=== PATIENT | male | born 1950 | race Caucasian/White ===

== ENCOUNTER 2019-12-01 22:32 | Emergency (ER) | payer MEDICARE, SELFPAY ==
[2019-12-01 22:55] VITALS: BP 179/85; PULSE 68; RESP 16; TEMP 37; O2SAT 98; BMI 28.7
--- NOTE | 2019-12-01 23:20 | XR_ITS ---
WS: [id number] XR chest 1V portable [id number] REASON FOR EXAM: pain FINDINGS: Fractures are noted in the left lateral chest seventh, eighth, ninth ribs. No pneumothorax. No pleural reaction. Scoliotic curve convex to the right. Arteriosclerotic changes in the arch of the aorta. There is no pneumonia, pleural effusion, or pulmonary edema. There is hilum and apices normal. XR/XR chest 1V portable [id number] IMPRESSION: Multiple rib fractures on the left side
--- NOTE | 2019-12-01 23:20 | W.ED.GENADLT ---
HPI - General Adult General: Chief complaint: General Medical Stated complaint: abd pain Time Seen by Provider: 12/01/19 23:09 Source: patient Mode of arrival: ambulatory Limitations: no limitations History of Present Illness: HPI narrative: Patient is a very nice 69-year-old male who presents to ED today with complaints of pain in the left lower chest/abdomen that began abruptly while coughing. Patient states he has done this previously and was reportedly told he had some cartilage in one of the left ribs. Patient states the pain can be directly reproduced with palpation and deep inhalation. He denies any substernal chest pain, difficulty breathing, shortness of breath. Onset (ago): hour(s) Location: chest and abdomen Radiation: non-radiation Relieving factors: none Exacerbating factors: movement and other (palpation, deep inhalation ) Associated symptoms: Deny chest pain, dyspnea, headache(s), nausea, rash, palpitations, syncope or vomiting Treatments prior to arrival: none Review of Systems Const: Denies: fever or chills Card: Denies: chest pain, palpitations, irregular heart rhythm, edema, lightheadedness, syncope, pre-syncope or shortness of breath when lying down Resp: Reports: pain on inspiration; Denies: shortness of breath, productive cough, non-productive cough, change in phlegm color, coughing up blood or chest congestion GI: Denies: abdominal pain, nausea, vomiting or diarrhea : Denies: flank pain, difficulty urinating, painful urination, urinary frequency, urinary urgency or urinary hesitancy Musc: Denies: neck pain or back pain Skin/Breast: Denies: rash Neuro: Denies: headache, numbness in extremities, weakness in extremities or changes in sensation PFS ED PFSH: Social History Smoking and tobacco status: current every day smoker Physical Exam Const: COMMON NORMALS: no apparent distress, average body habitus, oriented x3, no limitations, healthy appearing, alert and well nourished Chest: COMMONS NORMALS: inspection of chest normal and palpation of chest normal Resp: COMMON NORMALS: normal respiratory effort and clear to auscultation bilaterally AUSCULTATION: clear to auscultation bilaterally Cardio: COMMON NORMALS: regular rate and regular rhythm RATE: regular rate RHYTHM: regular rhythm GI: COMMON NORMALS: normal to inspection, nondistended, normoactive bowel sounds, soft to palpation, no hepatosplenomegaly and no masses PALPATION: Yes soft, Yes tender (LUQ; just inferior from bony ribs-palpation reproduces pain) and Yes no hepatosplenomegaly OTHER: pt with midline ventral hernia that he states has been present for years; non-painful : COMMON NORMALS: Yes no CVA tenderness BLADDER/KIDNEY EXAM: Yes no CVA tenderness Back/Pelvis: COMMON NORMALS: no CVA tenderness, thoracic and lumbar spine normal to inspection, no thoracic nor lumbar tenderness and thoraco-lumbar ROM normal Extremity: COMMON NORMALS: normal to inspection Neuro: COMMON NORMALS: oriented x3 SENSORIUM/ORIENTATION: Yes alert Skin: COMMON NORMALS: no rashes or lesions noted GENERAL SKIN EXAM: no rashes or lesions noted Course Vital Signs: Vital signs: Vital Signs Temperature 98.6 F 12/01/19 22:55 Pulse Rate 66 12/02/19 01:02 Respiratory Rate 14 12/02/19 01:02 Blood Pressure 164/73 12/02/19 01:02 Pulse Oximetry 98 12/02/19 01:02 [facility] - General Adult Lab Data: Labs: Lab Results 12/01/19 12/01/19 12/02/19 Range/Units 23:30 23:30 00:19 WBC 5.5 (4.0-10.0) 10^3/ uL RBC 4.47 (4.1-5.3) 10^6/u L Hgb 14.4 (11.7-16.6) g/dL Hct 39.6 L (42.0-52.0) % MCV 88.6 (80-94) fL MCH 32.2 (28.0-34.0) pg MCHC 36.4 H (30.0-36.0) g/dL RDW 13.3 (12.1-15.1) % Plt Count 142 (130-400) 10^3/c mm MPV 9.5 (7.4-10.4) fL Neut % (Auto) 64.6 % Lymph % (Auto) 19.8 % Irion % (Auto) 9.1 % Eos % (Auto) 4.0 % Baso % (Auto) 1.6 % Neut # (Auto) 3.6 (1.8-7.7) 10^3/u L Lymph # (Auto) 1.1 (0.8-4.8) 10^3/u L Irion # (Auto) 0.5 (0.2-0.9) 10^3/u L Eos # (Auto) 0.2 (0.0-0.8) 10^3/u L Baso # (Auto) 0.1 (0.0-0.1) 10^3/u L Nucleated RBC % (a uto) 0 % Nucleated RBCs # 0.0 /100WBC Sodium 133 L (136-145) mmol/L Potassium 4.1 (3.5-5.1) mmol/L Chloride 96 L (98-107) mmol/L Carbon Dioxide 26 (22-29) mmol/L Anion Gap 15.1 (5-19) BUN 11 (8-23) mg/dL Creatinine 1.0 (0.7-1.2) mg/dL GFR Calculation 74.3 L (90-130) mL/min Glucose 354 H (65-115) mg/dL Calculated Osmolal ity 286 (285-295) mOsm/k g Calcium 9.5 (8.5-10.5) mg/dL Total Bilirubin 0.6 (0.15-1.2) mg/dL AST 27 (0-40) U/L ALT 33 (0-41) U/L Alkaline Phosphata se 56 (40-130) IU/L Total Protein 7.1 (6.6-8.7) g/dL Albumin 4.0 (3.5-5.2) g/dL Globulin 3.1 (1.3-4.6) g/dL Lipase 54 (13-60) U/L Urine Color Yellow (Yellow) Urine Appearance Clear (CLEAR) Urine pH 5 (5-7) Ur Specific Gravit y 1.010 (1.005-1.030) Urine Protein Neg (Negative) Urine Glucose (UA) Norm (Normal) Urine Ketones Negative (Negative) Urine Blood Neg (Negative) Urine Nitrate Negative (Negative) Urine Bilirubin Neg (NEGATIVE) Urine Urobilinogen Norm (Negative) mg/dL Ur Leukocyte Lacey ase Negative (Negative) Imaging Data^: CXR: My impression: NAD Discharge Plan Discharge Patient Disposition: Home, Self-Care Clinical Impression: Strain of abdominal wall Qualifiers: Encounter type: initial encounter Qualified Code(s): S39.011A - Strain of muscle, fascia and tendon of abdomen, initial encounter Condition: Stable Prescriptions: No Action metoprolol tartrate 100 mg tablet RF: 0 atorvastatin 40 mg tablet RF: 0 fenofibrate 54 mg tablet RF: 0 tamsulosin 0.4 mg capsule PO RF: 0 glipizide 5 mg tablet RF: 0 aspirin 325 mg Tablet 325 mg PO DAILY RF: 0 Discharge Orders: Discharge Order (Routine); Ordered 12/02/19 Ordered By: Noy Joyce Referrals: Gulshan Javier MD [Primary Care Provider] - Discharge Diet: Usual diet Discharge Activity: Increase activity as tolerated Activity Restrictions/Additional Instructions: Return to the emergency department for worsening pain, nausea, vomiting, chest pain, shortness of breath, fevers, lightheadedness/dizziness, or any other concerns you may have. Coding Level of Care Code ED Analyst [employer] for Loretta Fwarthur Exam Comprehensive
[2019-12-01 23:36] LABS: Basophils # 0.1 10^3/uL (0.0-0.1); Basophils % 1.6 %; Eosinophils # 0.2 10^3/uL (0.0-0.8); Hematocrit 39.6 % (42.0-52.0); Hemoglobin 14.4 g/dL (11.7-16.6); Lymphocytes # 1.1 10^3/uL (0.8-4.8); Lymphocytes % 19.8 %; Mean Corpuscular HGB Conc 36.4 g/dL (30.0-36.0); Mean Corpuscular Hemoglobin 32.2 pg (28.0-34.0); Mean Corpuscular Volume 88.6 fL (80-94); Mean Platelet Volume 9.5 fL (7.4-10.4); Monocytes # 0.5 10^3/uL (0.2-0.9); Monocytes % 9.1 %; Neutrophils # 3.6 10^3/uL (1.8-7.7); Neutrophils % 64.6 %; Nucleated Red Blood Cells % 0 %; Platelet Count 142 10^3/cmm (130-400); Red Blood Count 4.47 10^6/uL (4.1-5.3); Red Cell Distribution Width 13.3 % (12.1-15.1); White Blood Count 5.5 10^3/uL (4.0-10.0)
[2019-12-01 23:56] LABS: Alanine Aminotransferase 33 U/L (0-41); Alkaline Phosphatase 56 IU/L (40-130); Anion Gap 15.1 (5-19); Aspartate Amino Transferase 27 U/L (0-40); Blood Urea Nitrogen 11 mg/dL (8-23); Calcium 9.5 mg/dL (8.5-10.5); Carbon Dioxide 26 mmol/L (22-29); Chloride 96 mmol/L (98-107); Globulin 3.1 g/dL (1.3-4.6); Glomerular Filtration Rate 74.3 mL/min (90-130); Glucose 354 mg/dL (65-115); Lipase 54 U/L (13-60); Osmolality Calculated 286 mOsm/kg (285-295); Potassium 4.1 mmol/L (3.5-5.1); Sodium 133 mmol/L (136-145); Total Bilirubin 0.6 mg/dL (0.15-1.2); Total Protein 7.1 g/dL (6.6-8.7)
[2019-12-02 00:16] VITALS: BP 137/86; PULSE 67; RESP 14; O2SAT 96
[2019-12-02 00:39] LABS: Add Urine Microscopic? NO
[2019-12-02 00:58] LABS: Bilirubin Urine Neg (NEGATIVE); Blood Urine Neg (Negative); Glucose Urine UA Norm (Normal); Ketones Urine Negative (Negative); Leukocyte Esterase Urine Negative (Negative); Nitrate Urine Negative (Negative); Protein Urine Neg (Negative); Urine Appearance Clear (CLEAR); Urine Color Yellow (Yellow); Urobilinogen Urine Norm (Negative); pH Urine 5 (5-7)
[2019-12-02 01:02] VITALS: BP 164/73; PULSE 66; RESP 14; O2SAT 98
[2019-12-02 01:32] VITALS: BP 140/74; PULSE 70; RESP 14; O2SAT 98
== END 2019-12-02 01:33 | disposition home or self-care (01) ==
PROVIDERS: Emergency Provider Physician Assistant; Family Provider Family Medicine; PCP Family Medicine
DX: S39.011A Strain of muscle, fascia and tendon of abdomen, initial encounter (principal); F17.200 Nicotine dependence, unspecified, uncomplicated; X58.XXXA Exposure to other specified factors, initial encounter
CPT/HCPCS: 12345; 36415; 71045; 80053; 81003; 83690; 85025; 99281; 99283; A9270

== ENCOUNTER 2020-01-15 08:34 | Emergency (ER) | payer MEDICARE, SELFPAY ==
[2020-01-15 08:43] VITALS: BP 183/95; PULSE 64; RESP 16; TEMP 36.6; O2SAT 99; BMI 28.8
[2020-01-15 08:48] VITALS: BP 183/95; PULSE 64; RESP 16; O2SAT 99
--- NOTE | 2020-01-15 08:54 | XRR_ITS ---
PROCEDURE INFORMATION: Exam: XR Left Ankle Exam date and time: 01/15/2020 8:55 AM Age: 69 years old Clinical indication: Injury or trauma; Fall; Initial encounter; Blunt trauma; Ankle; Left TECHNIQUE: Imaging protocol: XR Left ankle. Views: 3 or more views. COMPARISON: No relevant prior studies available. FINDINGS: Bones/joints: No acute bony injury or malalignment in the left ankle mortise. Calcaneal spur. Soft tissues: Calcification at the Achilles tendon attachment site. Vasculature: Vascular calcification. XR/XR ankle LT min 3V* [id number] IMPRESSION: No acute bony injury or malalignment in the left ankle mortise.
--- NOTE | 2020-01-15 08:54 | XRR_ITS ---
PROCEDURE INFORMATION: Exam: XR Left Foot Complete Exam date and time: 01/15/2020 8:55 AM Age: 69 years old Clinical indication: Injury or trauma; Fall; Initial encounter; Blunt trauma; Foot; Left TECHNIQUE: Imaging protocol: XR Left foot. Views: 3 or more views. COMPARISON: No relevant prior studies available. FINDINGS: Bones/joints: Calcaneal spur. Degenerative change prior Acute comminuted fracture involving the proximal aspect of the left 5th proximal phalanx. Acute nondisplaced fracture involving the proximal aspect of the left 4th proximal phalanx. Linear radiolucency overlying the proximal aspect of the 5th metatarsal, suspicious for nondisplaced fracture. Clinical correlation recommended. Soft tissues: Calcification at the Achilles tendon attachment site. Mild soft tissue swelling. XR/XR foot LT min 3V* [id number] IMPRESSION: 1. Acute comminuted fracture involving the proximal left 5th proximal phalanx. 2. Acute nondisplaced fracture involving the proximal left 4th proximal phalanx. 3. Linear radiolucency overlying the proximal aspect of the 5th metatarsal, suspicious for nondisplaced fracture. Clinical correlation recommended.
--- NOTE | 2020-01-15 08:56 | ED_ITS ---
HPI - Extremity Problem General: Chief complaint: Extremity Injury, Lower Stated complaint: LEFT FOOT INJURY Time Seen by Provider: 01/15/20 08:41 History of Present Illness: HPI Narrative: 69-year-old male who comes in complaining of ecchymosis and swelling in his left foot. About 2 weeks ago he fell off a ladder and he kicked something on the way down he thought he hit the edge of a countertop. He has been ambulatory since then and doing fairly well but last few days he has noticed some swelling in his toes and some ecchymosis developing along the heel of the foot add second third and fourth toes. He has no other injury did not strike his head did not lose consciousness he actually has minimal discomfort at this time. MD Complaint: extremity swelling Onset (ago): day(s) Location: left Radiation: none Relieving factors: nothing Exacerbating factors: nothing Associated symptoms: Deny arthralgias, chest pain, fever(s), myalgias or rash Review of Systems Const: Denies: fever ENMT: Denies: throat pain, ear pain, nasal discharge or nasal congestion Card: Denies: chest pain Resp: Denies: shortness of breath, productive cough or non-productive cough GI: Denies: abdominal pain, nausea, vomiting, vomiting blood, coffee grounds in vomit, diarrhea, constipation, bloating, blood in stool or black tarry stool : Denies: flank pain, painful urination, urinary frequency or urinary urgency Skin/Breast: Denies: rash or itching PFSH ED PFSH: Social History Smoking and tobacco status: current every day smoker Physical Exam Const: COMMON NORMALS: no apparent distress GENERAL APPEARANCE: cooperative and comfortable ORIENTATION/CONSCIOUSNESS: Yes awake, Yes oriented to person, Yes oriented to place and Yes oriented to time HENMT: COMMON NORMALS: normocephalic, head/scalp atraumatic and hearing grossly normal bilaterally HEAD & SCALP: normocephalic and atraumatic Eye: COMMON NORMALS: PERRL, EOMs intact bilaterally, conjunctivae normal and no scleral icterus CONJUNCTIVA: Yes conjunctivae normal PUPIL: Yes PERRL Neck/C-Spine: COMMON NORMALS: full ROM, no lymphadenopathy, supple and no JVD Lymph: LYMPHATIC: no lymphadenopathy noted and no lymphedema noted Resp: COMMON NORMALS: normal respiratory effort, no retractions, no use of accessory muscles and clear to auscultation bilaterally AUSCULTATION: clear to auscultation bilaterally Cardio: COMMON NORMALS: no JVD, regular rate, regular rhythm and no murmurs RATE: regular rate RHYTHM: regular rhythm Extremity: OTHER: Ecchymosis on the dorsum of the second third fourth toe as well as long lateral portion of the calcaneus. There is minimal swelling to the toes none in the ankle or foot dorsalis pedis and posterior tibialis pulses are both normal. Neuro: SENSORIUM/ORIENTATION: Yes oriented to person, Yes oriented to place and Yes oriented to time Course Vital Signs: Vital signs: Vital Signs Temperature 97.9 F 01/15/20 08:43 Pulse Rate 64 01/15/20 08:48 Respiratory Rate 16 01/15/20 09:36 Blood Pressure 183/95 01/15/20 08:48 Pulse Oximetry 98 01/15/20 09:36 MDM - Extremity (Nontraumatic) MDM Narrative: Medical decision making narrative: No evidence of fracture. Resume activity as tolerated ice and elevate foot as needed. May use anti-inflammatories or Tylenol as needed if does not improve or has other issues which are either return to the emergency room or follow-up with primary care doctor. Discharge Plan Discharge Patient Disposition: Home, Self-Care Clinical Impression: Ankle sprain and strain Condition: Stable Prescriptions: No Action metoprolol tartrate 100 mg tablet RF: 0 atorvastatin 40 mg tablet RF: 0 fenofibrate 54 mg tablet RF: 0 tamsulosin 0.4 mg capsule PO RF: 0 glipizide 5 mg tablet RF: 0 aspirin 325 mg Tablet 325 mg PO DAILY RF: 0 Discharge Orders: Discharge Order (Routine); Ordered 01/15/20 Ordered By: Rod Nix Referrals: Gulshan Javier MD [Primary Care Provider] - Discharge Diet: Usual diet Discharge Activity: Increase activity as tolerated Discharge Date/Time: 01/15/20 09:37 Coding Level of Care Code ED Dispatcher [employer] for Loretta Fwd Exam Detailed
[2020-01-15 09:36] VITALS: RESP 16; O2SAT 98
== END 2020-01-15 09:37 | disposition home or self-care (01) ==
PROVIDERS: Emergency Provider Family Medicine; Family Provider Family Medicine; PCP Family Medicine
DX: S93.402A Sprain of unspecified ligament of left ankle, initial encounter (principal); S96.912A Strain of unspecified muscle and tendon at ankle and foot level, left foot, initial encounter; W11.XXXA Fall on and from ladder, initial encounter; F17.210 Nicotine dependence, cigarettes, uncomplicated; Z79.82 Long term (current) use of aspirin
CPT/HCPCS: 12345; 73610; 73630; 99281; 99282

== ENCOUNTER 2020-01-25 09:33 | Outpatient (CLI) | payer MEDICARE, SELFPAY ==
--- NOTE | 2020-01-25 09:43 | CT_ITS ---
WS: [id number] CT LUMBAR SPINE TECHNIQUE: Noncontrast CT of the lumbar spine with coronal and sagittal reformatted images. CLINICAL INFORMATION: ARTHRODESIS STATUS COMPARISON: July 20, 2019 DLP: 1945.[address] scans at [facility] use at least one of these dose optimization techniques: automat ed exposure control; mA and/or kV adjustment per patient size (includes targeted exams where dose is matched to clinical indication); or iterative reconstruction. FINDINGS: Mild lumbar curve convex left. Pedicle screw fixation L4-5 with interconnecting rods and la minectomy defects. Grade 1 anterolisthesis L4 on L5 is stable since July 20, 2019. No evidence of hardware loosening. Dorsal lateral bone graft material is unchanged. L1-L2: Mild annular bulging. Mild right and no significant left foraminal narrowing. Mild facet arthr opathy. L2-L3: Mild annular bulging with narrowing of the left subarticular recess. Mild central canal stenos is. Mild facet arthropathy. Foramen are patent. L3-L4: Mild annular bulging. Moderate facet arthropathy. Mild central canal stenosis. Mild left and n o significant right foraminal narrowing. L4-L5: Pedicle screw fixation with laminectomy defects. No evidence of hardware loosening. Moderate r ight and no significant left foraminal narrowing. Central canal is patent. Moderate facet arthropathy . L5-S1: Mild disc bulging with vacuum disc phenomenon. Mild annular bulging with slight effacement of the ventral thecal sac. Mild right and no significant left foraminal narrowing. Moderate facet arthro cheo. Visualized pelvic bony structures: Normal. Paravertebral soft tissues: Normal. CT/CT lumbar spine wo con* [id number] IMPRESSION: 1. Mild lumbar curve with pedicle screw fixation L4-5 and dorsal lateral bone g raft material is stable. Stable anterolisthesis L4 on L5. 2. No evidence of hardware loosening. Pedicle screws are unchanged. No evidence of hardware loosening. 3. Moderate bony foraminal narrowing worse at left L3-4 and right L4-5
== END 2020-01-25 09:34 | disposition home or self-care (01) ==
LOC: RADWPI 09:38
PROVIDERS: Family Provider Family Medicine; PCP Family Medicine; Visit Provider Specialist
DX: Z98.1 Arthrodesis status (principal); M48.061 Spinal stenosis, lumbar region without neurogenic claudication
CPT/HCPCS: 72131

== ENCOUNTER 2020-02-16 08:11 | Outpatient (CLI) | payer MEDICARE, SELFPAY ==
--- NOTE | 2020-02-16 08:36 | ECG_ITS ---
NAME OF STUDY: LEXISCAN SESTAMIBI STRESS TEST INDICATION: Shortness of Breath, LEXISCAN STRESS TEST ORDERING PHYSICIAN: Deep CLINICAL INFORMATION: Chest pain INTERPRETATION: 1. The patient was brought to the laboratory where Lexiscan was infused over 20 seconds. The resting blood pressure was 163/77. Maximum blood pressure was 189/74. The resting heart rate was 64 beats per minute. The maximum heart rate is 97 beats per minute. 2. The baseline electrocardiogram reveals sinus rhythm with significant baseline artifact, baseline ST segment depression and T wave inversion in the anterolateral leads. 3. With Lexiscan infusion, there were no ST segment changes to suggest ischemia. 4. The patient experienced no symptoms or arrhythmias during the examination. CONCLUSION: 1. Unremarkable Lexiscan infusion. 2. Nuclear imaging to follow. Electronically Signed On 02-16-2020 10:21:52 CDT by Severo Adame M.D. [email or web address]
--- NOTE | 2020-02-16 08:36 | NMCV_ITS ---
NM yogesh perf SPECT r/s* [id number] Ean Vargas Age: 69 Gender: M : 1950 Exam Date: 02/16/2020 08:36 Ordering Phys: Severo Adame MD ([email or web address]) Technologist: STEPHANIE Winkler Exam Location: [facility] Indications: SHORTNESS OF BREATH STRESS TEST Please see separate stress test report in [facility] for full findings IMAGE PROTOCOL Rest/Stress 1 Lexiscan Day Radiopharmaceutical Dose (mCi) Administration Site Administered by Rest: Tc-99m 10.6 IV STEPHANIE Larkin Sestamibi Stress:Tc-99m 31.6 IV STEPHANIE Larkin Sestamibi Rest: 16-Feb-2020 60 Discovery 630 Stress: 16-Feb-2020 30 Discovery 630 0.4mg Lexiscan. Images obtained in supine and prone position. SPECT RESULTS Technical Quality: Excellent Raw Data Analysis: Normal Image Corrections: No attenuation or motion correction applied Summed Stress Score: 5 Summed Rest Score: 1 Summed Difference Score: 5 PERFUSION FINDINGS Medium-sized area of fixed perfusion defect noted in basal to mid inferior inferoseptal wall on the rest images which showed medium-sized area of moderate to severe reversibility extending in the distal inferior wall region suggestive of old myocardial infarction surrounded by medium-sized area moderate to severe ischemia in the RCA territory. FUNCTIONAL RESULTS (calculated via Gated SPECT) Stress Image LV EF (%): 48 Stress EDV (mL):124 TID: 1.04 Stress ESV (mL):64 Rest Image LV EF (%): 48 FUNCTIONAL FINDINGS: There appeared to be inferior wall hypokinesis especially in the basal to mid inferior wall IMPRESSIONS Medium-sized area of old myocardial infarction versus scarring noted in basal to mid inferior inferoseptal wall surrounded by medium-sized area of moderate to severe di-infarct ischemia. This study is positive for ischemia in RCA territory. EKG segment will be documented separately. Marie Khan MD (Electronically Signed) Final Date: 16 February 2020 14:55 S
[2020-02-16 08:37] VITALS: BMI 28.5
[2020-02-16] MEDS: regadenoson 0.4 Mg/5 ml Syringe IVP (10:01)
[2020-02-16 10:17] VITALS: BP 167/75; PULSE 77
== END 2020-02-16 08:12 | disposition home or self-care (01) ==
LOC: RAD 08:14
PROVIDERS: Family Provider Family Medicine; PCP Family Medicine; Visit Provider Internal Medicine Cardiovascular Disease
DX: R06.02 Shortness of breath (principal); R07.9 Chest pain, unspecified; I25.2 Old myocardial infarction; I25.89 Other forms of chronic ischemic heart disease
CPT/HCPCS: 78452; 93017; A9500; J2785

== ENCOUNTER 2020-02-21 11:03 | Observation (INO) | payer MEDICARE, SELFPAY ==
[2020-02-18 10:17] VITALS: BMI 29.5
[2020-02-21] VITALS (51 sets, daily range): BP systolic 128–196; BP diastolic 71–107; PULSE 57–91; RESP 6–20; TEMP 36.5–36.8; O2SAT 97–99; BMI 29.5
--- NOTE | 2020-02-21 07:00 | XACV_ITS ---
Ht: 180 cm Wt: 96 kg BSA: 2.22 m2 Gender: Male : 1950 Any Known Allergies: Other Exam Priority: Routine Procedure(s): Procedure Description: Diagnostic procedure Procedure Description: Coronary Angiography Diagnostic Cath Status: Elective Diagnostic Findings Patient is a diabetic as well as a smoker who has fairly typical chest discomfort. Stress testing revealed ischemia in the distribution of the right coronary artery. Initially the procedure was started from the right radial artery. Patient has exceedingly tortuous proximal arm vessels to include the innominate and brachial arteries. Catheter was very difficult to place into the aorta. I was able to image the right coronary artery and the LAD but was never able to place a catheter properly past the left main coronary artery in order to image the circumflex. Multiple diagnostic catheters were attempted however it was not possible. I then switched to the right common femoral artery approach. Patient has an exceedingly tortuous aorta and an enlarged aorta proximally which also made catheter placement very difficult. The right coronary artery is occluded shortly after its origin. There are bridging collaterals from the proximal vessel to the distal right. 1 can observe the posterior descending and posterior left ventricular branches. The LAD is a large vessel and is mildly to moderately diffusely diseased along its entire course. The septal branches as well as the distal vessel gives off collaterals to the right coronary artery. The LAD contains a calcified, 70 to 80% stenosis in its proximal portion just prior to the takeoff of the first septal branch. The remainder the vessel contains no more than 30% stenoses. Circumflex is a moderate-sized vessel and gives off 2 marginal branches distally. In the proximal portion there is a 30 to 40% stenosis. There is collateral flow to the distal right coronary artery from the AV groove branch of the circumflex. After looking at the film in some detail I decided to make an attempt to stent the LAD since an interventional approach cannot be utilized for the right coronary artery. This is keeping in mind that the ischemia was in the distribution of the right coronary artery. I felt as though if I could stent the LAD and improve the collateral flow to the right it may benefit him. After multiple attempts with multiple different guides and multiple different size guides from both the arm and the common femoral artery I was simply unable to place a guide properly in the left main coronary artery in order to intervene on the LAD. Therefore, shortly thereafter the procedure was terminated. PCI Status: Elective Conclusions Occluded right coronary artery. 70% proximal LAD. 30% proximal circumflex. Unable to seat a guide from the arm or the right common femoral artery and unable to perform intervention on the LAD. Recommendations Plan initially will be to treat him medically. If this fails then coronary bypass surgery will be recommended with a left internal mammary to the LAD, vein graft to the right and possible vein graft to the circumflex. Pressures Phase:Rest AO : 119 mmHg / 58 mmHg ( 78 mmHg ) @ 4:20:00 AM 99 mmHg / 60 mmHg ( 77 mmHg ) @ 4:20:00 AM 124 mmHg / 71 mmHg ( 93 mmHg ) @ 4:24:00 AM 93 mmHg / 53 mmHg ( 74 mmHg ) @ 4:41:00 AM 105 mmHg / 56 mmHg ( 77 mmHg ) @ 4:43:00 AM 113 mmHg / 50 mmHg ( 75 mmHg ) @ 4:57:00 AM Clinical Evaluation EBL: 5mL-10mL Procedural Details Procedure Consent Obtained. Current Diagnosis : Chest Pain. Pre-Procedure Time Out. Identified patient by full name and date of as verbalized by the patient/guarantor. Does the consent match the physician's order: Yes. Accurate & Complete Informed Consent: Yes. Inpatient/Outpatient History & Physical on Chart: Yes. Visualize and Verify Site with Patient/Guarantor: N/A. Relevant Radiology Images available: Yes. Pre-op teaching completed and patient verbalized understanding. The risks, benefits, and alternatives of sedation and/or procedure were discussed by physician. The patient agrees to continue. Procedure started. [facility] Clinical Fraility Score: 3: Managing Well. Manager Of Digital Indications: Worsening Angina. Chest Pain Symptom Assessment: Typical Angina Symptoms. Correct patient, site and procedure confirmed by cath team. Current diagnosis: Chest Pain. PERRLA. Strong, equal hand mediator bilaterally. Lungs clear x 5 lobes. IV Site on Arrival: 20 gauge in the left anticubital. IV Fluids: 0.9% NaCl at KVO. 0 mL infused prior to laborer chemical processing. Pre Procedural Pulses: bilateral dorsalis pedis was 3+. Pre Procedural Pulses: bilateral posterior tibial was 2+. Pre Procedural Pulses: bilateral radial was 3+. Oxygen started at 2liters/min via nasal canula. right groin was prepped with chloroprep then draped in the usual sterile fashion. right radial was prepped with chloroprep then draped in the usual sterile fashion. Baseline sample Acquired. HR: 67 BPM. Physician notified. Patient's family unavailable. Physician arrived. Physician scrubbed in. Immediate Pre-Procedure Time Out. Correct Patient: Yes; Correct Procedure: Yes; Correct Site: Yes; Correct Patient Position: Yes; Correct Supplies: Yes; Dried Flammable Prep: Yes; Blood Products Available: N/A;. Lidocaine 1% infiltrated to the right radial. Arterial access obtained. A 6 nigerien TIG catheter in over wire. Multiple views taken of right coronary artery. Catheter redirected to the LCA. Catheter removed over the exchange wire. A 6 nigerien JL4 catheter in over wire. Multiple views taken of left coronary artery. Catheter removed over the exchange wire. A 6 nigerien JL4.5 catheter in over wire. Catheter removed over the exchange wire. Lidocaine 1% infiltrated to the right groin. A TR Band was successful obtaining hemostatsis at the Right Radial artery insertion site. Arterial access obtained. A 6 nigerien JL4.5 catheter in over wire. Multiple views taken of left coronary artery. Catheter removed over the exchange wire. A 6 nigerien JL4 catheter in over wire. Multiple views taken of left coronary artery. Physician review of cine films. Catheter removed over the exchange wire. 6 nigerien XB 3 guide catheter was inserted over the wire. Guide catheter out. 6 nigerien XB 3.5 guide catheter was inserted over the wire. [place] guidewire was advanced through the guide catheter to lesion in the prox LAD. Wire out. Guide catheter out. 6 nigerien JL 4 guide catheter was inserted over the wire. Guide catheter out. 6 nigerien JL 4.5 guide catheter was inserted over the wire. Guide catheter out. 6 nigerien JL 5 guide catheter was inserted over the wire. Guide catheter out. 6 nigerien XB 3.5 guide catheter was inserted over the wire. Guide catheter out. 6 nigerien XBLAD 4 guide catheter was inserted over the wire. Guide catheter out. Physician scrubbed out. A Suture was successful obtaining hemostatsis at the Right Femoral artery insertion site. Sheath(s) sutured into position with 2-0 silk and sterile 4x4's and Op-site applied over the site. No oozing or signs and symptoms of hematoma noted. Arterial sheath flushed and connected to tranducer and pressure bag with heparinized saline. Post Procedure: Pulses reassessed and unchanged. PERRLA. Strong, equal hand mediator bilaterally. No VTE prophylaxis required. Medication's Wasted: Nitro = 49.8 mcg Heparin = 4000 units. Total IV fluids: 100 mL. Contrast type used: Omnipaque 300 mgI/mL, 500 mL bottle. Post-op diagnosis: CAD. Complications: None. Estimated blood loss: 5mL-10mL. Procedure completed. Patient transferred by bed to 1st floor. Vital chart was stopped. Site: Right Radial artery Sheath Size: 6 Fr Hemostasis Method: TR Band Hemostasis Success: Successful Site: Right Femoral artery Sheath Size: 6 Fr Hemostasis Method: Suture Hemostasis Success: Successful Procedure Medications Start: 9:12 AM Stop: 9:12 AM Medication: Versed Amount: 1 mg Route: I.V. Start: 9:12 AM Stop: 9:12 AM Medication: Fentanyl Amount: 50 mcg Route: I.V. Start: 9:16 AM Stop: 9:16 AM Medication: Versed Amount: 1 mg Route: I.V. Start: 9:16 AM Stop: 9:16 AM Medication: Fentanyl Amount: 50 mcg Route: I.V. Start: 9:17 AM Stop: 9:17 AM Medication: Verapamil Amount: 5 mg Route: I.A. Start: 9:17 AM Stop: 9:17 AM Medication: Nitrogylcerin Amount: 200 mcg Route: I.A. Start: 9:19 AM Stop: 9:19 AM Medication: Heparin Amount: 5000 units Route: I.V. Start: 9:36 AM Stop: 9:36 AM Medication: Versed Amount: 2 mg Route: I.V. I, the attending physician, have reviewed and verified all procedure medications. Yes, all medications given per verbal order History/Risk Factors Hypertension: Yes Dyslipidemia: Yes Diabetic Therapy: Oral Peripheral Arterial Disease (PAD): Yes Myocardial Infarction (LA): No Obesity: No Renal Disease: No Tobacco Use: Current/Recent(w/in 1 year) Prior Interventions PCI: No CABG: No Valve Surgery: No Report Signatures Finalized by:Dr. Severo Adame MD on 02/21/2020 10:40:00 AM
[2020-02-21 08:17] LABS: Basophils # 0.1 10^3/uL (0.0-0.1); Basophils % 0.8 %; Eosinophils # 0.2 10^3/uL (0.0-0.8); Eosinophils % 2.5 %; Hematocrit 41.9 % (42.0-52.0); Hemoglobin 15.2 g/dL (11.7-16.6); Lymphocytes # 1.4 10^3/uL (0.8-4.8); Lymphocytes % 23.3 %; Mean Corpuscular HGB Conc 36.3 g/dL (30.0-36.0); Mean Corpuscular Hemoglobin 32.3 pg (28.0-34.0); Mean Corpuscular Volume 89.1 fL (80-94); Mean Platelet Volume 9.9 fL (7.4-10.4); Monocytes # 0.5 10^3/uL (0.2-0.9); Monocytes % 8.8 %; Neutrophils # 3.9 10^3/uL (1.8-7.7); Neutrophils % 63.9 %; Nucleated Red Blood Cells % 0 %; Platelet Count 150 10^3/cmm (130-400); Red Cell Distribution Width 13.6 % (12.1-15.1)
[2020-02-21] MEDS: diphenhydrAMINE 50 mg Capsule PO (08:21)
[2020-02-21 08:29] LABS: INR 0.95 (0.8-1.2)
[2020-02-21 08:38] LABS: Anion Gap 15.9 (5-19); Blood Urea Nitrogen 12 mg/dL (8-23); Calcium 9.6 mg/dL (8.5-10.5); Carbon Dioxide 24 mmol/L (22-29); Chloride 100 mmol/L (98-107); Glomerular Filtration Rate 66.6 mL/min (90-130); Glucose 231 mg/dL (65-115); Osmolality Calculated 285 mOsm/kg (285-295); Potassium 3.9 mmol/L (3.5-5.1); Sodium 136 mmol/L (136-145)
[2020-02-21] MEDS: sodium chloride 0.9% 1,000 ML 100 ML IV (11:00)
--- NOTE | 2020-02-21 12:37 | PC.RESP ---
SMOKING CESSATION AND PULMONARY REHAB INFORMATION SENT TO PATIENT.
[2020-02-21] MEDS: fentaNYL 50 mcg/mL INJ 2mL IVP (12:57)
[2020-02-21] MEDS: hyDRALAzine 20 mg/mL INJ 1 mL 10 MG IVP (12:58)
[2020-02-21] MEDS: metoprolol tartrate 50 mg Tablet 100 MG PO (12:59)
--- NOTE | 2020-02-21 15:04 | PC.NURSE ---
PATIENT ARRIVED TO FLOOR AT 1045, SHEATH INTACT, TR BAND IN PLACE. PULSES PALPABLE WRISTS AND FEET DORSAL AND POST TIB SITES. NOTED BP ON ARTLINE READING ABOVE 145 SYSTOLIC, PATIENT GIVEN FENTANYL AND HYDRALIINE PER ORDER TO PULL SHEATH WITH LESS CHANCE OF BLEEDING. PATIENT DID NOT TAKE AM MEDS SO LOPRESSOR GIVEN EARLY. PATIENT TAKES HIS STATIN AT NIGHT SO ALLOWED HIM TO SKIP TILL TONIGHT . PLAN FOR DISCHARGE AFTER DOWN TIME PER DR WHITE. PATIENT INFORMED OF HIS PLAN TO SEE THE PATIENT AFTER CLINIC AND TO SEND HIM HOME WHEN UP TIME SUCCESSFULLY COMPLETED. PATIENTS DAUGHTER COMING FROM [place] FOR HIS RIDE HOME. PATIENT WAS ABLE TO VOID PER URINAL PRIOR TO SHEATH REMOVAL. NO SIGNS OF BLEEDING, HEMATOMA, OR UNUSUAL PAIN DURING HOLD TIME. ALL SITE CHECKS AFTER A 25 MIN HOLD TILL NOW HAVE BEEN BENIGN.
--- NOTE | 2020-02-23 16:23 | PC.RESP ---
SMOKING CESSATION AND PULMONARY REHAB INFORMATION SENT TO PATIENT.
== END 2020-02-21 19:50 | disposition home or self-care (01) ==
LOC: ICU 11:03
PROVIDERS: Admitting Provider Internal Medicine Cardiovascular Disease; Family Provider Family Medicine; PCP Family Medicine; Visit Provider Internal Medicine Cardiovascular Disease
DX: I24.0 Acute coronary thrombosis not resulting in myocardial infarction (principal); I25.10 Atherosclerotic heart disease of native coronary artery without angina pectoris; I73.9 Peripheral vascular disease, unspecified; E78.5 Hyperlipidemia, unspecified; J44.9 Chronic obstructive pulmonary disease, unspecified; H91.90 Unspecified hearing loss, unspecified ear; R06.02 Shortness of breath; Z79.82 Long term (current) use of aspirin; E11.9 Type 2 diabetes mellitus without complications; I10 Essential (primary) hypertension; Z87.891 Personal history of nicotine dependence
CPT/HCPCS: 36415; 80048; 85025; 85610; 93454; 96375; C1769; C1887; C1894; G0378; J0360; J1644; J2001; J2250; J3010; J3490; J7030; Q0163; Q9967

== ENCOUNTER → 2020-03-01 09:45 | Outpatient (BNVA) | payer MEDICARE, SELFPAY | PROVIDERS: Family Provider Family Medicine; PCP Family Medicine; Visit Provider Nurse Practitioner Family | DX: I25.10 Atherosclerotic heart disease of native coronary artery without angina pectoris (principal); Z09 Encounter for follow-up examination after completed treatment for conditions other than malignant neoplasm | CPT/HCPCS: 80048 ==

== ENCOUNTER → 2020-06-21 10:55 | Outpatient (BNVA) | payer MEDICARE, SELFPAY | PROVIDERS: PCP Family Medicine; Visit Provider Family Medicine | DX: I25.10 Atherosclerotic heart disease of native coronary artery without angina pectoris (principal) | CPT/HCPCS: 87635 ==

== ENCOUNTER 2020-06-28 04:56 | Inpatient (IN) | payer MEDICARE, SELFPAY ==
[2020-06-21 07:52] VITALS: BMI 28.4
[2020-06-21 08:57] LABS: Basophils # 0.1 10^3/uL (0.0-0.1); Basophils % 1.4 %; Eosinophils # 0.1 10^3/uL (0.0-0.8); Eosinophils % 2.6 %; Hematocrit 41.2 % (42.0-52.0); Hemoglobin 14.4 g/dL (11.7-16.6); Lymphocytes % 22.5 %; Mean Corpuscular Hemoglobin 30.9 pg (28.0-34.0); Mean Corpuscular Volume 88.4 fL (80-94); Mean Platelet Volume 9.6 fL (7.4-10.4); Monocytes # 0.4 10^3/uL (0.2-0.9); Monocytes % 9.2 %; Neutrophils % 64.1 %; Nucleated Red Blood Cells % 0 %; Platelet Count 139 10^3/cmm (130-400); Red Blood Count 4.66 10^6/uL (4.1-5.3); Red Cell Distribution Width 14.1 % (12.1-15.1); White Blood Count 4.2 10^3/uL (4.0-10.0)
--- NOTE | 2020-06-21 09:00 | SUR.PREOP ---
CHLORAHEXADINE AND BACTROBAN CALLED TO [facility] IN [place] AND LEFT ON ANSWERING MACHINE, INSTRUCTED PT TO LOFTSMAN AND PT VERBALIZED UNDERSTANDING HE STATED HE WOULD GET A TEXT WHEN RX IS FILLED
[2020-06-21 09:14] LABS: INR 0.92 (0.8-1.2)
[2020-06-21 09:15] LABS: Partial Thromboplastin Time 29.7 SECONDS (23.9-36.7)
[2020-06-21 09:22] LABS: Alanine Aminotransferase 25 U/L (0-41); Albumin Level 4.4 g/dL (3.5-5.2); Alkaline Phosphatase 54 IU/L (40-130); Anion Gap 17.1 (5-19); Aspartate Amino Transferase 28 U/L (0-40); Blood Urea Nitrogen 10 mg/dL (8-23); Calcium 9.8 mg/dL (8.5-10.5); Carbon Dioxide 23 mmol/L (22-29); Chloride 102 mmol/L (98-107); Free T4 Free Thyroxine 1.27 ng/dL (0.82-1.77); Globulin 2.7 g/dL (1.3-4.6); Glomerular Filtration Rate 74.3 mL/min (90-130); Glucose 211 mg/dL (65-115); Osmolality Calculated 291 mOsm/kg (285-295); Potassium 4.1 mmol/L (3.5-5.1); Sodium 138 mmol/L (136-145); Thyroid Stimulating Hormone 1.84 uIU/mL (0.27-4.20); Total Bilirubin 0.7 mg/dL (0.15-1.2); Total Protein 7.1 g/dL (6.6-8.7)
[2020-06-21 09:27] LABS: Add Urine Culture? No; Add Urine Microscopic? YES; Bacteria Urine 1+ /hpf; Bilirubin Urine Neg (Negative); Blood Urine Neg (Negative); Glucose Urine UA Norm (Normal); Ketones Urine Negative (Negative); Leukocyte Esterase Urine Trace (Negative); Nitrate Urine Negative (Negative); Protein Urine Neg (Negative); Squamous Epithelial Cell Urine 0-4 /hpf (0-5); Urine Appearance Clear (CLEAR); Urine Color Yellow (Yellow); Urobilinogen Urine Norm (Negative); WBC Urine RARE /hpf (0-5); pH Urine 6.5 (5-7)
--- NOTE | 2020-06-21 09:30 | USCV_ITS ---
Ean Vargas Age: 69 Gender: M : 1950 Exam Date: 06/21/2020 09:29 Ordering Phys: Joshua Chacon MD (Andy) ([email or web address]) Technologist: QUITA CEVALLOS Exam Location: [facility] [place] Indication: PRE OP RIGHT LEFT LOWER EXTREMITY Diameter Diameter (cm) (cm) 0.34 High Thigh 0.41 0.26 Mid Thigh 0.23 0.21 Above Knee 0.23 0.20 Below Knee 0.25 0.19 Mid Calf 0.23 0.31 Ankle 0.21 RIGHT LEFT Findings The veins were found to be easily compressible. No evidence of thrombosis Conclusions Small to medium caliber patent veins bilaterally with no evidence of thrombosis. Venous dimensions are as mentioned above Dr Ranjan Adams MD FACC (Electronically Signed) Final Date: 21 June 2020 19:09 S
--- NOTE | 2020-06-21 10:15 | USCV_ITS ---
Ean Vargas Age: 69 Gender: M : 1950 Exam Date: 06/21/2020 08:55 Ordering Phys: Joshua Chacon MD (Andy) ([email or web address]) Technologist: QUITA CEVALLOS Exam Location: [facility] [place] Indication: PRE OP RIGHT LEFT RIGHT LEFT UPPER EXTREMITY Basilic Cephalic Basilic Cephalic 0.44 0.22 Prox Upper Arm 0.33 0.22 0.25 0.27 Mid Upper Arm 0.32 0.38 0.34 0.32 Dist Upper Arm 0.29 0.36 0.20 0.25 Prox Forearm 0.18 0.33 0.33 Mid Forearm 0.22 0.28 0.19 0.30 Dist Forearm Findings The veins are found to be easily compressible. No evidence of thrombosis. Conclusions The basilic and cephalic veins were found to be patent with no evidence of thrombosis. Small to medium caliber veins bilaterally The venous dimensions are as mentioned above Dr Ranjan Adasm MD FACC (Electronically Signed) Final Date: 21 June 2020 19:06 S
--- NOTE | 2020-06-21 12:49 | P.ANESASSM_ITS ---
Pre-Anesthetic Assessment Pre-Anesthetic Assessment: Height/Weight: Height 1.8 m Weight 92.533 kg Preop Diagnosis: Coronary artery disease Proposed Procedure: Operation Date: 06/26/20 07:00 Proposed Procedures p CABG(Not Applicable) - Joshua Chacon MD Was Beta Larissa taken within 24 hours: Yes Social: Social History: Tobacco and No alcohol Exam: Pre-Anes Outpt Exam: alert, oriented x 3, clear to auscultation bilaterally and regular rate & rhythm Airway: Submandibular: Other (Limited TMD with receeding mandible) Cervical ROM: Other (Limited CROM) MP: 3 Pulmonary: Pulmonary: None reported CV/HEM: CV/HEM: Angina (Stable), CAD and HTN Comments: 80% LAD, 30 %CFX : : Chronic renal Insufficiency Hepatic: Hepatic: None reported GI: GI: GERD Metabolic: Metabolic: DM Musc/skel: Musc/skel: None reported Neuropsych: Neuropsych: None reported Anesthetic Plan: ASA status: 4 (Disc PAC, A-line and post op vent in detail) PFSH Anesthesia PFSH: Medical History COPD (chronic obstructive pulmonary disease) Coronary artery disease Diabetes mellitus Fusion of lumbar spine Hard of hearing History of BPH Hyperlipidemia PVD (peripheral vascular disease) Skin cancer SOB (shortness of breath) Surgical History Arthrodesis status H/O cataract removal with insertion of prosthetic lens History of cholecystectomy History of lumbar fusion (~06/01/18) L4-5 laminectomy/fusion/fixation Hx of coronary angioplasty Hx of tonsillectomy Family History Father , AGE 84 CAD (coronary artery disease) Hypertension Diabetes Myocardial infarction Mother , AGE 83 Hypertension Diabetes Stroke Social History (Updated 06/21/20 @ 07:48 by Daniella Lazo) Smoking and tobacco status: former smoker Quit status (tobacco): has quit using tobacco Second hand smoke exposure: No Smoking risk assessment/counseling performed?: No Alcohol intake: current Alcohol intake frequency: 0-2 Drinks per Day Lives independently: Yes Marital status: Single Current occupational status: retired History of recent travel: No Data Anesthesia CBC & Chem 7: 06/21/20 08:28 06/21/20 08:28 Other Labs: Laboratory Results - last 48 hr 06/21/20 06/21/20 06/21/20 08:20 08:28 08:28 WBC 4.2 RBC 4.66 Hgb 14.4 Hct 41.2 L MCV 88.4 MCH 30.9 MCHC 35.0 RDW 14.1 Plt Count 139 MPV 9.6 Neut % (Auto) 64.1 Lymph % (Auto) 22.5 [place] % (Auto) 9.2 Eos % (Auto) 2.6 Baso % (Auto) 1.4 Neut # (Auto) 2.70 Lymph # (Auto) 1.0 [place] # (Auto) 0.4 Eos # (Auto) 0.1 Baso # (Auto) 0.1 Nucleated RBC % (auto) 0 Nucleated RBCs # 0.0 PT 12.70 INR 0.92 APTT 29.7 Sodium Potassium Chloride Carbon Dioxide Anion Gap BUN Creatinine GFR Calculation Glucose Calculated Osmolality Calcium Total Bilirubin Direct Bilirubin AST ALT Alkaline Phosphatase Total Protein Albumin Globulin TSH Free T4 Urine Color Yellow Urine Appearance Clear Urine pH 6.5 Ur Specific [place] 1.010 Urine Protein Neg Urine Glucose (UA) Norm Urine Ketones Negative Urine Blood Neg Urine Nitrate Negative Urine Bilirubin Neg Urine Urobilinogen Norm Ur Leukocyte Esterase Trace H Urine RBC None Urine WBC Rare Ur Squamous Epith Cells 0-4 H Amorphous Sediment Not Reportable Urine Bacteria 1+ H Urine Yeast Trace Blood Type Rho(D) Type Antibody Screen Crossmatch 06/21/20 06/21/20 08:28 08:28 WBC RBC Hgb Hct MCV MCH MCHC RDW Plt Count MPV Neut % (Auto) Lymph % (Auto) [place] % (Auto) Eos % (Auto) Baso % (Auto) Neut # (Auto) Lymph # (Auto) [place] # (Auto) Eos # (Auto) Baso # (Auto) Nucleated RBC % (auto) Nucleated RBCs # PT INR APTT Sodium 138 Potassium 4.1 Chloride 102 Carbon Dioxide 23 Anion Gap 17.1 BUN 10 Creatinine 1.0 GFR Calculation 74.3 L Glucose 211 H Calculated Osmolality 291 Calcium 9.8 Total Bilirubin 0.7 Direct Bilirubin 0.30 AST 28 ALT 25 Alkaline Phosphatase 54 Total Protein 7.1 Albumin 4.4 Globulin 2.7 TSH 1.84 Free T4 1.27 Urine Color Urine Appearance Urine pH Ur Specific [place] Urine Protein Urine Glucose (UA) Urine Ketones Urine Blood Urine Nitrate Urine Bilirubin Urine Urobilinogen Ur Leukocyte Esterase Urine RBC Urine WBC Ur Squamous Epith Cells Amorphous Sediment Urine Bacteria Urine Yeast Blood Type A Positive Rho(D) Type Positive Antibody Screen Negative Crossmatch See Detail Cardiac Studies: No Data to Display
[2020-06-28] VITALS (57 sets, daily range): BP systolic 98–175; BP diastolic 43–93; PULSE 62–105; RESP 12–22; TEMP 36.1–37.9; O2SAT 97–100
--- NOTE | 2020-06-28 05:25 | ECG_ITS ---
[facility] Test Date: 2020-06-28 Pat Name: Ena Vargas Department: Room: Gender: Male Inside [employer]: : 1950 Requested By: Ilana Bonilla Order Number: [id number] MD: Jelani Cordon M.D. Measurements Intervals [place] Rate: 61 P: 61 PA: 171 QRS: 43 QRSD: 97 T: 54 QT: 412 QTc: 418 Interpretive Statements SINUS RHYTHM Compared to ECG 01/25/2017 23:45:14 ST (T wave) deviation no longer present Electronically Signed On 06-29-2020 20:53:09 CDT by Jelani Cordon M.D. [id number]
[2020-06-28] MEDS: sodium chloride 0.9% 1,000 ML 30 ML IV (05:35)
[2020-06-28] MEDS: lidocaine 1% INJ 20 mL INTRADERMA ×2 (05:35→05:40)
[2020-06-28 05:50] LABS: Glucose Point of Care 179 mg/dL (70-110)
--- NOTE | 2020-06-28 06:03 | W.PM.OPSUD ---
Surgery/Procedure H&P Update DATE OF PROCEDURE: June 28, 2020 DATE H&P PERFORMED: 06/08/20 H&P UPDATE INFORMATION: I have reviewed H&P completed within last 30 days, I have examined patient prior to procedure and No changes to prior documentation CHANGES TO PREVIOUS DOCUMENTATION: I have conferred personally with Mr. Vargas' daughter, who resides in [place]. Rationale for surgical intervention were frankly discussed. Risk of the procedure were frankly reviewed. She is keenly aware. All questions were answered. We will keep in close contact with her throughout the procedure and postoperatively. Mr. Vargas did have one episode of chest discomfort this past week at around 3 AM requiring 1 nitroglycerin for relief. PREOP DIAGNOSIS: Coronary artery disease PRIMARY INDICATION FOR PROCEDURE: Severe two-vessel coronary artery disease not amenable to percutaneous intervention and recalcitrant to medical management. PLANNED PROCEDURE: Operation Date: 06/28/20 07:00 Proposed Procedures p CABG(Not Applicable) - Joshua Chacon MD
[2020-06-28] MEDS: mupirocin oint 22 gm 1 APPLIC NASAL (06:10)
--- NOTE | 2020-06-28 06:20 | P.ANESUD_ITS ---
Pre-Anesthetic Update Pre-Anesthetic Assessment: Date of Surgery/Procedure: 06/28/20 Preop Barbara gnosis: Coronary artery disease Proposed Procedure: Operation Date: 06/28/20 07:00 Proposed Procedures p CABG(Not Applicable) - Joshua Chacon MD Any changes to Pre-Anesthetic Assessment?: No Last Intake: Intake Last Liquid Date 06/27/20 Last Liquid Time 23:30 Last Solid Date 06/27/20 Last Solid Time 19:30 Labs Last 48hrs: Laboratory Results - last 48 hr 06/21/20 06/21/20 06/21/20 08:28 08:28 10:56 POC Glucose SARS-CoV-2 RNA (RT -PCR) Cancelled Cancelled Blood Type A Positive Rho(D) Type Positive Antibody Screen Negative Crossmatch See Detail 06/28/20 05:38 POC Glucose 179 SARS-CoV-2 RNA (RT -PCR) Blood Type Rho(D) Type Antibody Screen Crossmatch Vitals: Temperature 97 F L 06/28/20 05:12 Temperature Source Temporal Artery S can 06/28/20 05:12 Pulse Rate 76 06/28/20 05:12 Respiratory Rate 18 06/28/20 05:12 Blood Pressure 159/91 06/28/20 05:12 Blood Pressure Geraldine n 113 06/28/20 05:12 Pulse Oximetry 97 06/28/20 05:12 Oxygen Delivery Me thod 06/28/20 05:12 Exam: Pre-Anes Outpt Exam: alert, oriented x 3, clear to auscultation bilaterally and regular rate & rhythm Cardiac Studies: No Data to Display
[2020-06-28] MEDS: cefUROXime 1,500 MG in sodium chloride 0.9% (plus) 50 ML 100 MG IV ×2 (07:15→12:25)
--- NOTE | 2020-06-28 07:20 | XRR_ITS ---
PROCEDURE INFORMATION: Exam: XR Chest, 1 View Exam date and time: 06/28/2020 2:19 PM Age: 69 years old Clinical indication: Screening exam; Other screening; Prior surgery; Surgery date: Post-operative (0-2 days); Additional info: Status post cabg TECHNIQUE: Imaging protocol: XR of the chest Views: 1 view. COMPARISON: CR XR chest 1V portable [id number] 12/01/2019 11:56 PM FINDINGS: Tubes, catheters and devices: Endotracheal tube is in place the tip is 44 mm above the simon at the level of the clavicles A Alba-Dany catheter is in place on the right side extending to the right pulmonary artery. Lungs: Right hilar vascular congestion is seen consistent with pulmonary vascular hypertension increased since prior low lung. Low lung volumes are seen. No consolidation. A chest tube is in place on the left side extending into the left upper lobe. Pleural space: Unremarkable. No pleural effusion. No pneumothorax. Heart/Mediastinum: Unremarkable Bones/joints: Metallic sternotomy wires are in place. XR/XR chest 1V portable [id number] IMPRESSION: 1. No acute findings. 2. Low lung volumes. 3. Right side Alba-Dany catheter in the right pulmonary artery 4. Status post sternotomy 5. Chest tube left upper lung 6. Endotracheal tube is in place as described
[2020-06-28] MEDS: levofloxacin-dextrose 5 % 500 MG/100 ML PREMIX 100 MG IV (07:45)
[2020-06-28] MEDS: vancomycin 1,000 MG SDV 3000 MG IRRIGATION (07:57)
--- NOTE | 2020-06-28 14:18 | ECG_ITS ---
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 Measurements Intervals [place] Rate: 96 P: 55 DE: 152 QRS: 21 QRSD: 102 T: 65 QT: 368 QTc: 467 Interpretive Statements SINUS RHYTHM MODERATE ST DEPRESSION [0.05+ mV ST DEPRESSION] Compared to ECG 06/28/2020 05:51:01 ST (T wave) deviation now present Electronically Signed On 06-29-2020 20:50:56 CDT by Jelani Cordon M.D. [id number]
--- NOTE | 2020-06-28 14:30 | PC.NURSE ---
Addendum entered by Alisson Cortes RN 06/28/20 16:12: Pacer wires noted to the anterior chest wall and connected to the external pacer box. pacer not on at this time. Original Note: PACU Pt here from OR s/p CABG x2. Sarah noted to the right wrist. Cordis and Central Line noted to the right IJ. Jorden wrap noted to the left leg. wound vac to sternum. pt with ET tube and garcia. Mediastinal chest tube and pleural chest tubes noted. dr warner and anesthesia team at bedside.
--- NOTE | 2020-06-28 14:45 | PM.PACU ---
PACU note PACU note: to ICU Post-Anesthesia Exam: unarousable Disposition: admitted
[2020-06-28 14:53] LABS: ABG PCO2 43.5 mmHg (35-45); ABG PH Result 7.35 (7.35-7.45); Arterial Blood Gas Hematocrit 33.1 % (42-52); Blood Gas Allen Test Pos; Blood Gas Operator Identificat BD; Blood Gas Sample Site ALINE; Blood Gas Sample Type Arterial; HCO3 ABG 23.7 mmol/L (22-26); Oxygen Device VENT
[2020-06-28 14:57] LABS: Basophils % 0.5 %; Eosinophils % 0.1 %; Hematocrit 29.8 % (42.0-52.0); Hemoglobin 10.4 g/dL (11.7-16.6); Lymphocytes # 0.7 10^3/uL (0.8-4.8); Lymphocytes % 9.5 %; Mean Corpuscular HGB Conc 34.9 g/dL (30.0-36.0); Mean Corpuscular Hemoglobin 31.5 pg (28.0-34.0); Mean Corpuscular Volume 90.3 fL (80-94); Mean Platelet Volume 9.6 fL (7.4-10.4); Monocytes # 0.8 10^3/uL (0.2-0.9); Monocytes % 11.1 %; Neutrophils # 5.85 10^3/uL (1.8-7.7); Neutrophils % 77.9 %; Nucleated Red Blood Cells % 0 %; Platelet Count 86 10^3/cmm (130-400); Red Cell Distribution Width 14.3 % (12.1-15.1); White Blood Count 7.5 10^3/uL (4.0-10.0)
--- NOTE | 2020-06-28 15:02 | PC.RESP ---
Pulmonary Rehab packet sent to patient.
[2020-06-28 15:27] LABS: INR 1.36 (0.8-1.2)
[2020-06-28 15:28] LABS: Partial Thromboplastin Time 29.9 SECONDS (23.9-36.7)
--- NOTE | 2020-06-28 15:30 | PC.NURSE ---
D/c from PACU to same level of care in icu
[2020-06-28 15:35] LABS: Blood Urea Nitrogen 8 mg/dL (8-23); Calcium 8.1 mg/dL (8.5-10.5); Carbon Dioxide 22 mmol/L (22-29); Chloride 110 mmol/L (98-107); Glomerular Filtration Rate 83.9 mL/min (90-130); Glucose 195 mg/dL (65-115); Magnesium 2.2 mg/dL (1.7-2.3); Osmolality Calculated 294 mOsm/kg (285-295); Sodium 140 mmol/L (136-145)
[2020-06-28 15:39] LABS: Anion Gap 12.8 (5-19); Potassium 4.8 mmol/L (3.5-5.1)
--- NOTE | 2020-06-28 15:49 | P.OP_ITS ---
Operative Report Date of procedure: June 28, 2020 Pre-op Diagnosis: Coronary artery disease Post-op diagnosis: same Procedure Done: 1. Coronary artery bypass grafting x2 (1 artery and 1 vein) utilizing in situ left internal mammary artery to the left anterior descending artery and reverse saphenous vein graft from aorta to the posterior descending artery branch of the right coronary artery. 2. Endoscopic saphenous vein harvesting of the greater saphenous vein from the left lower extremity. Implants: Vein marker x1 Pathology: none sent Surgeon: Joshua Chacon Anesthesia: General Estimated blood loss (mL): 500 Estimated blood loss: Blood was recovered and was processed by Cell Saver with subsequent retransfusion Findings: Left internal mammary artery was a good conduit and carried brisk flow Saphenous vein was of average quality LAD was heavily calcified with thickened intima in the mid and distal vessel and was a fair target The entire RCA system was heavily calcified with thickened nearly completely occluded lumen and distally at the area of the vein graft anastomosis, the vessel was also heavily calcified with a minimal lumen patency. The longevity of the vein conduit to this target is questionable. Condition: stable Disposition: ICU Brief History: Pleasant 69-year-old gentleman with severe two-vessel coronary disease including total occlusion of the RCA and high-grade 80+ percent lesion of the proximal LAD with diffuse disease and heavy calcification in both vessels. LAD could not be intervened despite an prior attempt and maximal medical management and still resulted in intermittent episodes of chest pain. Surgical revascularization was requested in an attempt to relieve angina. Details and risk of the procedure were carefully and frankly discussed as well as increased technical concerns related to the heavy calcific disease. All questions were answered appropriate consents were reviewed and signed. Procedure: Details and risks of the surgery were carefully and frankly explained to Mr. Vargas and his daughter. Particular risks of this surgery carefully reviewed with them included the possibility of , stroke, heart attack, major bleeding, infection, pneumonia, pain, organ failure, failure to benefit, early closure of the bypass grafts, prolonged hospital stay and subsequent need for further procedures. Increased risks for complications secondary to heavy calcific vessels were carefully reviewed. Patient and family understand these increased risks. All questions were answered and appropriate consents were reviewed and signed. Preoperative education for the patient and the family included both written and video materials. The patient and the family wished to proceed with plans for attempted surgical revascularization for severe coronary artery bypass. PROCEDURE: Preoperative evaluation was obtained from our Anesthesia colleagues and adequate IVs were confirmed. The patient was then taken to the Operating Room Suite where general anesthesia was induced. Appropriate invasive monitoring lines were placed, including large bore peripheral IVs, central line, [place]-Dany catheter, Odom catheter and associated monitoring leads. After careful positioning on the Operating Room table, the patient was subsequently sterilely prepped and draped. The patient then received low-dose Heparin prior to vein harvest. Greater saphenous vein was harvested by endoscopic technique from the left lower extremity. Branches were secured with ligature and clips and the vein was extracted from the tunnel without tension. It was then flushed with a Heparin and albumin solution and prepared for grafting. Vein harvest sites were irrigated, platelet poor plasma infused into the tunnel and port sites closed with 3-0 and 4-0 Vicryl Plus suture. Simultaneously with vein harvesting, a median sternotomy was created utilizing a #10 scalpel blade with hemostasis controlled with cautery. After reaching the sternal table, the sternum was divided with a reciprocating saw. Bleeding was controlled with cautery and judicious use of bone wax. Following this, the left chest wall was elevated with a Rultract retractor. The left internal mammary artery was dissected free with branches being secured with clips and cautery. The distal end was left intact. After harvesting of the mammary artery, a left pleural chest tube was then placed. The left chest wall was then lowered and moistened antibiotic-soaked laparotomy pads were placed in the wound, followed by an Ankeney retractor. The sternum was then and the pericardium opened and secured with stay sutures. After inspection, 2-0 pledgeted Ethibond sutures were placed at cannulation sites, at which time the patient was fully heparinized. Following this, the left internal mammary artery was taken down from its distal attachment, flushed with Papaverine solution, prepared for grafting and brisk flow confirmed. A soft bulldog was applied distally. Next, the heart was cannulated with a 22-Indonesian aortic cannula, two-stage venous cannula and aortic root vent. The patient was subsequently placed on cardiopulmonary bypass and cooled systemically to 34 degrees. Aortic cross-clamp was then carefully placed and 4 degree Celsius cold blood cardioplegia was administered through the aortic root in antegrade fashion. Prompt diastolic arrest was obtained. Left ventricular decompression was confirmed. The heart was cooled systemically with iced saline with an insulation pad in place to protect the phrenic nerve. Throughout the cross-clamp period, at 20-30 minute intervals, antegrade blood cardioplegia was administered to maintain asystole. We then inspected the cardiac surface and coronary anatomy. Both the RCA and the LAD had easily palpable severe calcific disease. We additionally dissected the RCA quite distal along the PDA and eventually opened the vessel at about 1 mm in size as far distal as possible, though still there was substantial calcific disease. Anastomosis was made with some difficulty utilizing reverse saphenous vein graft and 7-0 Prolene suture to this distal heavily diseased PDA. This vein was then anastomosed to a 4 mm aortotomy with running 5-0 Prolene suture. With the rewarming phase of bypass continuing, the left internal mammary artery was brought through a left anterior pericardial window into the field. The LAD was opened up in its distal one third and was approximately 1.5 mm in size with extensive calcifications and intimal thickening. The LOMAX was then anastomosed to the LAD with a running 7-0 Prolene suture. It should be noted that all distal coronary anastomoses were performed over the appropriate size coronary shunt which was removed prior to securing the distal suture line. Following this, aortic cross-clamp was released and de-airing maneuvers were performed through the aortic root vent, as well as being confirmed by transesophageal echocardiography. Dobutamine at 5 mcg per kilogram per minute was administered with good chronotropic and inotropic affect. The heart returned to spontaneous sinus rhythm and did not require cardioversion or pacing. After adequate recovery from the cross-clamp period and confirmation of cardiac stability, the patient was weaned from bypass without difficulty. Venous cannula was removed. Heparin was reversed with Protamine and confirmed by measurement of activated clotting time. The heart was then decannulated and cannulation sites were oversewn as required. Pacing wires were placed and brought through the skin and secured. Radiopaque markers were placed on the vein grafts at the level of aorta. Two mediastinal drains were placed and connected to Pleur-evac suction. The wound was carefully irrigated and hemostasis was confirmed. Ankeney retractor was removed and sponge and needle count was correct. The sternum was then reapproximated very carefully with interrupted #7 stainless steel wire with Surgicel strips used beneath the sternal table. Fascia was closed with #1 Vicryl suture with the next layers being closed with 2-0 and 3-0 suture. The skin was reapproximated carefully in a subcuticular manner. Sterile dressings were applied, followed by a vacuum-assisted dressing. Mr. Vargas was carefully removed from the operating room table and transferred to the Intensive Care Unit. His daughter was then counseled as to the details of the procedure. Dr. Cordon will be notified of our operative findings.
[2020-06-28] MEDS: propofol 1,000 MG/100 ML INJ 22.1 MG (15:51)
[2020-06-28] MEDS: aspirin 81 mg Chew Tablet PO (16:36)
--- NOTE | 2020-06-28 16:38 | PC.NURSE ---
swan teressa catheter noted at 57 at the hub
--- NOTE | 2020-06-28 17:02 | PC.NURSE ---
patient belongings brought in by daughter including glasses and dentures. belongings placed in closet in the room.
[2020-06-28] MEDS: chlorhexidine gluconate 0.12% Btl 473 mL 15 ML MUCOUS MEM (18:07)
[2020-06-28 18:19] LABS: Glucose Point of Care 179 mg/dL (70-110)
[2020-06-28 18:19] LABS: Glucose Point of Care 165 mg/dL (70-110)
[2020-06-28 18:19] LABS: Glucose Point of Care 179 mg/dL (70-110)
[2020-06-28 18:19] LABS: Glucose Point of Care 200 mg/dL (70-110)
[2020-06-28 18:43] LABS: Basophils # 0.1 10^3/uL (0.0-0.1); Basophils % 0.5 %; Hematocrit 32.9 % (42.0-52.0); Hemoglobin 11.4 g/dL (11.7-16.6); Lymphocytes # 0.5 10^3/uL (0.8-4.8); Lymphocytes % 4.6 %; Mean Corpuscular HGB Conc 34.7 g/dL (30.0-36.0); Mean Corpuscular Hemoglobin 31.6 pg (28.0-34.0); Mean Corpuscular Volume 91.1 fL (80-94); Mean Platelet Volume 9.6 fL (7.4-10.4); Monocytes # 1.1 10^3/uL (0.2-0.9); Monocytes % 9.9 %; Neutrophils # 8.93 10^3/uL (1.8-7.7); Neutrophils % 84.4 %; Nucleated Red Blood Cells % 0 %; Platelet Count 115 10^3/cmm (130-400); Red Blood Count 3.61 10^6/uL (4.1-5.3); Red Cell Distribution Width 14.5 % (12.1-15.1); White Blood Count 10.6 10^3/uL (4.0-10.0)
[2020-06-28] MEDS: propofol 1,000 MG/100 ML INJ 22.2 MG IV ×2 (18:46→23:06)
[2020-06-28 19:27] LABS: Anion Gap 15.6 (5-19); Blood Urea Nitrogen 9 mg/dL (8-23); Calcium 8.2 mg/dL (8.5-10.5); Carbon Dioxide 20 mmol/L (22-29); Chloride 108 mmol/L (98-107); Glomerular Filtration Rate 66.6 mL/min (90-130); Glucose 173 mg/dL (65-115); Magnesium 2.2 mg/dL (1.7-2.3); Osmolality Calculated 291 mOsm/kg (285-295); Potassium 4.6 mmol/L (3.5-5.1); Sodium 139 mmol/L (136-145)
[2020-06-28] MEDS: fentaNYL 50 mcg/mL INJ 2mL IVP (20:15)
[2020-06-28] MEDS: sodium chloride 0.9% 1,000 ML 75 ML IV (20:19)
[2020-06-28] MEDS: albumin 12.5 GM/250 ML VIAL IV (20:29)
--- NOTE | 2020-06-28 21:34 | PC.NURSE ---
Mental status Pt remains sedated. Hard of hearing. When yelling into left ear asked pt if he could hear me, opened eyes to verbal stimulation and nodded head yes. Instructed pt to senior it architect hands a few times and does not follow commands. Observed movements of both arms. Asked patient if he was in pain and nodded head yes.
[2020-06-28] MEDS: morphine 4 mg/mL SDV 1 mL 2 MG IVP ×2 (21:40→23:08)
[2020-06-28 21:54] LABS: Basophils # 0.1 10^3/uL (0.0-0.1); Basophils % 0.5 %; Hematocrit 30.4 % (42.0-52.0); Hemoglobin 10.5 g/dL (11.7-16.6); Lymphocytes # 0.3 10^3/uL (0.8-4.8); Lymphocytes % 3.6 %; Mean Corpuscular HGB Conc 34.5 g/dL (30.0-36.0); Mean Corpuscular Hemoglobin 31.5 pg (28.0-34.0); Mean Corpuscular Volume 91.3 fL (80-94); Mean Platelet Volume 9.8 fL (7.4-10.4); Monocytes # 0.9 10^3/uL (0.2-0.9); Monocytes % 9.1 %; Neutrophils % 86.3 %; Nucleated Red Blood Cells % 0 %; Platelet Count 107 10^3/cmm (130-400); Red Blood Count 3.33 10^6/uL (4.1-5.3); Red Cell Distribution Width 14.6 % (12.1-15.1); White Blood Count 9.4 10^3/uL (4.0-10.0)
[2020-06-28 22:15] LABS: Anion Gap 14.5 (5-19); Blood Urea Nitrogen 10 mg/dL (8-23); Calcium 8.1 mg/dL (8.5-10.5); Carbon Dioxide 21 mmol/L (22-29); Chloride 108 mmol/L (98-107); Glomerular Filtration Rate 66.6 mL/min (90-130); Glucose 164 mg/dL (65-115); Osmolality Calculated 291 mOsm/kg (285-295); Potassium 4.5 mmol/L (3.5-5.1); Sodium 139 mmol/L (136-145)
[2020-06-28] MEDS: nitroglycerin drip 50 MG/250 ML PREMIX IV (23:59)
[2020-06-29] VITALS (66 sets, daily range): BP systolic 104–184; BP diastolic 53–94; PULSE 76–114; RESP 13–27; TEMP 36.6–37.4; O2SAT 93–99
[2020-06-29] MEDS: oxyCODONE-APAP 5-325 mg Tablet PO ×4 (01:09→20:11)
[2020-06-29] MEDS: fentaNYL 50 mcg/mL INJ 2mL IVP ×3 (01:50→09:18)
[2020-06-29 02:52] LABS: ABG PCO2 40.2 mmHg (35-45); ABG PH Result 7.35 (7.35-7.45)
[2020-06-29 02:53] LABS: Base Excess ABG -3.3 mmol/L (-2.0-2.0); HCO3 ABG 22.1 mmol/L (22-26); Potassium Level - ABG 4.8 mmol/L (3.5-5.0)
[2020-06-29 02:55] LABS: ABG PCO2 43.6 mmHg (35-45); ABG PH Result 7.38 (7.35-7.45); Base Excess ABG 0.1 mmol/L (-2.0-2.0); HCO3 ABG 25.5 mmol/L (22-26); PO2 ABG 46.2 mmHg (80.0-100.0)
[2020-06-29 02:56] LABS: Arterial Blood Gas Hematocrit 28.2 % (42-52); Total Hemoglobin 9.2 g/dL (14-18)
[2020-06-29 02:57] LABS: HCO3 ABG 23.8 mmol/L (22-26)
[2020-06-29 02:58] LABS: Arterial Blood Gas Hematocrit 28.4 % (42-52); Base Excess ABG -0.8 mmol/L (-2.0-2.0); Potassium Level - ABG 5.1 mmol/L (3.5-5.0)
[2020-06-29 02:59] LABS: ABG PCO2 37.2 mmHg (35-45)
[2020-06-29 02:59] LABS: Total Hemoglobin 9.3 g/dL (14-18)
[2020-06-29 03:00] LABS: Base Excess ABG -1.4 mmol/L (-2.0-2.0); HCO3 ABG 23.2 mmol/L (22-26); Total Hemoglobin 8.8 g/dL (14-18)
[2020-06-29 03:01] LABS: ABG PCO2 40.3 mmHg (35-45); ABG PH Result 7.39 (7.35-7.45); Base Excess ABG -0.7 mmol/L (-2.0-2.0); HCO3 ABG 24.3 mmol/L (22-26); Potassium Level - ABG 4.3 mmol/L (3.5-5.0)
[2020-06-29 03:02] LABS: Arterial Blood Gas Hematocrit 26.6 % (42-52); Total Hemoglobin 8.7 g/dL (14-18)
[2020-06-29 03:03] LABS: ABG PCO2 43.6 mmHg (35-45); ABG PH Result 7.36 (7.35-7.45); Arterial Blood Gas Hematocrit 28.3 % (42-52); Base Excess ABG -1.2 mmol/L (-2.0-2.0); HCO3 ABG 24.3 mmol/L (22-26); Potassium Level - ABG 4.3 mmol/L (3.5-5.0); Total Hemoglobin 9.2 g/dL (14-18)
[2020-06-29 03:05] LABS: ABG PCO2 44.4 mmHg (35-45); ABG PH Result 7.34 (7.35-7.45); HCO3 ABG 24.2 mmol/L (22-26)
[2020-06-29 03:06] LABS: Base Excess ABG -1.7 mmol/L (-2.0-2.0); Potassium Level - ABG 4.2 mmol/L (3.5-5.0)
[2020-06-29 03:07] LABS: Arterial Blood Gas Hematocrit 40.6 % (42-52); Total Hemoglobin 13.3 g/dL (14-18)
[2020-06-29] MEDS: labetalol 5 mg/mL SDV 20mL 10 MG IVP (03:16)
[2020-06-29 03:41] LABS: ABG PCO2 37.2 mmHg (35-45); ABG PH Result 7.41 (7.35-7.45); Alveolar-Arterial Oxygen Gradi 9.1 mmHg (5-10); Base Excess ABG -0.8 mmol/L (-2.0-2.0); Blood Gas Operator Identificat HARKR; Blood Gas Sample Site ARTERIAL LINE; Blood Gas Sample Type Arterial; Carboxyhemoglobin 1.5 %THgb (0.4-20.1); HCO3 ABG 23.6 mmol/L (22-26); HGB O2 Sat 95.8 % (95-100); Methemoglobin 0.6 % (0.4-1.5); Oxygen Device VENT; Oxygen Saturation ABG 97.9; PO2 ABG 81.6 mmHg (80.0-100.0); Potassium Level - ABG 4.1 mmol/L (3.5-5.0); Total Hemoglobin 10.1 g/dL (14-18)
[2020-06-29 03:50] LABS: Basophils % 0.4 %; Hematocrit 29.6 % (42.0-52.0); Hemoglobin 9.9 g/dL (11.7-16.6); Lymphocytes # 0.7 10^3/uL (0.8-4.8); Lymphocytes % 7.1 %; Mean Corpuscular HGB Conc 33.4 g/dL (30.0-36.0); Mean Corpuscular Hemoglobin 31.2 pg (28.0-34.0); Mean Corpuscular Volume 93.4 fL (80-94); Mean Platelet Volume 9.9 fL (7.4-10.4); Monocytes # 1.2 10^3/uL (0.2-0.9); Monocytes % 12.2 %; Neutrophils # 7.56 10^3/uL (1.8-7.7); Neutrophils % 79.8 %; Nucleated Red Blood Cells % 0 %; Platelet Count 113 10^3/cmm (130-400); Red Blood Count 3.17 10^6/uL (4.1-5.3); Red Cell Distribution Width 14.7 % (12.1-15.1); White Blood Count 9.5 10^3/uL (4.0-10.0)
[2020-06-29 03:59] LABS: INR 1.15 (0.8-1.2)
[2020-06-29 04:00] LABS: Partial Thromboplastin Time 39.5 SECONDS (23.9-36.7)
[2020-06-29 04:12] LABS: Anion Gap 13.2 (5-19); Blood Urea Nitrogen 12 mg/dL (8-23); Calcium 7.8 mg/dL (8.5-10.5); Carbon Dioxide 22 mmol/L (22-29); Chloride 109 mmol/L (98-107); Glomerular Filtration Rate 66.6 mL/min (90-130); Glucose 123 mg/dL (65-115); Magnesium 2.2 mg/dL (1.7-2.3); Osmolality Calculated 291 mOsm/kg (285-295); Potassium 4.2 mmol/L (3.5-5.1); Sodium 140 mmol/L (136-145)
--- NOTE | 2020-06-29 04:50 | PC.NURSE ---
Extubated Propofol weaned. Pt alert and following commands. ABG completed and reviewed. Pt maintaining own respiratory rate 13-16 on CPAP mode and pulling good tidal volumes. RT extubated at this time placed on 2L NC. Breathing even and non-labored. Lungs diminished throughout. RT worked with IS pulling volumes of 1000.
[2020-06-29] MEDS: morphine 4 mg/mL SDV 1 mL 2 MG IVP (05:19)
--- NOTE | 2020-06-29 05:20 | PC.RESP ---
patient extubated at 0450 to 2L NC, tolerated well, will continue to monitor
--- NOTE | 2020-06-29 05:55 | PC.NURSE ---
Leivasy Catheter removed as ordered by Dr. Field. Pt tolerated well, one PVC noted. Catheter intact. Cordis remains in right internal jugular.
--- NOTE | 2020-06-29 06:00 | ECG_ITS ---
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 Measurements Intervals [place] Rate: 93 P: 14 CO: 124 QRS: 8 QRSD: 95 T: 54 QT: 406 QTc: 505 Interpretive Statements SINUS RHYTHM Compared to ECG 06/28/2020 15:11:27 ST (T wave) deviation no longer present Electronically Signed On 06-29-2020 20:49:53 CDT by Jelani Cordon M.D. [email or web address]/store/[id number]
--- NOTE | 2020-06-29 06:00 | XR_ITS ---
WS: [id number] Portable AP semiupright chest, 06/29/2020 Clinical Data: CABG, POD #1 Comparison: Portable chest, 06/28/2020 Findings: The [place]-Dany catheter has been removed. The endotracheal tube is no longer in position. Th e left chest tube, mediastinal tubes and right internal jugular venous catheter remain in position. N o pneumonia or pneumothorax seen. The heart size is normal. There are midline sternotomy sutures. Mon itor leads are on the chest wall. XR/XR chest 1V portable [id number] Impression: 1. Removal of endotracheal tube and [place]-Dany catheter. 2. No change in right internal jugular venous catheter, mediastinal tubes and l eft chest tube. 3. No acute cardiopulmonary disease is seen.
--- NOTE | 2020-06-29 06:21 | PM.PN ---
Subjective Subjective: Interval history: First morning following CABG x2. Extubated around 5 AM. Postop sternotomy discomfort under good control. Awake and conversing easily with staff. Nurses report no concerning events overnight. No arrhythmias. EKG this morning reveals normal sinus rhythm without acute changes. Chest x-ray is clear with stable cardiac silhouette. Appropriate support lines in position. No infiltrates or effusions are noted. Vitals/I&O/Wt Last Vital Signs Temp 97 F L 06/28/20 05:12 Pulse 94 06/29/20 06:00 Resp 15 06/29/20 06:00 BP 134/78 06/29/20 06:00 Pulse Ox 95 06/29/20 06:00 06/28/20 06/28/20 06/29/20 14:59 22:59 06:59 Intake Total 240 / 240 0 / 1989 314.683 / 2304.683 Output Total 2414 / 2414 578 / 2992 Balance 240 / 240 -664 / -424 -263.317 / -687.317 Weight last 48 hrs Weight 231 lb 11.2 oz Physical Exam Chest: COMMONS NORMALS: normal inspection of the chest (Chest wall is stable. Surgical dressings in position.) and normal palpation of entire chest wall Resp: COMMON NORMALS: normal respiratory effort, No retractions, No use of accessory muscles and clear to auscultation bilaterally AUSCULTATION: clear to auscultation bilaterally Cardio: COMMON NORMALS: regular rate (Grade 91 on this morning's exam) and regular rhythm RATE: regular rate (Grade 91 on this morning's exam) RHYTHM: regular rhythm Extremity: OTHER: There is some modest peripheral edema Urinary Catheter Management^: Odom: Cath Placed During This Visit: yes Reason for Continuing Indwelling Catheter: Accurate Measurement of Urinary Output in Critically Ill Patients Urinary Catheter Date of Insertion: 06/28/20 Urinary Catheter Time of Insertion: 08:23 Data : 06/29/20 03:35 06/29/20 03:35 A&P Assessment and plan (1) Status post aorto-coronary artery bypass graft: POD #1 status post CABG x2. Progressing well. Plan: Aspirin 325 mg daily. Metoprolol 50 mg twice daily. Lipitor 40 mg daily. CBC, BMP, chest x-ray in a.m. Out of bed in chair Status: Acute Attestations Medical Necessity Statement*: Status post CABG x2 secondary to medically refractory angina Time Spent in Patient Care: 16 - 35 minutes Coding Level of Care Code Acute Roll Grinder Operator for Loretta Fwarthur Diagnoses Status post aorto-coronary artery bypass graft Z95.1
[2020-06-29 07:19] LABS: Arterial Blood Gas Hematocrit 37.9 % (42-52); Blood Gas Allen Test Pos; Blood Gas Sample Type Arterial; Carboxyhemoglobin 3.6 %THgb (0.4-20.1); HGB O2 Sat 96.3 % (95-100); Ionized Calcium Level - ABG 1.2 mmol/L (1.1-1.4); Methemoglobin 0.8 % (0.4-1.5); Oxygen Saturation ABG > 100.0; Total Hemoglobin 12.4 g/dL (14-18)
[2020-06-29 07:19] LABS: Alveolar-Arterial Oxygen Gradi 6.5 mmHg (5-10); Blood Gas Allen Test Pos; Blood Gas Operator Identificat Anonymous; Blood Gas Sample Type Arterial; Carboxyhemoglobin 3.9 %THgb (0.4-20.1); Methemoglobin 0.5 % (0.4-1.5); Oxygen Saturation ABG 84.8
[2020-06-29 07:20] LABS: Blood Gas Allen Test Pos; Blood Gas Operator Identificat Anonymous; Blood Gas Sample Type Arterial; Carboxyhemoglobin 3.5 %THgb (0.4-20.1); HGB O2 Sat 96.6 % (95-100); Methemoglobin 0.9 % (0.4-1.5); Oxygen Saturation ABG > 100.0
[2020-06-29 07:20] LABS: Blood Gas Allen Test Pos; Blood Gas Operator Identificat Anonymous; Blood Gas Sample Type Arterial; Carboxyhemoglobin 3.4 %THgb (0.4-20.1); HGB O2 Sat 95.4 % (95-100); Ionized Calcium Level - ABG 1.2 mmol/L (1.1-1.4); Methemoglobin 1.2 % (0.4-1.5)
[2020-06-29 07:20] LABS: Blood Gas Allen Test Pos; Blood Gas Operator Identificat Anonymous; Blood Gas Sample Type Arterial; Carboxyhemoglobin 3.5 %THgb (0.4-20.1); HGB O2 Sat 96.5 % (95-100); Ionized Calcium Level - ABG 1.2 mmol/L (1.1-1.4); Methemoglobin 1.1 % (0.4-1.5); Oxygen Saturation ABG > 100.0
[2020-06-29 07:20] LABS: Blood Gas Allen Test Pos; Blood Gas Operator Identificat Anonymous; Blood Gas Sample Type Arterial; Carboxyhemoglobin 3.6 %THgb (0.4-20.1); HGB O2 Sat 97.1 % (95-100); Ionized Calcium Level - ABG 1.1 mmol/L (1.1-1.4); Methemoglobin 0.5 % (0.4-1.5); Oxygen Saturation ABG > 100.0
--- NOTE | 2020-06-29 08:00 | PC.NURSE ---
IS done, Pt able to get over the 1000 goal.
[2020-06-29] MEDS: tamsulosin 0.4 mg Capsule 0.8 MG PO (08:39)
[2020-06-29] MEDS: aspirin 325 mg Tablet PO (08:39)
[2020-06-29] MEDS: pantoprazole 40 mg SDV IVP (08:40)
[2020-06-29] MEDS: metoprolol tartrate 50 mg Tablet PO ×2 (08:40→10:25)
[2020-06-29] MEDS: chlorhexidine gluconate 0.12% Btl 473 mL 15 ML MUCOUS MEM (08:40)
[2020-06-29] MEDS: nicotine 14 mg Patch 1 PATCH TRANSDERMA (08:41)
[2020-06-29] MEDS: ondansetron 2 mg/ML SDV 2 mL 4 MG IVP (09:11)
--- NOTE | 2020-06-29 09:15 | PC.NURSE ---
Pt and OT at bedside. Pt out of bed to chair . Pt able to bear weight well. He c/o of nausea, Zofran admin. His B/P and HEart rate elevated, Nitro gtt increased. Fentanyl admin for pain. Labetalol IV not given due to pt just having received Metoprolol 50 mg and 2 5/325 mg oxcodone pain tablets prior to activity.
[2020-06-29 09:43] LABS: Glucose Point of Care 135 mg/dL (70-110)
[2020-06-29 09:43] LABS: Glucose Point of Care 121 mg/dL (70-110)
[2020-06-29 09:43] LABS: Glucose Point of Care 141 mg/dL (70-110)
[2020-06-29 09:43] LABS: Glucose Point of Care 132 mg/dL (70-110)
[2020-06-29 09:43] LABS: Glucose Point of Care 173 mg/dL (70-110)
[2020-06-29 09:43] LABS: Glucose Point of Care 151 mg/dL (70-110)
[2020-06-29 09:43] LABS: Glucose Point of Care 122 mg/dL (70-110)
[2020-06-29 09:43] LABS: Glucose Point of Care 122 mg/dL (70-110)
[2020-06-29 09:43] LABS: Glucose Point of Care 129 mg/dL (70-110)
[2020-06-29 09:43] LABS: Glucose Point of Care 155 mg/dL (70-110)
[2020-06-29 09:43] LABS: Glucose Point of Care 136 mg/dL (70-110)
[2020-06-29 09:43] LABS: Glucose Point of Care 130 mg/dL (70-110)
[2020-06-29 09:43] LABS: Glucose Point of Care 147 mg/dL (70-110)
[2020-06-29 09:43] LABS: Glucose Point of Care 127 mg/dL (70-110)
[2020-06-29 09:43] LABS: Glucose Point of Care 170 mg/dL (70-110)
--- NOTE | 2020-06-29 10:00 | PC.NURSE ---
Pt ambulated with PT in unit, approximately 75 ft. Tolerated well.
[2020-06-29] MEDS: sodium chloride 0.9% 1,000 ML 75 ML IV (10:25)
--- NOTE | 2020-06-29 10:40 | PC.NURSE ---
Dr Chacon, in [facility] , checked on pt. Discussed B/P and COrdis. Can removed Cordis. Pt home dose of metoprolol 100mg, pt received 50 mg this am as ordered. His SBP between 135 and 160, Nitro gtt now at 80 mcg. Pt has received pain medications. His home odse metoprolol restarted, and a now order of 50mg received.
[2020-06-29 12:37] LABS: Glucose Point of Care 99 mg/dL (70-110)
[2020-06-29 12:37] LABS: Glucose Point of Care 133 mg/dL (70-110)
--- NOTE | 2020-06-29 12:45 | ANE.PACU2 ---
Inpatient post-anesthesia follow up: Airway intact: Yes Vital signs: Temperature 97.8 F Pulse Rate 83 Respiratory Rate 18 Blood Pressure 140/81 Pulse Oximetry 98 Oxygen Delivery Me thod Nasal Cannula Oxygen Flow Rate 1.5 Fraction of Inspir ed Oxygen 28 Hydration adequate: Yes Nausea and vomiting: No Pain level: 5 Mental status: Baseline Additional Comments: extubated this morning, participating in incentive spirometry
--- NOTE | 2020-06-29 14:40 | PC.NURSE ---
Art line and Cordis removed. Art line removed. Pressure held until hemostatis obtained. No bruising or swelling noted at site. NO bleeding noted. Bioclusive dressing applied. Cordis removed after stitches removed. Pressure held until hemostasis obtained Chlora-prep used to cleansed around areas and remaining central line. Bioclusive dressing applied. Pt tolerated both very well
[2020-06-29] MEDS: nitroglycerin drip 50 MG/250 ML PREMIX 10.5 MG IV (15:39)
[2020-06-29 16:10] LABS: Glucose Point of Care 133 mg/dL (70-110)
[2020-06-29 16:10] LABS: Glucose Point of Care 102 mg/dL (70-110)
[2020-06-29 16:10] LABS: Glucose Point of Care 156 mg/dL (70-110)
[2020-06-29 16:32] LABS: Glucose Point of Care 117 mg/dL (70-110)
[2020-06-29 18:33] LABS: Glucose Point of Care 95 mg/dL (70-110)
[2020-06-29 18:33] LABS: Glucose Point of Care 114 mg/dL (70-110)
[2020-06-29] MEDS: metoprolol tartrate 50 mg Tablet 100 MG PO (18:51)
--- NOTE | 2020-06-29 19:20 | PC.NURSE ---
Shift summary: Pt is motivated. Pt has been OOB twice and amb around unit once. His heart rate and B/P ryan after first activity, Nitor adjusted, pain med given. Dr Chacon then increased Metoprolol back to home dose of 100mg. B/P better controlled. Nitro weaned from 80mcg/min to 30mcg/min. Insulin gtt still infusing, Blood sugars, all but one, remained within targeted range. Dr Chacon discontinued NS. Art line and Cordis removed today. Skin around chest tubes look well, that dressing changed. Jorden wrap removed off left leg, Incisions well approximated. Chest tubes: medistinal 215 ml , pleural 135 ml; both serosanginous drainage. Urine output minimal 250ml, but increasing at end of shift. He is tolerating his diet, eating well. Pt c/o of pain left side of chest, but also stated he had this before surgery, a little higher now due to chest tubes. Pt has needed minimal pain medication today, see MAR.
[2020-06-29] MEDS: atorvastatin 40 mg Tablet PO (20:11)
[2020-06-30] VITALS (33 sets, daily range): BP systolic 101–164; BP diastolic 62–94; PULSE 70–156; RESP 13–34; TEMP 36.8–37.7; O2SAT 93–99
[2020-06-30] MEDS: oxyCODONE-APAP 5-325 mg Tablet PO ×2 (02:11→21:10)
[2020-06-30] MEDS: morphine 4 mg/mL SDV 1 mL 2 MG IVP ×2 (02:22→21:41)
[2020-06-30 03:48] LABS: Basophils # 0.1 10^3/uL (0.0-0.1); Basophils % 0.6 %; Eosinophils # 0.1 10^3/uL (0.0-0.8); Eosinophils % 0.6 %; Hematocrit 25.4 % (42.0-52.0); Hemoglobin 8.4 g/dL (11.7-16.6); Lymphocytes % 9.5 %; Mean Corpuscular HGB Conc 33.1 g/dL (30.0-36.0); Mean Corpuscular Hemoglobin 31.1 pg (28.0-34.0); Mean Corpuscular Volume 94.1 fL (80-94); Mean Platelet Volume 9.5 fL (7.4-10.4); Monocytes # 1.2 10^3/uL (0.2-0.9); Monocytes % 11.4 %; Neutrophils # 8.12 10^3/uL (1.8-7.7); Neutrophils % 77.3 %; Nucleated Red Blood Cells % 0.2 %; Platelet Count 92 10^3/cmm (130-400); Red Cell Distribution Width 14.9 % (12.1-15.1); White Blood Count 10.5 10^3/uL (4.0-10.0)
[2020-06-30 04:20] LABS: Anion Gap 11.8 (5-19); Blood Urea Nitrogen 15 mg/dL (8-23); Calcium 7.8 mg/dL (8.5-10.5); Carbon Dioxide 23 mmol/L (22-29); Chloride 104 mmol/L (98-107); Glomerular Filtration Rate 74.3 mL/min (90-130); Glucose 95 mg/dL (65-115); Osmolality Calculated 281 mOsm/kg (285-295); Potassium 3.8 mmol/L (3.5-5.1); Sodium 135 mmol/L (136-145)
--- NOTE | 2020-06-30 06:00 | XR_ITS ---
WS: [id number] Portable AP upright chest, 06/30/2020 Clinical Data: POD #2 status post CABG Comparison: Portable chest, 06/29/2020 Findings: The patient has a poor inspiratory effort. The right internal jugular venous catheter, medi astinal tubes, left chest tube and monitor leads remain in the same position. The pulmonary vasculari ty appears to be prominent because of the poor inspiration. No pneumonia or pneumothorax is seen. The heart size is enlarged. Midline sternotomy sutures are noted. XR/XR chest 1V portable [id number] Impression: 1. No change in position of multiple tubes. 2. Poor inspiratory effort accentuates the heart size and the pulmonary vascul ar congestion.
--- NOTE | 2020-06-30 06:53 | P.PN_ITS ---
Subjective Subjective: Interval history: AA #2 status post CABG x2. Up in chair on rounds. Complains of left-sided chest discomfort, probably from the pleural tube. Intake and output is up about 2.5 L. Chest x-ray reveals some decreased aeration bilaterally though no shaista effusion. X-ray is also somewhat lordotic in view. Heart rate under better control though nurses have reported some o ccasional irregularity which may preclude postop A. fib. Chest tube output just over 400 cc past 24 hours Vitals/I&O/Wt Last Vital Signs Temp 98.9 F 06/30/20 06:00 Pulse 89 06/30/20 06:00 Resp 17 06/30/20 06:00 BP 134/73 06/30/20 06:00 Pulse Ox 97 06/30/20 06:00 06/29/20 06/29/20 06/30/20 14:59 22:59 06:59 Intake Total 2321.850 / 2321.850 1439.707 / 3761.557 261.2 / 4022.757 Output Total 326 / 326 410 / 736 515 / 1251 Balance 1994.850 / 0230.097 4008.707 / 3025.557 -253.8 / 2771.757 Weight last 48 hrs Weight 233 lb 6.4 oz Weight 231 lb 11.2 oz Physical Exam Neck/C-Spine: OTHER: Cordis was removed yesterday. Triple-lumen catheter remains in place in the right IJ. Chest: COMMONS NORMALS: normal inspection of the chest (Surgical dressings clean and dry. Wound VAC is in place. Drains are in position.) Resp: COMMON NORMALS: normal respiratory effort (Though he does have some sp linting related to chest wall discomfort.), No retractions and clear to auscultation bilaterally EFFORT & INSPECTION: Yes symmetric chest movement AUSCULTATION: clear to auscultation bilaterally Cardio: COMMON NORMALS: regular rate, regular rhythm, S1 normal heart sound present, No murmurs present (Cardio) and No rub (Cardio) RATE: regular rate RHYTHM: regular rhythm HEART SOUNDS: S1 normal heart sound present Extremity: OTHER: Just a trace of peripheral edema Urinary Catheter Management^: Odom: Cath Placed During This Visit: yes Reason for Continuing Indwelling Catheter: Accurate Measurement of Urinary Output in Critically Ill Patients Urinary Catheter Date of Insertion: 06/28/20 Urinary Catheter Time of Insertion: 08:23 Data : 06/30/20 03:20 06/30/20 03:20 A&P Assessment and plan (1) Status post aorto-coronary artery bypass graft: Postop day #2 status post CABG x2. Modest volume expansion. Plan: Lasix 20 mg IV now. Lasix 20 mg p.o. at 3 PM. Potassium chloride 40 mill equivalents IV piggyback. Amiodarone 4 mg twice daily. I will assess for plans to remove drains later midday. Consider possible transfer to [facility] later today. CBC, BMP, chest x-ray in a.m. Status: Acute Attestations Medical Necessity Statement*: Postop day #2 status post CABG Time Spent in Patient Care: 16 - 35 minutes Coding Level of Care Code Acute Investment Underwriter for Vivekg Fwd Diagnoses Status post aorto-coronary artery bypass graft Z95.1
[2020-06-30] MEDS: potassium chloride premix 100 ML 25 MEQ IV (07:22)
[2020-06-30] MEDS: amiodarone 200 mg Tablet 400 MG PO ×2 (07:22→17:22)
[2020-06-30] MEDS: FUROsemide 10 mg/mL SDV 2mL 20 MG IVP (07:22)
[2020-06-30] MEDS: tamsulosin 0.4 mg Capsule 0.8 MG PO (08:32)
[2020-06-30] MEDS: metoprolol tartrate 50 mg Tablet 100 MG PO ×2 (08:32→17:22)
[2020-06-30] MEDS: nicotine 14 mg Patch 1 PATCH TRANSDERMA (08:33)
[2020-06-30] MEDS: aspirin 325 mg Tablet PO (08:33)
--- NOTE | 2020-06-30 09:15 | PC.NURSE ---
recd. up in chair. c/o butt burning. assisted to standing and lambs wool to chair. heart rate to svt to s.t. with pacs.
[2020-06-30] MEDS: chlorhexidine gluconate 0.12% Btl 473 mL 15 ML MUCOUS MEM (10:42)
[2020-06-30 11:21] LABS: Glucose Point of Care 110 mg/dL (70-110)
[2020-06-30 11:21] LABS: Glucose Point of Care 96 mg/dL (70-110)
[2020-06-30 11:21] LABS: Glucose Point of Care 209 mg/dL (70-110)
[2020-06-30 11:21] LABS: Glucose Point of Care 98 mg/dL (70-110)
[2020-06-30 11:21] LABS: Glucose Point of Care 100 mg/dL (70-110)
[2020-06-30 11:21] LABS: Glucose Point of Care 115 mg/dL (70-110)
[2020-06-30 11:21] LABS: Glucose Point of Care 94 mg/dL (70-110)
[2020-06-30 11:21] LABS: Glucose Point of Care 100 mg/dL (70-110)
[2020-06-30 11:21] LABS: Glucose Point of Care 95 mg/dL (70-110)
[2020-06-30 11:21] LABS: Glucose Point of Care 94 mg/dL (70-110)
[2020-06-30 11:21] LABS: Glucose Point of Care 93 mg/dL (70-110)
[2020-06-30 11:21] LABS: Glucose Point of Care 103 mg/dL (70-110)
--- NOTE | 2020-06-30 12:56 | PC.NURSE ---
resting quietly in chair. angie. up well.
--- NOTE | 2020-06-30 14:09 | PC.NURSE ---
cvl removed from right. pressure applied for 3 min. no oozing at site.
[2020-06-30] MEDS: FUROsemide 20 mg Tablet PO (15:04)
[2020-06-30] MEDS: acetaminophen 325 mg Tablet 650 MG PO (15:33)
--- NOTE | 2020-06-30 15:38 | PC.NURSE ---
c/o being hot. therm. to 65. lo grade temp.
--- NOTE | 2020-06-30 16:32 | PC.NURSE ---
c/o pain below left shoulder. stated there is a knot there. during back rub did feel raised area below left scapula.
[2020-06-30] MEDS: labetalol 5 mg/mL SDV 20mL 10 MG IVP (17:22)
--- NOTE | 2020-06-30 17:30 | ECG_ITS ---
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 Measurements Intervals [place] Rate: 144 P: NC: -1 QRS: 21 QRSD: 93 T: 216 QT: 248 QTc: 384 Interpretive Statements ATRIAL FIBRILLATION WITH RAPID VENTRICULAR RESPONSE ST DEVIATION AND MODERATE T-WAVE ABNORMALITY, CONSIDER ANTEROLATERAL ISCHEMIA [-0.1+ mV T WAVE IN V3-V6] Compared to ECG 06/29/2020 05:36:37 T-wave abnormality now present Possible ischemia now present Sinus rhythm no longer present Electronically Signed On 06-30-2020 17:49:11 CDT by Pinky Gardner M.D. [email or web address]/[id number]
--- NOTE | 2020-06-30 18:16 | PC.NURSE ---
went into a-fib with rvr. dr. Bob notified. ekg done. cardizem bolus and cardizem gtt started.
[2020-06-30 18:36] LABS: Glucose Point of Care 214 mg/dL (70-110)
[2020-06-30] MEDS: atorvastatin 40 mg Tablet PO (20:42)
[2020-06-30 20:55] LABS: Glucose Point of Care 289 mg/dL (70-110)
--- NOTE | 2020-06-30 21:17 | PM.CONSULT ---
Providers/Reason For Consult Consulting Physican/Specialty*: Jelani Cordon MD/Cardiology Reason for Consult*: Post CABG afib Attending Physician: Joshua Chacon MD Primary Care Provider: Gulshan Javier MD History of Present Illness History of Present Illness Ean Vargas is a 69 year old male who I see in the office. Patient underwent coronary angiography by Dr. Adame which was completed on 02/21/2020 using a right radial converted to right femoral approach. Angiography revealed occlusion of the RCA shortly after the origin, with collaterals from the proximal vessel to distal right. Septal branches of the LAD and distal LAD give off collaterals to the RCA. There was a 70-80% proximal LAD stenosis, with approximately 30% stenosis in the remainder of the vessel. The circumflex contained 30-40% proximal stenosis, with collateral flow to the distal RCA from the AV groove branch of circumflex. Since RCA could not be intervened upon, it was decided to stent the LAD to improve flow to the RCA via the collaterals but the attempt to place the stent was unsuccessful. Patient underwent two-vessel coronary artery bypass surgery on 06/28/2020. Patient is extubated now. He went into postop atrial fibrillation. Initially was put on amiodarone drip switched to p.o. amiodarone today. His heart rates have stayed uncontrolled. Patient denies any chest pain however is continuing to have palpitations. His only chest discomfort is at the site of sternotomy. His heart rates were around 150 today. Review of Systems Narrative: CONSTITUTIONAL: No fever chills weight loss or gain or night sweats. [] HEENT: Normocephalic, atraumatic.[] RESPIRATORY: No cough, sputum, hemoptysis or wheezing.[] CARDIOVASCULAR: No shortness of breath, chest pain, PND, orthopnea, lower extremity edema, presyncope or syncope. Has significant palpitations. [] GI: no nausea vomiting diarrhea. 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 [] MUSCULOSKELETAL: No knee or joint pain or rashes. [] Meds/Allergies Home Medications and Allergies Home Medications Medication Instructions Recorded Confirmed Last Taken Type aspirin 325 mg PO DAILY 12/01/19 06/21/20 06/20/20 History fenofibrate 54 mg tablet 54 mg PO DAILY tab 02/01/20 06/21/20 06/27/20 16:00 History glipizide 5 mg tablet 10 mg PO DAILY tab 02/01/20 06/21/20 06/27/20 16:00 History metoprolol tartrate 100 mg tablet 100 mg PO BID tab 02/01/20 06/21/20 06/28/20 03:45 History tamsulosin 0.4 mg capsule 0.8 mg PO DAILY cap 02/01/20 06/21/20 06/27/20 16:00 History atorvastatin 40 mg tablet 40 mg PO DAILY #90 tab 04/20/20 06/21/20 06/27/20 16:00 Rx isosorbide mononitrate 30 mg PO BEDTIME 06/21/20 06/21/20 06/28/20 03:45 History nitroglycerin See Rx Instructions .ROUTE 06/28/20 06/29/20 06/24/20 History .COMPLEX PRN Allergies Allergy/AdvReac Type Severity Reaction Status Date / Time codeine Allergy ADR-Nausea Verified 06/21/20 07:44 ketoconazole Allergy ALGY-Rash Verified 06/21/20 07:44 Current Medications Current Medications Generic Name Dose Route Start Last Admin Trade Name Freq PRN Reason Stop Dose Admin Acetaminophen 650 mg 06/30/20 15:18 06/30/20 15:33 Tylenol PO 650 mg Q4H PRN Administration MILD PAIN OR INCREASE TEMP Amiodarone HCl 400 mg 06/30/20 07:15 06/30/20 17:22 Cordarone PO 400 mg BID KRIS Administration Aspirin 325 mg 06/29/20 09:00 06/30/20 08:33 Aspirin PO 325 mg DAILY KRIS Administration Atorvastatin Calcium 40 mg 06/29/20 21:00 06/30/20 20:42 Lipitor PO 40 mg BEDTIME KRIS Administration Chlorhexidine Gluconate 15 ml 06/28/20 18:00 06/30/20 19:03 Perigard MUCOUS MEM Not Given BID KRIS Fentanyl 50 mcg 06/28/20 14:18 06/29/20 09:18 Sublimaze IVP 50 mcg Q1H PRN Administration SEVERE PAIN Albumin Human 12.5 gm in 250 mls @ 600 mls/hr 06/28/20 14:18 06/28/20 20:55 Albumin IV Infused PRN PRN Infusion For CVP < 4 or SBP< 90 Nitroglycerin/Dextrose 50 mg in 250 mls @ 0 mls/hr 06/28/20 14:18 06/30/20 04:43 Nitroglycerin Drip IV 0 mcg/min .Q0M KRIS 0 mls/hr Titration Protocol Per Protocol Propofol 1,000 mg in 100 mls @ 0 mls/hr 06/28/20 14:18 06/29/20 19:18 Diprivan IV Infused .Q0M KRIS Titration Protocol Per Protocol Diltiazem HCl 125 mg/ Sodium 125 mls @ 0 mls/hr 06/30/20 18:00 06/30/20 20:34 Chloride IV 10 mg/hr .Q0M KRIS 10 mls/hr Titration Protocol Per Protocol Insulin Aspart 0 unit 06/30/20 08:00 06/30/20 20:42 Novolog SUBCUT 10 unit WM&BEDTIME KRIS Administration Protocol Labetalol HCl 10 mg 06/28/20 14:18 06/30/20 17:22 Trandate IVP 10 mg Q5M PRN Administration Systolic BP >140 mmHG Metoprolol Tartrate 100 mg 06/29/20 18:00 06/30/20 17:22 Lopressor PO 100 mg BID KRIS Administration Morphine Sulfate 2 mg 06/28/20 14:18 06/30/20 02:22 Morphine IVP 2 mg Q1H PRN Administration BREAKTHROUGH PAIN Nicotine 1 patch 06/29/20 09:00 06/30/20 08:33 Nicoderm 14 Mg Patch TRANSDERMA 1 patch DAILY KRIS Administration Ondansetron HCl 4 mg 06/28/20 14:18 06/29/20 09:11 Zofran IVP 4 mg Q6H PRN Administration NAUSEA Oxycodone/Acetaminophen 1 - 2 tab 06/28/20 14:18 06/30/20 21:10 Percocet 5-325 Mg PO 2 tab Q6H PRN Administration MILD TO MODERATE PAIN Tamsulosin HCl 0.8 mg 06/29/20 09:00 06/30/20 08:32 Flomax PO 0.8 mg DAILY KRIS Administration PFSH Acute PFSH: Medical History COPD (chronic obstructive pulmonary disease) Coronary artery disease Diabetes mellitus Fusion of lumbar spine Hard of hearing History of BPH Hyperlipidemia PVD (peripheral vascular disease) Skin cancer SOB (shortness of breath) Surgical History Arthrodesis status H/O cataract removal with insertion of prosthetic lens History of cholecystectomy History of lumbar fusion (~06/01/18) L4-5 laminectomy/fusion/fixation Hx of coronary angioplasty Hx of tonsillectomy Family History Father , AGE 84 CAD (coronary artery disease) Hypertension Diabetes Myocardial infarction Mother , AGE 83 Hypertension Diabetes Stroke Social History Smoking and tobacco status: former smoker Quit status (tobacco): has quit using tobacco Second hand smoke exposure: No Smoking risk assessment/counseling performed?: No Alcohol intake: current Alcohol intake frequency: 0-2 Drinks per Day Lives independently: Yes Marital status: Single Current occupational status: retired History of recent travel: No Vitals/I&O/Wt Last Vital Signs Temp 99.9 F H 06/30/20 21:00 Pulse 73 06/30/20 21:00 Resp 20 H 06/30/20 21:10 BP 122/71 06/30/20 21:00 Pulse Ox 99 06/30/20 21:10 06/30/20 06/30/20 06/30/20 06:59 14:59 22:59 Intake Total 261.2 / 4022.757 460 / 460 380.250 / 840.250 Output Total 515 / 1251 1450 / 1450 Balance -253.8 / 2771.757 460 / 460 -1069.750 / -609.750 Weight last 48 hrs Weight 233 lb 6.4 oz Weight 231 lb 11.2 oz Physical Exam Narrative: EXAM NARRATIVE: GENERAL: Patient is alert, awake and oriented x3. [] NECK: No jugular vein distension. [] HEENT: No cyanosis. No icterus. No pallor. [] HEART: Irregularly irregular, tachycardia. No murmur, rub or gallop. [] LUNGS: Clear to auscultate bilaterally. [] ABDOMEN: Soft, nontender and nondistended. Positive bowel sounds. No guarding, rebound or tenderness. [] CENTRAL NERVOUS SYSTEM: Grossly nonfocal. [] EXTREMITIES: Lower extremities with no edema bilaterally. Pulses palpable in the lower extremities, both dorsalis pedis and posterior tibial. [] Urinary Catheter Management^: Odom: Cath Placed During This Visit: yes Reason for Continuing Indwelling Catheter: Accurate Measurement of Urinary Output in Critically Ill Patients Urinary Catheter Date of Insertion: 06/28/20 Urinary Catheter Time of Insertion: 08:23 A&P Assessment and plan (1) Status post aorto-coronary artery bypass graft: Status: Acute (2) Hypertension: Status: Acute (3) Coronary artery disease: Status: Acute (4) Postoperative atrial fibrillation: Status: Acute Patient is recovering well from surgery. He has developed postop atrial fibrillation. Initially on amiodarone drip his rate was better controlled. However after switching to p.o. medications his rate again went up. Continue p.o. amiodarone 400 mg twice daily. Will recommend initiating Cardizem drip for rate control. If heart rates are not controlled with Cardizem can go back on IV amiodarone. Continue aspirin. Continue high intensity statin therapy. If postop atrial fibrillation persists, consider initiating anticoagulation Thank you for involving us with care of this patient. 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
[2020-07-01] VITALS (26 sets, daily range): BP systolic 127–154; BP diastolic 51–87; PULSE 70–103; RESP 15–25; TEMP 36.8–37.2; O2SAT 93–99
[2020-07-01 04:51] LABS: Basophils # 0.1 10^3/uL (0.0-0.1); Basophils % 0.6 %; Eosinophils # 0.2 10^3/uL (0.0-0.8); Eosinophils % 1.9 %; Hematocrit 26.4 % (42.0-52.0); Hemoglobin 8.8 g/dL (11.7-16.6); Lymphocytes # 1.3 10^3/uL (0.8-4.8); Lymphocytes % 11.7 %; Mean Corpuscular HGB Conc 33.3 g/dL (30.0-36.0); Mean Corpuscular Hemoglobin 30.4 pg (28.0-34.0); Mean Corpuscular Volume 91.3 fL (80-94); Mean Platelet Volume 9.9 fL (7.4-10.4); Monocytes # 1.3 10^3/uL (0.2-0.9); Monocytes % 11.7 %; Neutrophils % 73.5 %; Nucleated Red Blood Cells % 0 %; Platelet Count 116 10^3/cmm (130-400); Red Blood Count 2.89 10^6/uL (4.1-5.3); Red Cell Distribution Width 14.6 % (12.1-15.1); White Blood Count 10.9 10^3/uL (4.0-10.0)
[2020-07-01 05:15] LABS: Anion Gap 12.4 (5-19); Blood Urea Nitrogen 18 mg/dL (8-23); Calcium 8.8 mg/dL (8.5-10.5); Carbon Dioxide 25 mmol/L (22-29); Chloride 100 mmol/L (98-107); Glomerular Filtration Rate 74.3 mL/min (90-130); Glucose 194 mg/dL (65-115); Osmolality Calculated 283 mOsm/kg (285-295); Potassium 4.4 mmol/L (3.5-5.1); Sodium 133 mmol/L (136-145)
--- NOTE | 2020-07-01 06:00 | XRR_ITS ---
PROCEDURE INFORMATION: Exam: XR Chest, 1 View Exam date and time: 07/01/2020 4:49 AM Age: 69 years old Clinical indication: Condition or disease; Other: Sp cabg; Prior surgery; Surgery date: 3-7 days post-operative; Surgery type: Pod# 3 cabg; Additional info: Pod#3 S/P cabg: Diuresing TECHNIQUE: Imaging protocol: XR of the chest Views: 1 view. COMPARISON: CR XR chest 1V portable [id number] 06/30/2020 4:15 AM FINDINGS: Tubes, catheters and devices: EKG leads overlie the chest. Lungs: There are some strandy opacities present in the lung bases compatible with atelectasis. Pleural space: Unremarkable. No pleural effusion. No pneumothorax. Heart/Mediastinum: Unremarkable. No cardiomegaly. Bones/joints: Status post median sternotomy. XR/XR chest 1V portable [id number] IMPRESSION: Strandy opacities present in the lung bases likely representing atelectasis.
--- NOTE | 2020-07-01 06:59 | PC.NURSE ---
Shift Summary: Patient had one episode of reported pain to RN overnight. After admin of pain medications, patient was able to rest peacefully. Cardizem drip originally titrated down, and attempted to be turned off completely. However, after return of ST drip was turned back on. (See Mar Flowsheet.) Patient up to side of bed, and up to chair during overnight shift and had minimal reported pain levels during activity. 1350 u/o Cardizem 5mg Patient titrated off of O2 by NC, and remaining at mid 90's on Rm Air. Report and handoff given to oncoming dayshift RN.
[2020-07-01 07:20] LABS: Glucose Point of Care 266 mg/dL (70-110)
[2020-07-01] MEDS: metoprolol tartrate 50 mg Tablet 100 MG PO ×2 (08:21→17:35)
[2020-07-01] MEDS: tamsulosin 0.4 mg Capsule 0.8 MG PO (08:21)
[2020-07-01] MEDS: aspirin 325 mg Tablet PO (08:21)
[2020-07-01] MEDS: amiodarone 200 mg Tablet 400 MG PO ×2 (08:21→17:35)
[2020-07-01] MEDS: chlorhexidine gluconate 0.12% Btl 473 mL 15 ML MUCOUS MEM ×2 (08:22→17:36)
--- NOTE | 2020-07-01 09:37 | PM.PN ---
Subjective Subjective: Interval history: Greatly appreciate Dr. Cordon with expertise and oversight with Mr. Vargas and correction of his postop A. fib. He is now in sinus rhythm with a heart rate of 71 and looks quite good. Up in chair on rounds. Pulling 1250 on incentive spirometry. Intake and output is negative almost 1.5 L past 24 hours. Low platelet count is recovering. Chest x-ray looks good with clear lung bazan but some streak-like atelectasis in the right lower lobe. Wound VAC surgical dressing is in place. Minimal peripheral edema. Good, effective cough. Vitals/I&O/Wt Last Vital Signs Temp 98.3 F 07/01/20 08:00 Pulse 80 07/01/20 08:00 Resp 16 07/01/20 08:00 BP 154/66 07/01/20 08:00 Pulse Ox 95 07/01/20 08:00 06/30/20 07/01/20 07/01/20 22:59 06:59 14:59 Intake Total 519.166 / 979.166 252.5 / 1231.666 350 / 350 Output Total 1974 / 1974 825 / 2800 Balance -1455.834 / -995.834 -572.5 / -1568.334 350 / 350 Weight last 48 hrs Weight 233 lb 11.04 oz Weight 233 lb 6.4 oz Physical Exam Const: COMMON NORMALS: patient oriented x3 Chest: COMMONS NORMALS: normal inspection of the chest (Chest wall is stable. Wound VAC dressing in place.) Resp: COMMON NORMALS: normal respiratory effort, No retractions, No use of accessory muscles and clear to auscultation bilaterally EFFORT & INSPECTION: Yes able to speak in complete sentences and Yes symmetric chest movement AUSCULTATION: clear to auscultation bilaterally Cardio: COMMON NORMALS: regular rate, regular rhythm, S1 normal heart sound present, No gallops present (Cardio), No murmurs present (Cardio) and No rub (Cardio) RATE: regular rate RHYTHM: regular rhythm HEART SOUNDS: S1 normal heart sound present Extremity: COMMON NORMALS: no clubbing, cyanosis or edema Neuro: COMMON NORMALS: patient oriented x3, moves all extremities, no focal motor deficits and no sensory deficits noted Urinary Catheter Management^: Odom: Cath Placed During This Visit: yes Reason for Continuing Indwelling Catheter: Accurate Measurement of Urinary Output in Critically Ill Patients Urinary Catheter Date of Insertion: 06/28/20 Urinary Catheter Time of Insertion: 08:23 Data : 07/01/20 04:36 07/01/20 04:36 A&P Assessment and plan (1) Status post aorto-coronary artery bypass graft: Postop day #3 status post CABG x2. Postop A. fib now resolved. Greatly appreciate Dr. Cordon and his efforts. Plan: We will DC Odom catheter. We will transfer to intermediate care. I will plan to remove the wound VAC dressing tomorrow or Friday. Continue beta-blockade, aspirin, atorvastatin, p.o. amiodarone. Status: Acute Attestations Medical Necessity Statement*: Postop day #3 status post CABG Time Spent in Patient Care: 16 - 35 minutes Coding Level of Care Code Acute Ergonomics Engineer for Vivekg Fwd Diagnoses Status post aorto-coronary artery bypass graft Z95.1
--- NOTE | 2020-07-01 09:50 | PC.NURSE ---
Odom cath removed. 10ml of fluid removed from balloon. Cath removed intact. No discharged noted on catheter. Pt tolerated well.
[2020-07-01 11:41] LABS: Glucose Point of Care 241 mg/dL (70-110)
--- NOTE | 2020-07-01 13:12 | P.PN_ITS ---
Subjective Subjective: Interval history: Cardiology coverage patient status post coronary artery bypass surgery, day number of 3. He had a LOMAX to the LAD and a saphenous venous graft to the PDA branch of the right coronary artery. Denies any fever or chills. Has been having episodes of atria l fibrillation. Currently on amiodarone and beta-madisyn. As of now, he is in sinus rhythm, on telemetry. The vital signs remained stable. Medications: Reviewed: Yes Medication Review Details: Current Medications Acetaminophen (Tylenol) 650 mg PO Q4H PRN PRN Reason: MILD PAIN OR INCREASE TEMP Last Admin: 06/30/20 15:33 Dose: 650 mg Documented by: Amiodarone HCl (Cordarone) 400 mg PO BID [facility] Last Admin: 07/01/20 08:21 Dose: 400 mg Documented by: Aspirin (Aspirin) 325 mg PO DAILY [facility] Last Admin: 07/01/20 08:21 Dose: 325 mg Documented by: Atorvastatin Calcium (Lipitor) 40 mg PO BEDTIME [facility] Last Admin: 06/30/20 20:42 Dose: 40 mg Documented by: Chlorhexidine Gluconate (Perigard) 15 ml MUCOUS MEM BID [facility] Last Admin: 07/01/20 08:22 Dose: 15 ml Documented by: Dextrose (D50w) 25 ml IVP ONCE PRN; Protocol PRN Reason: hypoglycemia protocol Dextrose (D50w) 50 ml IVP PRN PRN; Protocol PRN Reason: hypoglycemia protocol Epinephrine (Vaponephrine) 0.5 ml INHALATION Q6H.RESPIRATORY PRN PRN Reason: Stridor Fentanyl (Sublimaze) 50 mcg IVP Q1H PRN PRN Reason: SEVERE PAIN Last Admin: 06/29/20 09:18 Dose: 50 mcg Documented by: Glucagon (Glucagen) 1 mg IM ONCE PRN; Protocol PRN Reason: Adult Acute Hypoglycemia Prot Hydralazine HCl (Apresoline) 5 mg IVP ONCE PRN PRN Reason: Systolic BP > 140 mmHg Amiodarone HCl 150 mg/Dextrose/ IV Miscellaneous Supplies 103 mls @ 412 mls/hr IV ONCE PRN PRN Reason: HEART Dobutamine HCl/Dextrose (Dobutamine Drip) 500 mg in 250 mls @ 0 mls/hr IV .Q0M PRN; Protocol PRN Reason: Cardiac Output Dopamine HCl/Dextrose (Intropin Drip) 400 mg in 250 mls @ 17.35 mls/hr IV CONT PRN; Protocol PRN Reason: Hypotension Albumin Human (Albumin) 12.5 gm in 250 mls @ 600 mls/hr IV PRN PRN PRN Reason: For CVP < 4 or SBP< 90 Last Infusion: 06/28/20 20:55 Dose: Infused Documented by: Dextrose (D5w) 500 mls @ 100 mls/hr IV ONCE PRN; Protocol PRN Reason: Adult Acute Hypoglycemia Prot Insulin Human Regular 250 unit (/ Sodium Chloride) 252.5 mls @ 0 mls/hr IV .Q0M [facility]; Protocol Norepinephrine Bitartrate 4 mg (/ Dextrose) 254 mls @ 10.583 mls/hr IV .Q24H PRN; Protocol PRN Reason: HYPOTENSION Phenylephrine HCl 25 mg/ (Sodium Chloride) 252.5 mls @ 0 mls/hr IV .Q0M PRN; Protocol PRN Reason: HYPOTENSION Nitroglycerin/Dextrose (Nitroglycerin Drip) 50 mg in 250 mls @ 0 mls/hr IV .Q0M [facility]; Protocol Last Titration: 06/30/20 04:43 Dose: 0 mcg/min, 0 mls/hr Documented by: Sodium Nitroprusside 50 mg/ (Dextrose) 252 mls @ 0 mls/hr IV .Q0M [facility]; Protocol Labetalol HCl 300 mg/ Sodium (Chloride) 300 mls @ 30 mls/hr IV .Q10H PRN; Protocol PRN Reason: Systolic BP > 140 mmHg Propofol (Diprivan) 1,000 mg in 100 mls @ 0 mls/hr IV .Q0M [facility]; Protocol Last Titration: 06/29/20 19:18 Dose: Infused Documented by: Influenza Virus Vaccine Quadrival (Fluarix Quad 2020-21 (6mos+)) 60 mcg IM .ONCE ONE Stop: 07/02/20 09:01 Insulin Aspart (Novolog) 0 unit SUBCUT WM&BEDTIME [facility]; Protocol Last Admin: 07/01/20 12:48 Dose: 8 unit Documented by: Labetalol HCl (Trandate) 10 mg IVP Q5M PRN PRN Reason: Systolic BP >140 mmHG Last Admin: 06/30/20 17:22 Dose: 10 mg Documented by: Metoprolol Tartrate (Lopressor) 100 mg PO BID [facility] Last Admin: 07/01/20 08:21 Dose: 100 mg Documented by: Midazolam HCl (Versed) 1 mg IVP Q1H PRN PRN Reason: Sedation for Mckinney score < 4. Morphine Sulfate (Morphine) 2 mg IVP Q1H PRN PRN Reason: BREAKTHROUGH PAIN Last Admin: 06/30/20 21:41 Dose: 2 mg Documented by: Naloxone HCl (Narcan) 0.1 mg IVP Q2M PRN PRN Reason: OPIATERV Nicotine (Nicoderm 14 Mg Patch) 1 patch TRANSDERMA DAILY [facility] Last Admin: 07/01/20 08:31 Dose: Not Given Documented by: Ondansetron HCl (Zofran) 4 mg IVP Q6H PRN PRN Reason: NAUSEA Last Admin: 06/29/20 09:11 Dose: 4 mg Documented by: Oxycodone/Acetaminophen (Percocet 5-325 Mg) 1 - 2 tab PO Q6H PRN PRN Reason: MILD TO MODERATE PAIN Last Admin: 06/30/20 21:10 Dose: 2 tab Documented by: Tamsulosin HCl (Flomax) 0.8 mg PO DAILY [facility] Last Admin: 07/01/20 08:21 Dose: 0.8 mg Documented by: Vitals/I&O/Wt Last Vital Signs Temp 98.3 F 07/01/20 08:00 Pulse 73 07/01/20 12:00 Resp 15 07/01/20 12:00 BP 131/87 07/01/20 12:00 Pulse Ox 96 07/01/20 11:00 06/30/20 07/01/20 07/01/20 22:59 06:59 14:59 Intake Total 519.166 / 979.166 252.5 / 1231.666 386.5 / 386.5 Output Total 1974 825 / 2800 Balance -1455.834 / -995.834 -572.5 / -1568.334 386.5 / 386.5 Weight last 48 hrs Weight 233 lb 11.04 oz Weight 233 lb 6.4 oz Physical Exam Narrative: EXAM NARRATIVE: GENERAL: The patient is alert and oriented times three. Not in any acute distress. HEENT: No significant pallor, icterus or lymphadenopathy.Oral cavity: There are no mucous membrane lesions. NECK: Trachea appears to be central. No masses noted. No JVD or thyromegaly appreciated. RESPIRATORY: The sternotomy site has no hematoma or bleeding. No sounds are heard bilaterally with no rales or rhonchi. Slightly diminished breath sounds in the bases. BREASTS: Deferred. HEART: The heart sounds are normal. No S3 or S4. Short systolic murmur in the left sternal border. No diastolic murmurs. No pericardial rub ABDOMEN: No vessel pulsations or distention. No tenderness. No organomegaly appreciated. Bowel sounds are normally heard. : Deferred. RECTAL: Deferred. LYMPHATIC: No lymphadenopathy noted in the neck or groin. EXTREMITIES: No edema or cyanosis. No clubbing. Peripheral pulses are palpated in fairly good volume and amplitude MUSCULOSKELETAL: No acute joint deformities or swelling SKIN: There are no significant rashes or ecchymosis NEUROPSYCHIATRIC: The patient is alert and oriented x3. Appears to be in a good mood. No tremors or rigidity noted. Urinary Catheter Management^: Odom: Cath Placed During This Visit: yes, but has since been removed by the nurse Reason for Continuing Indwelling Catheter: Accurate Measurement of Urinary Output in Critically Ill Patients Urinary Catheter Date of Insertion: 06/28/20 Urinary Catheter Time of Insertion: 08:23 Date Urinary Catheter Removed: 07/01/20 Time Urinary Catheter Discontinued: 09:40 Data : 07/01/20 04:36 07/01/20 04:36 Other Labs: Laboratory Last Values WBC 10.9 10^3/uL (4.0-10.0) H 07/01/20 04:36 RBC 2.89 10^6/uL (4.1-5.3) L 07/01/20 04:36 Hgb 8.8 g/dL (11.7-16.6) L 07/01/20 04:36 Hct 26.4 % (42.0-52.0) L 07/01/20 04:36 MCV 91.3 fL (80-94) 07/01/20 04:36 MCH 30.4 pg (28.0-34.0) 07/01/20 04:36 MCHC 33.3 g/dL (30.0-36.0) 07/01/20 04:36 RDW 14.6 % (12.1-15.1) 07/01/20 04:36 Plt Count 116 10^3/cmm (130-400) L 07/01/20 04:36 MPV 9.9 fL (7.4-10.4) 07/01/20 04:36 Neut % (Auto) 73.5 % 07/01/20 04:36 Lymph % (Auto) 11.7 % 07/01/20 04:36 [place] % (Auto) 11.7 % 07/01/20 04:36 Eos % (Auto) 1.9 % 07/01/20 04:36 Baso % (Auto) 0.6 % 07/01/20 04:36 Neut # (Auto) 8.00 10^3/uL (1.8-7.7) H 07/01/20 04:36 Lymph # (Auto) 1.3 10^3/uL (0.8-4.8) 07/01/20 04:36 [place] # (Auto) 1.3 10^3/uL (0.2-0.9) H 07/01/20 04:36 Eos # (Auto) 0.2 10^3/uL (0.0-0.8) 07/01/20 04:36 Baso # (Auto) 0.1 10^3/uL (0.0-0.1) 07/01/20 04:36 Nucleated RBC % (auto) 0 % 07/01/20 04:36 Nucleated RBCs # 0.0 /100WBC 07/01/20 04:36 PT 15.00 SECONDS (12.1-14.9) H 06/29/20 03:35 INR 1.15 (0.8-1.2) 06/29/20 03:35 APTT 39.5 SECONDS (23.9-36.7) H 06/29/20 03:35 Specimen Type Arterial 06/29/20 03:24 Sample Site Arterial line 06/29/20 03:24 ABG pH 7.41 (7.35-7.45) 06/29/20 03:24 ABG pCO2 37.2 mmHg (35-45) 06/29/20 03:24 ABG pO2 81.6 mmHg (80.0-100.0) 06/29/20 03:24 ABG HCO3 23.6 mmol/L (22-26) 06/29/20 03:24 ABG O2 Saturation 97.9 06/29/20 03:24 ABG Base Excess -0.8 mmol/L (-2.0-2.0) 06/29/20 03:24 Mt Test N/a 06/29/20 03:24 A-a O2 Gradient 9.1 mmHg (5-10) 06/29/20 03:24 Hematocrit 31.0 % (42-52) L 06/29/20 03:24 Hgb O2 Saturation 95.8 % (95-100) 06/29/20 03:24 Carboxyhemoglobin 1.5 %THgb (0.4-20.1) 06/29/20 03:24 Methemoglobin 0.6 % (0.4-1.5) 06/29/20 03:24 Total Hemoglobin 10.1 g/dL (14-18) L 06/29/20 03:24 Sodium 141.0 mmol/L (131-143) 06/29/20 03:24 Potassium 4.1 mmol/L (3.5-5.0) 06/29/20 03:24 Glucose 115.0 mg/dL (70-115) 06/29/20 03:24 Ionized Calcium 1.0 mmol/L (1.1-1.4) L 06/29/20 03:24 O2 Delivery Device Vent 06/29/20 03:24 SIMV 10.0 06/29/20 03:24 FiO2 28.0 % 06/29/20 03:24 Tidal Volume 0.60 06/29/20 03:24 PEEP 5.0 cmH20 06/29/20 03:24 Insemination Worker ID Harkr 06/29/20 03:24 Sodium 133 mmol/L (136-145) L 07/01/20 04:36 Potassium 4.4 mmol/L (3.5-5.1) 07/01/20 04:36 Chloride 100 mmol/L (98-107) 07/01/20 04:36 Carbon Dioxide 25 mmol/L (22-29) 07/01/20 04:36 Anion Gap 12.4 (5-19) 07/01/20 04:36 BUN 18 mg/dL (8-23) 07/01/20 04:36 Creatinine 1.0 mg/dL (0.7-1.2) 07/01/20 04:36 GFR Calculation 74.3 mL/min (90-130) L 07/01/20 04:36 Glucose 194 mg/dL (65-115) H 07/01/20 04:36 POC Glucose 241 mg/dL (70-110) 07/01/20 11:33 Fasting Glucose Cancelled 06/29/20 03:35 Calculated Osmolality 283 mOsm/kg (285-295) L 07/01/20 04:36 Calcium 8.8 mg/dL (8.5-10.5) 07/01/20 04:36 Magnesium 2.2 mg/dL (1.7-2.3) 06/29/20 03:35 Total Bilirubin 0.7 mg/dL (0.15-1.2) 06/21/20 08:28 Direct Bilirubin 0.30 mg/dL (0.00-0.30) 06/21/20 08:28 AST 28 U/L (0-40) 06/21/20 08:28 ALT 25 U/L (0-41) 06/21/20 08:28 Alkaline Phosphatase 54 IU/L (40-130) 06/21/20 08:28 Total Protein 7.1 g/dL (6.6-8.7) 06/21/20 08:28 Albumin 4.4 g/dL (3.5-5.2) 06/21/20 08:28 Globulin 2.7 g/dL (1.3-4.6) 06/21/20 08:28 TSH 1.84 uIU/mL (0.27-4.20) 06/21/20 08:28 Free T4 1.27 ng/dL (0.82-1.77) 06/21/20 08:28 Urine Color Yellow (Yellow) 06/21/20 08:20 Urine Appearance Clear (CLEAR) 06/21/20 08:20 Urine pH 6.5 (5-7) 06/21/20 08:20 Ur Specific [place] 1.010 (1.005-1.030) 06/21/20 08:20 Urine Protein Neg (Negative) 06/21/20 08:20 Urine Glucose (UA) Norm (Normal) 06/21/20 08:20 Urine Ketones Negative (Negative) 06/21/20 08:20 Urine Blood Neg (Negative) 06/21/20 08:20 Urine Nitrate Negative (Negative) 06/21/20 08:20 Urine Bilirubin Neg (Negative) 06/21/20 08:20 Urine Urobilinogen Norm mg/dL (Negative) 06/21/20 08:20 Ur Leukocyte Esterase Trace (Negative) H 06/21/20 08:20 Urine RBC None /hpf (0-2) 06/21/20 08:20 Urine WBC Rare /hpf (0-5) 06/21/20 08:20 Ur Squamous Epith Cells 0-4 /hpf (0-5) H 06/21/20 08:20 Amorphous Sediment Not Reportable 06/21/20 08:20 Urine Bacteria 1+ /hpf (NONE) H 06/21/20 08:20 Urine Yeast Trace /hpf 06/21/20 08:20 SARS-CoV-2 RNA (RT-PCR) Cancelled 06/21/20 10:56 Blood Type A Positive 06/21/20 08:28 Rho(D) Type Positive 06/21/20 08:28 Antibody Screen Negative 06/21/20 08:28 Crossmatch See Detail 06/21/20 08:28 A&P Assessment and plan (1) Status post aorto-coronary artery bypass graft: Medically seems to be stable. May continue on the current medications. Status: Acute (2) PVD (peripheral vascular disease): Currently has no specific symptoms. May continue on the current medications. Status: Acute (3) Hyperlipidemia: Continue on the statin drug. Status: Acute (4) Hypertension: Currently normotensive. Status: Acute (5) Postoperative atrial fibrillation: Status: Acute Attestations Medical Necessity Statement*: Patient requires continued hospital stay for close monitoring and further management Coding Level of Care Code Acute Lead Driver for Chg Fwd Diagnoses Status post aorto-coronary artery bypass graft Z95.1 PVD (peripheral vascular disease) I73.9 Hyperlipidemia E78.5 Hypertension I10 Postoperative atrial fibrillation I97.89; I48.91
--- NOTE | 2020-07-01 16:20 | DCPLANNER ---
Pg 2 of IM presented and explained to pt. He thinks this is a result of him announcing that he didn't want to be d/c'd until he felt better. Audio Production Engineer assures him that we want him to feel better also and each and every medicare card patel is provided with this opportunity. He signs, copy to the chart.
[2020-07-01 17:07] LABS: Glucose Point of Care 237 mg/dL (70-110)
[2020-07-01] MEDS: oxyCODONE-APAP 5-325 mg Tablet PO ×2 (17:33→22:34)
[2020-07-01] MEDS: enoxaparin 40 mg/0.4 mL Syringe SUBCUT (17:34)
[2020-07-01] MEDS: atorvastatin 40 mg Tablet PO (17:35)
[2020-07-01 17:55] LABS: Blood Gas Sample Type Arterial
[2020-07-01 17:56] LABS: ABG PCO2 39.3 mmHg (35-45); Base Excess ABG -0.3 mmol/L (-2.0-2.0); HCO3 ABG 24.4 mmol/L (22-26)
[2020-07-01 17:57] LABS: Arterial Blood Gas Hematocrit 26.9 % (42-52); Blood Gas Sample Type Arterial; Potassium Level - ABG 5.2 mmol/L (3.5-5.0)
[2020-07-01 17:58] LABS: Carboxyhemoglobin 3.6 %THgb (0.4-20.1); HGB O2 Sat 96.7 % (95-100); Methemoglobin 0.7 % (0.4-1.5); Total Hemoglobin 8.8 g/dL (14-18)
--- NOTE | 2020-07-01 18:49 | PC.NURSE ---
Shift summary: Pt alert an oriented. He is hard of hearing. He is able to get out of bed with minimal assistance. Pt holds pillow to cough. Pt uses IS, 1250 noted. Blood sugars have been 240-270's today. Sinus rhythm throughout the day. Cardizem gtt stopped around 0930 this am. Odom removed. Pt able to use urinal standing up without difficulty. Dr Chacon wrote transfer orders to [facility], pt remains in ICU until appropriate bed available.
[2020-07-01 20:53] LABS: Glucose Point of Care 216 mg/dL (70-110)
[2020-07-01] MEDS: morphine 4 mg/mL SDV 1 mL 2 MG IVP (23:51)
[2020-07-02] VITALS (13 sets, daily range): BP systolic 121–152; BP diastolic 50–85; PULSE 68–125; RESP 15–25; TEMP 36.4–36.9; O2SAT 95–100; BMI 30.7
[2020-07-02 07:13] LABS: Glucose Point of Care 224 mg/dL (70-110)
[2020-07-02] MEDS: amiodarone 200 mg Tablet 400 MG PO ×2 (07:55→17:42)
[2020-07-02] MEDS: aspirin 325 mg Tablet PO (07:57)
[2020-07-02] MEDS: tamsulosin 0.4 mg Capsule 0.8 MG PO (07:57)
[2020-07-02] MEDS: atorvastatin 40 mg Tablet PO (07:57)
--- NOTE | 2020-07-02 09:47 | P.PN_ITS ---
Subjective Subjective: Interval history: Patient had another episode of atrial fibrillation with rapid ventricular rate this morning. Spontaneously converted to sinus rhythm. Denies any chest pain or shortness of breath. No fever or chills. No cough. No other specific complaints. His sternal wound VAC was removed this morning Medications: Reviewed: Yes Medication Review Details: Current Medications Amiodarone HCl (Cordarone) 400 mg PO BID [facility] Last Admin: 07/01/20 17:35 Dose: 400 mg Documented by: Aspirin (Aspirin) 325 mg PO DAILY [facility] Last Admin: 07/01/20 08:21 Dose: 325 mg Documented by: Atorvastatin Calcium (Lipitor) 40 mg PO DAILY [facility] Last Admin: 07/01/20 17:35 Dose: 40 mg Documented by: Chlorhexidine Gluconate (Perigard) 15 ml MUCOUS MEM BID [facility] Last Admin: 07/01/20 17:36 Dose: 15 ml Documented by: Dextrose (D50w) 25 ml IVP ONCE PRN; Protocol PRN Reason: hypoglycemia protocol Dextrose (D50w) 50 ml IVP PRN PRN; Protocol PRN Reason: hypoglycemia protocol Enoxaparin Sodium (Lovenox) 40 mg SUBCUT Q24H [facility] Last Admin: 07/01/20 17:34 Dose: 40 mg Documented by: Glucagon (Glucagen) 1 mg IM ONCE PRN; Protocol PRN Reason: Adult Acute Hypoglycemia Prot Insulin Human Regular 250 unit (/ Sodium Chloride) 252.5 mls @ 0 mls/hr IV .Q0M [facility]; Protocol Insulin Aspart (Novolog) 0 unit SUBCUT WM&BEDTIME [facility]; Protocol Last Admin: 07/01/20 20:59 Dose: 6 unit Documented by: Metoprolol Tartrate (Lopressor) 100 mg PO BID [facility] Last Admin: 07/01/20 17:35 Dose: 100 mg Documented by: Morphine Sulfate (Morphine) 2 mg IVP Q1H PRN PRN Reason: BREAKTHROUGH PAIN Last Admin: 07/01/20 23:51 Dose: 2 mg Documented by: Naloxone HCl (Narcan) 0.1 mg IVP Q2M PRN PRN Reason: OPIATERV Nicotine (Nicoderm 14 Mg Patch) 1 patch TRANSDERMA DAILY [facility] Last Admin: 07/01/20 08:31 Dose: Not Given Documented by: Nitroglycerin (Nitrostat) 0.4 mg SUBLINGUAL Q5MIN PRN PRN Reason: Chest Pain Ondansetron HCl (Zofran) 4 mg IVP Q6H PRN PRN Reason: NAUSEA Last Admin: 06/29/20 09:11 Dose: 4 mg Documented by: Oxycodone/Acetaminophen (Percocet 5-325 Mg) 1 - 2 tab PO Q6H PRN PRN Reason: MILD TO MODERATE PAIN Last Admin: 07/01/20 22:34 Dose: 1 tab Documented by: Tamsulosin HCl (Flomax) 0.8 mg PO DAILY [facility] Last Admin: 07/01/20 08:21 Dose: 0.8 mg Documented by: Vitals/I&O/Wt Last Vital Signs Temp 97.6 F 07/02/20 07:23 Pulse 69 07/02/20 04:00 Resp 18 07/02/20 04:00 BP 139/70 07/02/20 04:00 Pulse Ox 95 07/02/20 04:00 07/01/20 07/02/20 07/02/20 22:59 06:59 14:59 Intake Total 500 / 1236.5 300 / 1536.5 Output Total 800 / 1500 375 / 1875 Balance -300 / -263.5 -75 / -338.5 Weight last 48 hrs Weight 220 lb 3 oz Weight 233 lb 11.04 oz Physical Exam Narrative: EXAM NARRATIVE: GENERAL: The patient is alert and oriented times three. Not in any acute distress. HEENT: No significant pallor, icterus or lymphadenopathy.Oral cavity: There are no mucous membrane lesions. NECK: Trachea appears to be central. No masses noted. No JVD or thyromegaly appreciated. RESPIRATORY: The sternotomy site has no hematoma or bleeding. No sounds are heard bilaterally with no rales or rhonchi. Slightly diminished breath sounds in the bases. BREASTS: Deferred. HEART: The heart sounds are normal. No S3 or S4. Short systolic murmur in the left sternal border. No diastolic murmurs. No pericardial rub ABDOMEN: No vessel pulsations or distention. No tenderness. No organomegaly appreciated. Bowel sounds are normally heard. : Deferred. RECTAL: Deferred. LYMPHATIC: No lymphadenopathy noted in the neck or groin. EXTREMITIES: No edema or cyanosis. No clubbing. Peripheral pulses are palpated in fairly good volume and amplitude MUSCULOSKELETAL: No acute joint deformities or swelling SKIN: There are no significant rashes or ecchymosis NEUROPSYCHIATRIC: The patient is alert and oriented x3. Appears to be in a good mood. No tremors or rigidity noted. Urinary Catheter Management^: Odom: Cath Placed During This Visit: yes, but has since been removed by the nurse Reason for Continuing Indwelling Catheter: Accurate Measurement of Urinary Output in Critically Ill Patients Urinary Catheter Date of Insertion: 06/28/20 Urinary Catheter Time of Insertion: 08:23 Date Urinary Catheter Removed: 07/01/20 Time Urinary Catheter Discontinued: 09:40 Data : 07/01/20 04:36 07/01/20 04:36 Other Labs: Laboratory Last Values WBC 10.9 10^3/uL (4.0-10.0) H 07/01/20 04:36 RBC 2.89 10^6/uL (4.1-5.3) L 07/01/20 04:36 Hgb 8.8 g/dL (11.7-16.6) L 07/01/20 04:36 Hct 26.4 % (42.0-52.0) L 07/01/20 04:36 MCV 91.3 fL (80-94) 07/01/20 04:36 MCH 30.4 pg (28.0-34.0) 07/01/20 04:36 MCHC 33.3 g/dL (30.0-36.0) 07/01/20 04:36 RDW 14.6 % (12.1-15.1) 07/01/20 04:36 Plt Count 116 10^3/cmm (130-400) L 07/01/20 04:36 MPV 9.9 fL (7.4-10.4) 07/01/20 04:36 Neut % (Auto) 73.5 % 07/01/20 04:36 Lymph % (Auto) 11.7 % 07/01/20 04:36 [place] % (Auto) 11.7 % 07/01/20 04:36 Eos % (Auto) 1.9 % 07/01/20 04:36 Baso % (Auto) 0.6 % 07/01/20 04:36 Neut # (Auto) 8.00 10^3/uL (1.8-7.7) H 07/01/20 04:36 Lymph # (Auto) 1.3 10^3/uL (0.8-4.8) 07/01/20 04:36 [place] # (Auto) 1.3 10^3/uL (0.2-0.9) H 07/01/20 04:36 Eos # (Auto) 0.2 10^3/uL (0.0-0.8) 07/01/20 04:36 Baso # (Auto) 0.1 10^3/uL (0.0-0.1) 07/01/20 04:36 Nucleated RBC % (auto) 0 % 07/01/20 04:36 Nucleated RBCs # 0.0 /100WBC 07/01/20 04:36 PT 15.00 SECONDS (12.1-14.9) H 06/29/20 03:35 INR 1.15 (0.8-1.2) 06/29/20 03:35 APTT 39.5 SECONDS (23.9-36.7) H 06/29/20 03:35 Specimen Type Arterial 06/29/20 03:24 Sample Site Arterial line 06/29/20 03:24 ABG pH 7.41 (7.35-7.45) 06/29/20 03:24 ABG pCO2 37.2 mmHg (35-45) 06/29/20 03:24 ABG pO2 81.6 mmHg (80.0-100.0) 06/29/20 03:24 ABG HCO3 23.6 mmol/L (22-26) 06/29/20 03:24 ABG O2 Saturation 97.9 06/29/20 03:24 ABG Base Excess -0.8 mmol/L (-2.0-2.0) 06/29/20 03:24 Mt Test N/a 06/29/20 03:24 A-a O2 Gradient 9.1 mmHg (5-10) 06/29/20 03:24 Hematocrit 31.0 % (42-52) L 06/29/20 03:24 Hgb O2 Saturation 95.8 % (95-100) 06/29/20 03:24 Carboxyhemoglobin 1.5 %THgb (0.4-20.1) 06/29/20 03:24 Methemoglobin 0.6 % (0.4-1.5) 06/29/20 03:24 Total Hemoglobin 10.1 g/dL (14-18) L 06/29/20 03:24 Sodium 141.0 mmol/L (131-143) 06/29/20 03:24 Potassium 4.1 mmol/L (3.5-5.0) 06/29/20 03:24 Glucose 115.0 mg/dL (70-115) 06/29/20 03:24 Ionized Calcium 1.0 mmol/L (1.1-1.4) L 06/29/20 03:24 O2 Delivery Device Vent 06/29/20 03:24 SIMV 10.0 06/29/20 03:24 FiO2 28.0 % 06/29/20 03:24 Tidal Volume 0.60 06/29/20 03:24 PEEP 5.0 cmH20 06/29/20 03:24 Asphalt Coater ID Harkr 06/29/20 03:24 Sodium 133 mmol/L (136-145) L 07/01/20 04:36 Potassium 4.4 mmol/L (3.5-5.1) 07/01/20 04:36 Chloride 100 mmol/L (98-107) 07/01/20 04:36 Carbon Dioxide 25 mmol/L (22-29) 07/01/20 04:36 Anion Gap 12.4 (5-19) 07/01/20 04:36 BUN 18 mg/dL (8-23) 07/01/20 04:36 Creatinine 1.0 mg/dL (0.7-1.2) 07/01/20 04:36 GFR Calculation 74.3 mL/min (90-130) L 07/01/20 04:36 Glucose 194 mg/dL (65-115) H 07/01/20 04:36 POC Glucose 224 mg/dL (70-110) 07/02/20 07:07 Fasting Glucose Cancelled 06/29/20 03:35 Calculated Osmolality 283 mOsm/kg (285-295) L 07/01/20 04:36 Calcium 8.8 mg/dL (8.5-10.5) 07/01/20 04:36 Magnesium 2.2 mg/dL (1.7-2.3) 06/29/20 03:35 Total Bilirubin 0.7 mg/dL (0.15-1.2) 06/21/20 08:28 Direct Bilirubin 0.30 mg/dL (0.00-0.30) 06/21/20 08:28 AST 28 U/L (0-40) 06/21/20 08:28 ALT 25 U/L (0-41) 06/21/20 08:28 Alkaline Phosphatase 54 IU/L (40-130) 06/21/20 08:28 Total Protein 7.1 g/dL (6.6-8.7) 06/21/20 08:28 Albumin 4.4 g/dL (3.5-5.2) 06/21/20 08:28 Globulin 2.7 g/dL (1.3-4.6) 06/21/20 08: TSH 1.84 uIU/mL (0.27-4.20) 06/21/20 08: Free T4 1.27 ng/dL (0.82-1.77) 06/21/20 08:28 Urine Color Yellow (Yellow) 06/21/20 08:20 Urine Appearance Clear (CLEAR) 06/21/20 08:20 Urine pH 6.5 (5-7) 06/21/20 08:20 Ur Specific [place] 1.010 (1.005-1.030) 06/21/20 08:20 Urine Protein Neg (Negative) 06/21/20 08:20 Urine Glucose (UA) Norm (Normal) 06/21/20 08:20 Urine Ketones Negative (Negative) 06/21/20 08:20 Urine Blood Neg (Negative) 06/21/20 08:20 Urine Nitrate Negative (Negative) 06/21/20 08:20 Urine Bilirubin Neg (Negative) 06/21/20 08:20 Urine Urobilinogen Norm mg/dL (Negative) 06/21/20 08:20 Ur Leukocyte Esterase Trace (Negative) H 06/21/20 08:20 Urine RBC None /hpf (0-2) 06/21/20 08:20 Urine WBC Rare /hpf (0-5) 06/21/20 08:20 Ur Squamous Epith Cells 0-4 /hpf (0-5) H 06/21/20 08:20 Amorphous Sediment Not Reportable 06/21/20 08:20 Urine Bacteria 1+ /hpf (NONE) H 06/21/20 08:20 Urine Yeast Trace /hpf 06/21/20 08:20 SARS-CoV-2 RNA (RT-PCR) Cancelled 06/21/20 10:56 Blood Type A Positive 06/21/20 08:28 Rho(D) Type Positive 06/21/20 08:28 Antibody Screen Negative 06/21/20 08:28 Crossmatch See Detail 06/21/20 08:28 A&P Assessment and plan (1) Status post aorto-coronary artery bypass graft: Cardiovascular status seems to be stable. May continue the current medications. Status: Acute (2) Postoperative atrial fibrillation: May continue on the beta-madisyn and the amiodarone. Status: Acute (3) PVD (peripheral vascular disease): Continue on the current treatment measures. Status: Acute (4) Hyperlipidemia: Patient is on a statin. Continue the current medications. Status: Acute (5) Diabetes mellitus: We will continue with aggressive measures to control the blood sugar. Status: Acute (6) Hypertension: May continue on the current medications. Status: Acute Attestations Medical Necessity Statement*: Patient requires continued hospital stay for close monitoring and further management Coding Level of Care Code Acute [facility] [place] Fwd Medical Decision Making Moderate Complexity Diagnoses Status post aorto-coronary artery bypass graft Z95.1 Postoperative atrial fibrillation I97.89; I48.91 PVD (peripheral vascular disease) I73.9 Hyperlipidemia E78.5 Diabetes mellitus E11.9 Hypertension I10 Time Spent (min) 35
--- NOTE | 2020-07-02 10:38 | P.PN_ITS ---
Subjective Subjective: Interval history: Postop day #4 status post CABG x2. Heart rate 123 this morning. I requested an EKG. Asymptomatic. Wound VAC dressing removed. Incision clean and dry. New dressing applied. Complains of right ear discomfort. Vitals/I&O/Wt Last Vital Signs Temp 97.6 F 07/02/20 07:23 Pulse 116 H 07/02/20 08:00 Resp 16 07/02/20 08:00 BP 139/85 07/02/20 08:00 Pulse Ox 97 07/02/20 08:00 07/01/20 07/02/20 07/02/20 22:59 06:59 14:59 Intake Total 500 / 1236.5 300 / 1536.5 Output Total 800 / 1500 375 / 1875 150 / 150 Balance -300 / -263.5 -75 / -338.5 -150 / -150 Weight last 48 hrs Weight 220 lb 3 oz Weight 233 lb 11.04 oz Physical Exam HENMT: COMMON NORMALS: normocephalic and atraumatic HEAD & SCALP: normocephalic and atraumatic GENERAL EAR: hearing grossly impaired TYMPANIC MEMBRANE: TM abnormal TM laterality: right Details: erythematous and retracted Chest: COMMONS NORMALS: normal inspection of the chest (Sternotomy incision clean and dry. Sternum stable palpation. Drain sites well approximated. New dressing applied.) CHEST: Yes Symmetrical chest wall rise Resp: COMMON NORMALS: normal respiratory effort and clear to auscultation bilaterally AUSCULTATION: clear to auscultation bilaterally Cardio: COMMON NORMALS: S1 normal heart sound present; negative for regular rate RATE: abnormal rate and tachycardic HEART SOUNDS: S1 normal heart sound present BRUITS: no abdominal aortic bruits and no carotid bruits Extremity: COMMON NORMALS: no clubbing, cyanosis or edema Urinary Catheter Management^: Odom: Cath Placed During This Visit: yes, but has since been removed by the nurse Reason for Continuing Indwelling Catheter: Accurate Measurement of Urinary Output in Critically Ill Patients Urinary Catheter Date of Insertion: 06/28/20 Urinary Catheter Time of Insertion: 08:23 Date Urinary Catheter Removed: 07/01/20 Time Urinary Catheter Discontinued: 09:40 Data : 07/01/20 04:36 07/01/20 04:36 A&P Assessment and plan (1) Status post aorto-coronary artery bypass graft: Postop day #4 status post CABG x2. Tachycardia with recent postop A. fib. Awaiting EKG. Retraction and mild erythema of the right tympanic membrane with history of recurrent ear infections Plan: Will await results of EKG. Amoxicillin Status: Acute Attestations Medical Necessity Statement*: Postop day #4 status post CABG. Postop arrhythmias. Time Spent in Patient Care: Greater than 35 minutes Coding Level of Care Code Acute Natural Gas Technician for Chg Fwd Diagnoses Status post aorto-coronary artery bypass graft Z95.1
--- NOTE | 2020-07-02 10:40 | ECG_ITS ---
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 Measurements Intervals Hustler Rate: 125 P: VT: -1 QRS: 31 QRSD: 107 T: 86 QT: 330 QTc: 476 Interpretive Statements ATRIAL FLUTTER/TACHYCARDIA WITH RAPID VENTRICULAR RESPONSE INCOMPLETE RIGHT BUNDLE BRANCH BLOCK [90+ ms QRS DURATION, TERMINAL R IN V1/V2, 40+ ms S IN I/aVL/V4/V5/V6] ST DEPRESSION, CONSIDER SUBENDOCARDIAL INJURY [0.1+ mV ST DEPRESSION] Compared to ECG 06/30/2020 17:42:28 Incomplete right bundle-branch block now present ST (T wave) deviation now present Atrial fibrillation no longer present T-wave abnormality no longer present Possible ischemia no longer present Electronically Signed On 07-02-2020 19:49:29 CDT by Ranjan Adams M.D. [id number]
--- NOTE | 2020-07-02 10:40 | PC.OT ---
OT tx attempted at this time. Nursing requests holding tx as pt heart rate has increased and he is awaiting EKG. Therapist to attempt again later today if possible.
[2020-07-02] MEDS: chlorhexidine gluconate 0.12% Btl 473 mL 15 ML MUCOUS MEM ×2 (10:48→17:43)
[2020-07-02] MEDS: metoprolol tartrate 50 mg Tablet 100 MG PO ×2 (10:49→17:42)
[2020-07-02] MEDS: metoprolol tartrate 1 mg/1 mL SDV 5 mL 5 MG IV (10:59)
[2020-07-02] MEDS: nicotine 14 mg Patch 1 PATCH TRANSDERMA (11:07)
--- NOTE | 2020-07-02 11:10 | PC.NURSE ---
1030: Dr Chacon here removed wound vac. changed chest dressings. Pt back on monitor, fast heart rate noted 125bpm. EKG ordered and done. a flutter. 1040: Dr Adams notified of rapid heart rate, aflutter, as directed by Dr Chacon. Metorpolol 5 mg IV to be given. If in 30minutes heart rhythm and rate not improved start cardizem gtt. 1104: As metroprolo1 IV was being given heat latoya changed back to sinus rhythm. 1110: heart rhythm remains sinus rhyth. B/P stable. Catizem gtt not indicated at this time.
--- NOTE | 2020-07-02 12:50 | PC.NURSE ---
Pt is very motivated. He can get out of bed by himself. He has been ambulated 3 times so far today., for a total of 6 laps around nurses station.
[2020-07-02] MEDS: enoxaparin 40 mg/0.4 mL Syringe SUBCUT (15:28)
[2020-07-02] MEDS: amoxicillin 500 mg Capsule PO ×2 (15:28→20:17)
[2020-07-02 17:22] LABS: Glucose Point of Care 197 mg/dL (70-110)
[2020-07-02 17:22] LABS: Glucose Point of Care 311 mg/dL (70-110)
[2020-07-02] MEDS: docusate sodium 100 mg Capsule PO (18:31)
--- NOTE | 2020-07-02 19:12 | PC.NURSE ---
All care and charting done by Erica Valerio, student nurse ( also INTERLACER) directly supervised by this nurse.
--- NOTE | 2020-07-02 19:13 | PC.NURSE ---
Shift summary: Pt is a very motivated individual. He actively uses IS, ambulates several times today. He has sat up in chair most of the day. Dr Chcaon remove Wound vac today and applied an Island dressing. He had an elevated heart rate this am, P.O metoprolol and amiodarone administered before 0800/ Heart rate did go back to sinus in the 80's. After dressing change his heart rate elevated again, metoprolol 5mg IV given his heart rate immediately went back to sinus in the 60 s. Pt tolerated all of this well. Dr Adams, this afternoon, ordered a PRN dose of metoprolol for an sustained heart rate above 120. Cardiac comfort medS ordered by Dr Chacon. Pt has not had a bowel movement this admission. Laxatives started, see NOV.
[2020-07-02 23:19] LABS: Glucose Point of Care 217 mg/dL (70-110)
[2020-07-03] VITALS (19 sets, daily range): BP systolic 103–177; BP diastolic 61–86; PULSE 59–129; RESP 15–25; TEMP 36.3–37.2; O2SAT 95–100
[2020-07-03] MEDS: diphenhydrAMINE 25 mg Capsule PO ×2 (00:34→01:55)
[2020-07-03] MEDS: bisacodyl 5 mg Tablet PO (05:34)
[2020-07-03] MEDS: lactulose oral liq 20 gm/30 mL UDC PO (05:47)
--- NOTE | 2020-07-03 05:56 | P.PN_ITS ---
Subjective Subjective: Interval history: Postop day #5 status post CABG x2. Ambulating in ICU on rounds. No complaints. He is converted back to sinus rhythm with a heart rate of 83. Positive flatus though no bowel movement. Vitals/I&O/Wt Last Vital Signs Temp 97.6 F 07/02/20 20:00 Pulse 83 07/03/20 04:00 Resp 19 H 07/03/20 04:00 BP 126/73 07/03/20 04:00 Pulse Ox 95 07/03/20 04:00 07/02/20 07/02/20 07/03/20 14:59 22:59 06:59 Intake Total 350 / 350 800 / 1150 530 / 1680 Output Total 500 / 500 600 / 1100 1050 / 2150 Balance -150 / -150 200 / 50 -520 / -470 Weight last 48 hrs Weight 220 lb 3 oz Weight 233 lb 11.04 oz Physical Exam Resp: COMMON NORMALS: normal respiratory effort, No use of accessory muscles and clear to auscultation bilaterally AUSCULTATION: clear to auscultation bilaterally Cardio: COMMON NORMALS: regular rate, regular rhythm, S1 normal heart sound present, No gallops present (Cardio), No murmurs present (Cardio) and No rub (Cardio) RATE: regular rate RHYTHM: regular rhythm HEART SOUNDS: S1 normal heart sound present Extremity: COMMON NORMALS: no clubbing, cyanosis or edema Urinary Catheter Management^: Odom: Cath Placed During This Visit: yes, but has since been removed by the nurse Reason for Continuing Indwelling Catheter: Accurate Measurement of Urinary Output in Critically Ill Patients Urinary Catheter Date of Insertion: 06/28/20 Urinary Catheter Time of Insertion: 08:23 Date Urinary Catheter Removed: 07/01/20 Time Urinary Catheter Discontinued: 09:40 Data : 07/01/20 04:36 07/01/20 04:36 A&P Assessment and plan (1) Status post aorto-coronary artery bypass graft: POD #5 status post CABG x2. Atrial arrhythmia resolved. Plan: Betasept shower this morning. Lactulose p.o. Will plan to discharge to home later today with home health services. Greatly appreciate expertise and oversight of Dr. Adams over the weekend. Status: Acute Attestations Medical Necessity Statement*: POD #5 status post CABG Time Spent in Patient Care: 16 - 35 minutes Coding Level of Care Code Acute Personnel Administrator for Chg Fwd Diagnoses Status post aorto-coronary artery bypass graft Z95.1
--- NOTE | 2020-07-03 05:57 | PC.NURSE ---
Shift Summary: Patient able to sleep some overnight. Pt was up to chair a few times throughout shift. At 0530, pt ambulated through unit about 4 laps around nursing station. Benadryl PO given in efforts to aid in sleep. Ines rounded on pt early this AM. V/O given to initiate d/c process and to coordinate with [employer] Appellate Clerk to setup Home Health services. Advised that he would round again later this afternoon and assess readiness for discharge. Patient is up to chair currently. Stool softeners/laxatives given per MD Ines request. 1500 u/o
[2020-07-03 07:45] LABS: Glucose Point of Care 235 mg/dL (70-110)
[2020-07-03] MEDS: aspirin 325 mg Tablet PO (08:01)
[2020-07-03] MEDS: tamsulosin 0.4 mg Capsule 0.8 MG PO (08:01)
[2020-07-03] MEDS: amoxicillin 500 mg Capsule PO ×2 (08:01→15:25)
[2020-07-03] MEDS: docusate sodium 100 mg Capsule PO (08:01)
[2020-07-03] MEDS: amiodarone 200 mg Tablet 400 MG PO (08:01)
[2020-07-03] MEDS: metoprolol tartrate 50 mg Tablet 100 MG PO ×2 (08:01→11:39)
[2020-07-03] MEDS: atorvastatin 40 mg Tablet PO (08:01)
[2020-07-03] MEDS: chlorhexidine gluconate 0.12% Btl 473 mL 15 ML MUCOUS MEM (08:03)
--- NOTE | 2020-07-03 08:44 | PC.NURSE ---
Case management notified of possible discharge, home health needs to be arranged. Kaley, case management, just called pt set up on [facility] home health. Good to go.
[2020-07-03] MEDS: metoprolol tartrate 1 mg/1 mL SDV 5 mL 5 MG IV ×2 (09:42→10:24)
--- NOTE | 2020-07-03 09:42 | PC.CHAP ---
Pastoral Care Encounter/Spiritual Assessment Type of Contact [] Declined director of training visit [] Patient/Family/Request visit [] Outpatient visit [] Follow-up visit [] Physician referral [] Code/Alert [] Routine visit [] Staff referral [] Actively dying [] Patient sleeping [] Family support [] [x] Out of room [] Palliative care [] [] Receiving care in room [] Pre-surgical visit [] Trauma [] Long length of stay [] ICU visit [] Other: Relational/Emotional Strength [] Patient feels connected with others/family/visitors/staff [] Distress [] Loneliness/isolation [] Abandonment Spirituality of Patient [] Person of Daphne [] Attends Presybeterian of their Daphne [] Believes in Prayer [] Reads Bible or Sikh materials [] There are Spiritual issues to be addressed Pizza Maker Interventions [x] Prayer [] Active listening [] Non-anxious presence [] Spiritual/emotional support [] Crisis/trauma care [] Spiritual counseling [] Bereavement support [] Provided bereavement packet [] Provided Bible/devotional materials [] Provided toy/stuffed animal, coloring book to patient or family member [] Provided Communion [] Anointing/[place] [] Salvation [x] Completed spiritual assessment [] Other: Impact on Illness or Injury [] Angry [] Fearful [] Anxious [] Often cries [] Exhaustion [] Unable to work [] Unable to attend taoism [] Unable to walk/stand [] Unable to read [] Unable to drive [] Unable to eat/drink [] Unable to sleep [] Unable to be with family [] Patient intubated [] Other: Summary Time spent with patient
[2020-07-03] MEDS: nicotine 14 mg Patch 1 PATCH TRANSDERMA (09:45)
--- NOTE | 2020-07-03 10:08 | PC.NURSE ---
Dr Cordon notified: Pt has had morning meds , includes Amiodarone 400mg BID and metoprolol 400mg BID. , he has had laxatives, he had been to the shower, massive bowel movement, heart rate now elevated 120's, Metoprolol 5mg IV given, as ordered b Dr Adams yesterday. Pt had done this off on and since Friday but he converts. His ECG yesterday said A-flutter.. Pt did this yesterday and his heart rate converted within 5 minutes, not today. It has not improved. Dr Chacon is looking at discharging him. Dr Cordon stated he would look at and adjust his medications.
--- NOTE | 2020-07-03 10:09 | P.DS_ITS ---
Discharge Providers Date of Admission: 06/28/20 04:56 Date of Discharge: July 03, 2020 Attending Provider at Admission: Joshua Chacon MD Attending Provider at Discharge: Joshua Chacon MD Primary Care Provider: Gulshan Javier MD Diagnoses at Discharge Discharge Diagnosis (1) Status post aorto-coronary artery bypass graft: Status: Acute Reason for Visit Reason for Visit: CABG Hospital Course Discharge Summary: Mr. Vargas is a 69-year-old gentleman with known severe two- vessel coronary artery disease that is been previously evaluated by Dr. Adame and underwent an attempt at intervention to a heavily calcific mid LAD lesion with a known RCA occlusion. Unfortunately this was unsuccessful. Medical management has been attempted, but he continues to have episodes of chest pain. His catheterization was reviewed by Dr. Cordon because of continuing episodes of chest discomfort. Dr. Cordon has recommended consideration for surgical revascularization. Mr. Vargas was electively admitted for planned CABG which was performed on June 28. Postop day, he has done quite well with some intermittent episodes of atrial fibrillation and atrial flutter with RVR which has been controlled with the use of metoprolol, amiodarone, and a brief period of IV Cardizem which is now been discontinued. He has progressed quite well at been very cooperative in his recovery. Wound VAC dressing was removed yesterday. Incision is clean and dry. Sternum stable. Drain sites well approximated. He received a Betasept shower today. Tolerating diet well. Bowel function has returned. He is eager for discharge. Home health services have been arranged with [facility] home health. He will be discharged home today, with appropriate restrictions, in stable condition. Physical Exam Chest: COMMONS NORMALS: normal inspection of the chest (Incision is intact, clean and dry. Drain sites are well approximated.) and normal palpation of entire chest wall (Chest wall is stable.) Resp: COMMON NORMALS: normal respiratory effort, No use of accessory muscles and clear to auscultation bilaterally EFFORT & INSPECTION: Yes able to speak in complete sentences AUSCULTATION: clear to auscultation bilaterally Cardio: COMMON NORMALS: regular rate, regular rhythm, S1 normal heart sound present, No gallops present (Cardio), No murmurs present (Cardio) and No rub (Cardio) RATE: regular rate RHYTHM: regular rhythm HEART SOUNDS: S1 normal heart sound present Extremity: COMMON NORMALS: no clubbing, cyanosis or edema Urinary Catheter Management^: Odom: Cath Placed During This Visit: yes, but has since been removed by the nurse Reason for Continuing Indwelling Catheter: Accurate Measurement of Urinary Output in Critically Ill Patients Urinary Catheter Date of Insertion: 06/28/20 Urinary Catheter Time of Insertion: 08:23 Date Urinary Catheter Removed: 07/01/20 Time Urinary Catheter Discontinued: 09:40 Discharge Data Data Completed and Pending: Completed Studies During Hospitalization Category Date Time Status XR chest 1V lux ble [id number] Routine Exams 06/28/20 07:20 Completed XR chest 1V lux ble [id number] Routine Exams 06/29/20 06:00 Completed XR chest 1V lux ble [id number] Routine Exams 06/30/20 06:00 Completed XR chest 1V lux ble [id number] Routine Exams 07/01/20 06:00 [place] [id number] Routi ne Ultrasound 06/21/20 09:30 [place] [id number] Routi ne Ultrasound 06/21/20 10:15 Completed Labs from last 24 hours 07/03/20 07/02/20 07/02/20 07:38 20:23 17:04 POC Glucose 235 217 311 07/02/20 11:22 POC Glucose 197 Vitals: Last Vital Signs Temp 97.6 F 07/02/20 20:00 Pulse 83 07/03/20 04:00 Resp 19 H 07/03/20 04:00 BP 126/73 07/03/20 04:00 Pulse Ox 95 07/03/20 04:00 Discharge Plan Discharge Patient Disposition: Home Health Service Condition: Stable Prescriptions: New hydrocodone-acetaminophen 5-325 mg tablet 1 tab PO Q6H PRN (Reason: pain) 7 Days Qty: 20 RF: 0 amoxicillin 500 mg Capsule 500 mg PO BID 7 Days Qty: 14 RF: 0 amiodarone [Pacerone] 200 mg Tablet 200 mg PO BID Qty: 28 RF: 0 Continued atorvastatin 40 mg tablet 40 mg PO DAILY Qty: 90 RF: 3 aspirin 325 mg Tablet 325 mg PO DAILY RF: 0 metoprolol tartrate 100 mg tablet 100 mg PO BID RF: 0 fenofibrate 54 mg tablet 54 mg PO DAILY RF: 0 glipizide 5 mg tablet 10 mg PO DAILY RF: 0 tamsulosin 0.4 mg capsule 0.8 mg PO DAILY RF: 0 isosorbide mononitrate 30 mg tablet extended release 24 hr 30 mg PO BEDTIME RF: 0 nitroglycerin 0.4 mg tablet, sublingual See Rx Instructions .ROUTE .COMPLEX PRN (Reason: Chest Pain) RF: 0 Discharge Orders: Discharge Order (Routine); Ordered 07/03/20 Ordered By: Joshua Chacon Referrals: Joshua Chacon MD [Physician] - 7-10 days Discharge Diet: Diabetic Discharge Activity: Limit activity as instructed Activity Restrictions/Additional Instructions: May shower daily with incisions uncovered. Dry incisions completely after shower. May cover or leave open if desired. No swimming or tub baths x4 weeks. No lifting more than 5 pounds with arms for 8 weeks. Use incentive spirometer frequently. Elevate legs when possible Contact office with any concerns such as fever, chills, redness of incision, increased pain of incision, drainage from incision, shortness of breath, increasing chest pain, or increasing swelling in legs. May prefer to sleep in recliner or with back and head elevated for the next several days after discharge. Discharge Attestations Time Spent in Discharge Care*: less than 30 min Specific Discharge Activities: Specific discharge activities: educating patient, discussing with pcp/other providers, discussing with home health care case manager/social workers/dc planners, documenting/other paperwork and evaluating patient/reviewing data Time Spent in Smoking Cessation: Time spent discussing smoking cessation with patient: 3 to 10 minutes Status at Discharge: Cognitive status at discharge: cognitively intact , Behavioral status at discharge: cooperative , Functional status at discharge: independent ambulation Overall status at discharge: patient is progressing back to baseline Quality Metrics Clinical Quality Measures During this hospital stay, did patient experience: None Coding Level of Care Code Acute Customer Training Specialist for Loretta Pantoja Diagnoses Status post aorto-coronary artery bypass graft Z95.1
--- NOTE | 2020-07-03 10:13 | PC.NURSE ---
Dr Cordon here on unit examining pt.
--- NOTE | 2020-07-03 10:38 | PM.PN ---
Subjective Subjective: Interval history: Patient has been doing well. Denies complaints of chest pain, shortness of breath, or palpitations. He went into atrial flutter today morning. Vitals/I&O/Wt Last Vital Signs Temp 97.6 F 07/02/20 20:00 Pulse 83 07/03/20 04:00 Resp 19 H 07/03/20 04:00 BP 126/73 07/03/20 04:00 Pulse Ox 95 07/03/20 04:00 07/02/20 07/03/20 07/03/20 22:59 06:59 14:59 Intake Total 800 / 1150 530 / 1680 Output Total 600 / 1100 1050 / 2150 Balance 200 / 50 -520 / -470 Weight last 48 hrs Weight 219 lb 10 oz Weight 220 lb 3 oz Physical Exam Narrative: EXAM NARRATIVE: GENERAL: The patient is alert and oriented times three. Not in any acute distress. HEENT: No significant pallor, icterus or lymphadenopathy.Oral cavity: There are no mucous membrane lesions. NECK: Trachea appears to be central. No masses noted. No JVD or thyromegaly appreciated. RESPIRATORY: The sternotomy site has no hematoma or bleeding. No sounds are heard bilaterally with no rales or rhonchi. Slightly diminished breath sounds in the bases. BREASTS: Deferred. HEART: The heart sounds are normal. No S3 or S4. Short systolic murmur in the left sternal border. No diastolic murmurs. No pericardial rub ABDOMEN: No vessel pulsations or distention. No tenderness. No organomegaly appreciated. Bowel sounds are normally heard. : Deferred. RECTAL: Deferred. LYMPHATIC: No lymphadenopathy noted in the neck or groin. EXTREMITIES: No edema or cyanosis. No clubbing. Peripheral pulses are palpated in fairly good volume and amplitude MUSCULOSKELETAL: No acute joint deformities or swelling SKIN: There are no significant rashes or ecchymosis NEUROPSYCHIATRIC: The patient is alert and oriented x3. Appears to be in a good mood. No tremors or rigidity noted. Urinary Catheter Management^: Odom: Cath Placed During This Visit: yes, but has since been removed by the nurse Reason for Continuing Indwelling Catheter: Accurate Measurement of Urinary Output in Critically Ill Patients Urinary Catheter Date of Insertion: 06/28/20 Urinary Catheter Time of Insertion: 08:23 Date Urinary Catheter Removed: 07/01/20 Time Urinary Catheter Discontinued: 09:40 Data : 07/03/20 13:35 07/03/20 13:35 A&P Assessment and plan (1) Status post aorto-coronary artery bypass graft: Cardiovascular status seems to be stable. Have increased the dose of metoprolol to 150mg BID Status: Acute (2) Postoperative atrial fibrillation: Continue amiodarone, will uptitrate metoprolol dose to 150mg BID.. Status: Acute (3) PVD (peripheral vascular disease): Continue on the current treatment measures. Status: Acute (4) Hyperlipidemia: Patient is on a statin. Continue the current medications. Status: Acute (5) Diabetes mellitus: We will continue with aggressive measures to control the blood sugar. Status: Acute (6) Hypertension: Increasing the dose of metoprolol to 150 mg BID Status: Acute Attestations Medical Necessity Statement*: Care expected to cross 2 midnights. Patient s.p CABG Coding Level of Care Code Acute Ip Counsel for Chg Fwd Diagnoses Status post aorto-coronary artery bypass graft Z95.1 Postoperative atrial fibrillation I97.89; I48.91 PVD (peripheral vascular disease) I73.9 Hyperlipidemia E78.5 Diabetes mellitus E11.9 Hypertension I10
--- NOTE | 2020-07-03 10:50 | PC.SOCIAL ---
IMM Updated Page 2 of IMM updated with patient. Initialed, dated, and timed and placed back in chart. Copy provided to patient.
[2020-07-03 13:44] LABS: Basophils # 0.1 10^3/uL (0.0-0.1); Basophils % 0.9 %; Eosinophils # 0.3 10^3/uL (0.0-0.8); Eosinophils % 3.4 %; Hematocrit 26.5 % (42.0-52.0); Hemoglobin 9.1 g/dL (11.7-16.6); Lymphocytes # 1.1 10^3/uL (0.8-4.8); Lymphocytes % 13.3 %; Mean Corpuscular HGB Conc 34.3 g/dL (30.0-36.0); Mean Corpuscular Hemoglobin 31.1 pg (28.0-34.0); Mean Corpuscular Volume 90.4 fL (80-94); Mean Platelet Volume 9.4 fL (7.4-10.4); Monocytes # 1.2 10^3/uL (0.2-0.9); Monocytes % 14.2 %; Neutrophils # 5.67 10^3/uL (1.8-7.7); Nucleated Red Blood Cells % 0.5 %; Platelet Count 208 10^3/cmm (130-400); Red Blood Count 2.93 10^6/uL (4.1-5.3); Red Cell Distribution Width 14.4 % (12.1-15.1); White Blood Count 8.6 10^3/uL (4.0-10.0)
[2020-07-03 14:02] LABS: Anion Gap 14.9 (5-19); Blood Urea Nitrogen 19 mg/dL (8-23); Calcium 9.1 mg/dL (8.5-10.5); Carbon Dioxide 23 mmol/L (22-29); Chloride 101 mmol/L (98-107); Glomerular Filtration Rate 74.3 mL/min (90-130); Glucose 228 mg/dL (65-115); Magnesium 1.8 mg/dL (1.7-2.3); Osmolality Calculated 289 mOsm/kg (285-295); Potassium 3.9 mmol/L (3.5-5.1); Sodium 135 mmol/L (136-145)
--- NOTE | 2020-07-03 16:17 | PC.NURSE ---
Dischage instructions provided and thoroughly discussed. New prescriptions, continued med and stopped meds discussed. Sternal precautions and post-CABG incision care provide and discussed. All questions answered. Follow-up appts provided and discussed. Pt discharged. To exit via W/C to POV.
[2020-07-04 07:23] LABS: Glucose Point of Care 179 mg/dL (70-110)
== END 2020-07-03 16:00 | disposition home health service (06) | DRG 236 ==
LOC: OR 04:56 → ICU 06:25
PROVIDERS: Admitting Provider Thoracic Surgery (Cardiothoracic Vascular Surgery); PCP Family Medicine; Visit Provider Thoracic Surgery (Cardiothoracic Vascular Surgery)
PROC: 02100Z9 Bypass Coronary Artery, One Artery from Left Internal Mammary, Open Approach (ICD-10-PCS; principal; 2020-06-28 07:00)
DX: I25.110 Atherosclerotic heart disease of native coronary artery with unstable angina pectoris (principal); I97.190 Other postprocedural cardiac functional disturbances following cardiac surgery; Y83.2 Surgical operation with anastomosis, bypass or graft as the cause of abnormal reaction of the patient, or of later complication, without mention of misadventure at the time of the procedure; J44.9 Chronic obstructive pulmonary disease, unspecified; E11.51 Type 2 diabetes mellitus with diabetic peripheral angiopathy without gangrene; Z98.1 Arthrodesis status; H91.90 Unspecified hearing loss, unspecified ear; N40.0 Benign prostatic hyperplasia without lower urinary tract symptoms; E78.5 Hyperlipidemia, unspecified; Z85.828 Personal history of other malignant neoplasm of skin; Z87.891 Personal history of nicotine dependence; Z79.84 Long term (current) use of oral hypoglycemic drugs; K21.9 Gastro-esophageal reflux disease without esophagitis; E11.22 Type 2 diabetes mellitus with diabetic chronic kidney disease; I12.9 Hypertensive chronic kidney disease with stage 1 through stage 4 chronic kidney disease, or unspecified chronic kidney disease; N18.9 Chronic kidney disease, unspecified; Z98.61 Coronary angioplasty status
CPT/HCPCS: 12345; 36415; 36416; 36592; 36600; 51702; 71045; 80048; 80051; 80076; 81001; 82803; 82810; 82962; 83735; 83986; 84439; 84443; 85025; 85610; 85730; 86850; 86900; 86920; 87635; 90471; 90686; 93005; 93970; 94002; 94640; 94799; 96365; 96372; 96375; 97110; 97116; 97163; 97167; 97530; 97535; C9113; J0171; J0697; J1250; J1644; J1650; J1815; J1940; J1956; J2001; J2150; J2250; J2270; J2370; J2405; J2440; J2704; J2720; J3010; J3370; J3475; J3480; J3490; J7030; J7040; J7050; P9041; P9047; Q3014

== ENCOUNTER 2020-07-31 09:30 | Emergency (ER) | payer MEDICARE, SELFPAY ==
[2020-07-31 09:46] VITALS: BP 145/77; PULSE 64; RESP 18; TEMP 36.6; O2SAT 97; BMI 27.0
--- NOTE | 2020-07-31 11:09 | ECG_ITS ---
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 Measurements Intervals Grace Rate: 64 P: 57 SC: 166 QRS: 32 QRSD: 97 T: 59 QT: 411 QTc: 425 Interpretive Statements SINUS RHYTHM POSSIBLE LEFT ATRIAL ENLARGEMENT [-0.1mV P WAVE IN V1/V2] INCOMPLETE RIGHT BUNDLE BRANCH BLOCK [90+ ms QRS DURATION, TERMINAL R IN V1/V2, 40+ ms S IN I/aVL/V4/V5/V6] MINIMAL ST DEPRESSION [0.025+ mV ST DEPRESSION] Compared to ECG 07/02/2020 10:45:08 Atrial flutter no longer present ST (T wave) deviation still present Electronically Signed On 07-31-2020 18:25:46 WOOD LAST MAKER by Ranjan Adams M.D. [id number]
--- NOTE | 2020-07-31 11:09 | XR_ITS ---
WS: [id number] Exam: XR chest 1V portable [id number] Date/Time of Exam: 07/31/2020 11:30 AM Reason For Exam: chest pain Comparison 07/01/2020. The lungs are clear and fully expanded. No pleural effusions. Cardiomediastinal structures are unrema rkable for technique. Signs of median sternotomy and CABG surgery. Regional bony elements are intact. XR/XR chest 1V portable [id number] IMPRESSION: 1. No acute cardiopulmonary finding.
--- NOTE | 2020-07-31 11:23 | W.ED.CHESTPA ---
HPI - Chest Pain General: Chief Complaint: Chest Pain Stated Complaint: SOB Time Seen by Provider: 07/31/20 11:08 Source: patient Mode of arrival: ambulatory Limitations: other (hard of hearing) History of Present Illness: HPI narrative: Mr. Vargas is a 70-year-old gentleman who had a coronary artery bypass graft about 5 weeks ago. He woke up yesterday with upper back pain and left shoulder pain that has continued into today. He first thought it was muscular but because he did not get any better he decided to come in for evaluation. He has tried ice and heat but no improvement. He denies any dizziness, nausea or vomiting, or diaphoresis. He does have some chest pain that developed about 4 to 5 hours ago, retrosternal, nonradiating, worse on inspiration. Pertinent past history: coronary artery disease and CABG Onset (ago): day(s) (1) Timing of current episode: constant Prior episodes: No Onset: during rest Relieving factors: nothing Exacerbating factors: nothing Context: recent surgery Associated symptoms: Deny abdominal pain, diaphoresis, dyspnea, fever(s), leg edema, nausea, palpitations, sense of impending doom, syncope or vomiting Treatment prior to arrival: other (Ice and heat) Review of Systems General: Reports: 10 or more systems reviewed and unremarkable except in HPI and below Const: Denies: fever(s) or diaphoresis Eyes: Denies: change in vision or blurry vision ENMT: Denies: throat pain, enlarged tonsils, odynophagia, hoarseness, mouth pain or swelling of lips/tongue Card: Denies: palpitations or syncope Resp: Denies: dyspnea GI: Denies: abdominal pain, nausea or vomiting : Denies: flank pain, dysuria, urinary frequency, urinary urgency or urinary hesitancy Musc: Denies: neck pain, back pain or extremity swelling Skin/Breast: Denies: rash, pruritus or erythema Neuro: Denies: headache(s), numbness in extremities or weakness in extremities Endo: Denies: polyuria, polydipsia or tired all the time [facility] PFSH: Medical History (Updated 07/31/20 @ 14:30 by Stacy Gupta MD, [facility] [place]) COPD (chronic obstructive pulmonary disease) Coronary artery disease Diabetes mellitus Fusion of lumbar spine Hard of hearing History of BPH Hyperlipidemia PVD (peripheral vascular disease) Skin cancer SOB (shortness of breath) Surgical History (Reviewed 07/31/20 @ 11:26 by Stacy Gupta MD, [facility] [place]) Arthrodesis status H/O cataract removal with insertion of prosthetic lens History of cholecystectomy History of lumbar fusion (~06/01/18) L4-5 laminectomy/fusion/fixation Hx of CABG Hx of coronary angioplasty Hx of tonsillectomy Family History (Reviewed 07/31/20 @ 11:26 by Stacy Gupta MD, [facility] [place]) Father , AGE 84 CAD (coronary artery disease) Hypertension Diabetes Myocardial infarction Mother , AGE 83 Hypertension Diabetes Stroke Social History (Reviewed 07/31/20 @ 11:26 by Stacy Gupta MD, [facility] [place]) Smoking and tobacco status: former smoker Quit status (tobacco): has quit using tobacco Second hand smoke exposure: No Smoking risk assessment/counseling performed?: No Alcohol intake: current Alcohol intake frequency: 0-2 Drinks per Day Lives independently: Yes Marital status: Single Current occupational status: retired History of recent travel: No Physical Exam Const: COMMON NORMALS: no acute distress, average body habitus, patient oriented x3, no limitations, healthy appearing, alert and well nourished HENMT: COMMON NORMALS: normocephalic, atraumatic and moist oral mucous membranes HEAD & SCALP: normocephalic and atraumatic Eye: COMMON NORMALS: Equal, round and reactive pupils present, EOMs intact bilaterally, conjunctivae normal and no scleral icterus CONJUNCTIVA: Yes conjunctivae normal PUPIL: Yes Equal, round and reactive pupils present Neck/C-Spine: COMMON NORMALS: full ROM, supple, no meningeal signs, no JVD and No carotid bruits Chest: COMMONS NORMALS: normal palpation of entire chest wall CHEST: Yes other (Surgical scar from CABG healing well. No signs of infection or complicatio) Resp: COMMON NORMALS: normal respiratory effort, No retractions, No use of accessory muscles, clear to auscultation bilaterally and percussion normal AUSCULTATION: clear to auscultation bilaterally PERCUSSION: percussion normal Cardio: COMMON NORMALS: no JVD, regular rate, regular rhythm, S1 normal heart sound present, S2 normal heart sound present, No gallops present (Cardio), No clicks present (Cardio), No murmurs present (Cardio), No rub (Cardio) and Peripheral pulses 2+ throughout RATE: regular rate RHYTHM: regular rhythm HEART SOUNDS: S1 normal heart sound present and S2 normal heart sound present PERIPHERAL PULSES: Peripheral pulses 2+ throughout GI: COMMON NORMALS: Normal to inspection, nondistended, normoactive bowel sounds present, Soft to palpation, non-tender, No hepatosplenomegaly present, no masses and no bruits PALPATION: Yes Soft to palpation and Yes No hepatosplenomegaly present Extremity: COMMON NORMALS: normal to inspection, full ROM, capillary refill normal, no calf tenderness and no pedal edema Neuro: COMMON NORMALS: patient oriented x3 SENSORIUM/ORIENTATION: Yes alert MENINGEAL SIGNS: Yes no meningeal signs Skin: COMMON NORMALS: no rashes or lesions noted, no wounds, turgor normal, no jaundice, no petechiae and no mottling GENERAL SKIN EXAM: no rashes or lesions noted and turgor normal Course Reevaluation(s): Reevaluation #1: Discussed his lab and imaging findings with him. 2-hour delta troponin is flat. He says all his pain has resolved and wants to be discharged home since the 2-hour troponin delta was flat. He is advised to follow-up with his primary care provider and his staff development manager/cardiothoracic surgeon. He voiced understanding and is in agreement with the plan. Time: 14:28 Vital Signs: Vital signs: Vital Signs Temperature 97.9 F 07/31/20 09:46 Pulse Rate 63 07/31/20 13:00 Respiratory Rate 16 07/31/20 13:00 Blood Pressure 137/73 07/31/20 13:00 Pulse Oximetry 97 07/31/20 13:00 MDM - Chest Pain MDM Narrative: Medical decision making narrative: Patient with back, shoulder, and chest pain. He had recent CABG about 5 weeks ago. Evaluation in the emergency department is unremarkable with mildly elevated high-sensitivity troponin and a flat 2-hour delta. Other labs and imaging were unremarkable. He is therefore discharged home to follow-up with his primary care provider and staff development manager and cardiac surgeon. Lab Data: Labs: Lab Results 07/31/20 07/31/20 07/31/20 Range/Units 11:30 11:30 11:30 WBC 8.8 (4.0-10.0) 10^3/ uL RBC 4.36 (4.1-5.3) 10^6/u L Hgb 12.9 (11.7-16.6) g/dL Hct 37.7 L (42.0-52.0) % MCV 86.5 (80-94) fL MCH 29.6 (28.0-34.0) pg MCHC 34.2 (30.0-36.0) g/dL RDW 14.2 (12.1-15.1) % Plt Count 146 (130-400) 10^3/c mm MPV 9.3 (7.4-10.4) fL Neut % (Auto) 73.9 % Lymph % (Auto) 9.6 % [place] % (Auto) 12.6 % Eos % (Auto) 2.7 % Baso % (Auto) 0.7 % Neut # (Auto) 6.53 (1.8-7.7) 10^3/u L Lymph # (Auto) 0.9 (0.8-4.8) 10^3/u L [place] # (Auto) 1.1 H (0.2-0.9) 10^3/u L Eos # (Auto) 0.2 (0.0-0.8) 10^3/u L Baso # (Auto) 0.1 (0.0-0.1) 10^3/u L Nucleated RBC % (a uto) 0 % Nucleated RBCs # 0.0 /100WBC Sodium 134 L (136-145) mmol/L Potassium 4.7 (3.5-5.1) mmol/L Chloride 99 (98-107) mmol/L Carbon Dioxide 23 (22-29) mmol/L Anion Gap 16.7 (5-19) BUN 12 (8-23) mg/dL Creatinine 1.0 (0.7-1.2) mg/dL GFR Calculation 74.1 L (90-130) mL/min Glucose 185 H (65-115) mg/dL Calculated Osmolal ity 283 L (285-295) mOsm/k g Calcium 9.6 (8.5-10.5) mg/dL Total Bilirubin 1.0 (0.15-1.2) mg/dL AST 19 (0-40) U/L ALT 18 (0-41) U/L Alkaline Phosphata se 86 (40-130) IU/L Troponin T Baselin e 24 H (0-15) ng/L Troponin T 120 Min galena (0-15) ng/L Delta Troponin T (0-10) ABS# NT-Pro-B Natriuret Pep 571 H (0-125) pg/mL Total Protein 7.3 (6.6-8.7) g/dL Albumin 4.4 (3.5-5.2) g/dL Globulin 2.9 (1.3-4.6) g/dL Lipase 32 (13-60) U/L /16/20 Range/Units 13:35 WBC (4.0-10.0) 10^3/ uL RBC (4.1-5.3) 10^6/u L Hgb (11.7-16.6) g/dL Hct (42.0-52.0) % MCV (80-94) fL MCH (28.0-34.0) pg MCHC (30.0-36.0) g/dL RDW (12.1-15.1) % Plt Count (130-400) 10^3/c mm MPV (7.4-10.4) fL Neut % (Auto) % Lymph % (Auto) % [place] % (Auto) % Eos % (Auto) % Baso % (Auto) % Neut # (Auto) (1.8-7.7) 10^3/u L Lymph # (Auto) (0.8-4.8) 10^3/u L [place] # (Auto) (0.2-0.9) 10^3/u L Eos # (Auto) (0.0-0.8) 10^3/u L Baso # (Auto) (0.0-0.1) 10^3/u L Nucleated RBC % (a uto) % Nucleated RBCs # /100WBC Sodium (136-145) mmol/L Potassium (3.5-5.1) mmol/L Chloride (98-107) mmol/L Carbon Dioxide (22-29) mmol/L Anion Gap (5-19) BUN (8-23) mg/dL Creatinine (0.7-1.2) mg/dL GFR Calculation (90-130) mL/min Glucose (65-115) mg/dL Calculated Osmolal ity (285-295) mOsm/k g Calcium (8.5-10.5) mg/dL Total Bilirubin (0.15-1.2) mg/dL AST (0-40) U/L ALT (0-41) U/L Alkaline Phosphata se (40-130) IU/L Troponin T Baselin e (0-15) ng/L Troponin T 120 Min galena 21.68 H (0-15) ng/L Delta Troponin T -2.32 L (0-10) ABS# NT-Pro-B Natriuret Pep (0-125) pg/mL Total Protein (6.6-8.7) g/dL Albumin (3.5-5.2) g/dL Globulin (1.3-4.6) g/dL Lipase (13-60) U/L Imaging Data^: CXR: Attestation: I personally reviewed and interpreted this imaging study as follows: Radiologist's impression: [address] [address] XRay Report Signed Patient: Ean Vargas #: [id number] : 1At#:[id number] Age/Sex: 70 / MADM Date: 07/31/20 [facility] Attending Dr: Ordering Provider/Ordering MD: Stacy Gupta MD, [facility] [place] Date of Service: 07/31/20 Procedure(s): XR chest 1V portable [id number] Accession Number(s): [id number] Report Number: [id number] WS: [id number] Exam: XR chest 1V portable [id number] Date/Time of Exam: 07/31/2020 11:30 AM Reason For Exam: chest pain Comparison 07/01/2020. The lungs are clear and fully expanded. No pleural effusions. Cardiomediastinal structures are unremarkable for technique. Signs of median sternotomy and CABG surgery. Regional bony elements are intact. XR/XR chest 1V portable [id number] IMPRESSION: 1. No acute cardiopulmonary finding. Dictated By:Bryan Pinto DO Signed By:Denis Cuellar Date/Time:07/31/20 1253 DD/ 1253 EKG Data^: EKG 1: Attestation: I personally reviewed and interpreted this EKG as follows: EKG interpretation date: 07/31/20 Prior EKG tracings: not available for review Computer generated interpretation: [facility] [address] 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1950 Requested By: Stacy Gupta I Order Number: [id number] Reading MD: Measurements Intervals [place] Rate: 64 P: 57 AK: 166 QRS: 32 QRSD: 97 T: 59 QT: 411 QTc: 425 Interpretive Statements SINUS RHYTHM POSSIBLE LEFT ATRIAL ENLARGEMENT [-0.1mV P WAVE IN V1/V2] INCOMPLETE RIGHT BUNDLE BRANCH BLOCK [90+ ms QRS DURATION, TERMINAL R IN V1/V2, 40+ ms S IN I/aVL/V4/V5/V6] MINIMAL ST DEPRESSION [0.025+ mV ST DEPRESSION] No previous ECG available for comparison [id number] Dictated By:INTERFACE,USER Signed By:Signed Date/Time: DD/ 3 EKG 2: Attestation: I personally reviewed and interpreted this EKG as follows: EKG interpretation date: 07/31/20 Computer generated interpretation: [facility] [address] 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1950 Requested By: Stacy Gupta I Order Number: [id number] Reading MD: Measurements Intervals [place] Rate: 64 P: 57 AK: 166 QRS: 32 QRSD: 97 T: 59 QT: 411 QTc: 425 Interpretive Statements SINUS RHYTHM POSSIBLE LEFT ATRIAL ENLARGEMENT [-0.1mV P WAVE IN V1/V2] INCOMPLETE RIGHT BUNDLE BRANCH BLOCK [90+ ms QRS DURATION, TERMINAL R IN V1/V2, 40+ ms S IN I/aVL/V4/V5/V6] MINIMAL ST DEPRESSION [0.025+ mV ST DEPRESSION] No previous ECG available for comparison [id number] Dictated By:INTERFACE,USER Signed By:Signed Date/Time: DD/ 3 Discharge Plan Discharge Patient Disposition: Home Clinical Impression: Chest pain Qualifiers: Chest pain type: unspecified Qualified Code(s): R07.9 - Chest pain, unspecified Condition: Stable Prescriptions: Continued atorvastatin 40 mg tablet 40 mg PO DAILY Qty: 90 RF: 3 aspirin 325 mg Tablet 325 mg PO DAILY RF: 0 fenofibrate 54 mg tablet 54 mg PO DAILY RF: 0 glipizide 5 mg tablet 10 mg PO DAILY RF: 0 tamsulosin 0.4 mg capsule 0.8 mg PO DAILY RF: 0 isosorbide mononitrate 30 mg tablet extended release 24 hr 30 mg PO BEDTIME RF: 0 nitroglycerin 0.4 mg tablet, sublingual See Rx Instructions .ROUTE .COMPLEX PRN (Reason: Chest Pain) RF: 0 metoprolol tartrate 100 mg tablet 150 mg PO BID Qty: 180 RF: 3 Discharge Orders: Discharge Order (Routine); Ordered 07/31/20 Ordered By: Stacy Gupta Referrals: Gulshan Javier MD [Primary Care Provider] - 1-3 days Discharge Diet: Low Salt and Low Cholesterol Discharge Activity: Increase activity as tolerated Patient Instructions: Chest Pain (ED) Activity Restrictions/Additional Instructions: Return for any new or worsening symptoms. Follow up with your primary care provider within 2 days. Continue your home medications as prescribed. Continue your management as outlined by Dr. Chacon. 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
[2020-07-31 11:33] VITALS: BP 112/63; PULSE 66; RESP 19; O2SAT 98
[2020-07-31 11:40] LABS: Basophils # 0.1 10^3/uL (0.0-0.1); Basophils % 0.7 %; Eosinophils # 0.2 10^3/uL (0.0-0.8); Eosinophils % 2.7 %; Hematocrit 37.7 % (42.0-52.0); Hemoglobin 12.9 g/dL (11.7-16.6); Lymphocytes # 0.9 10^3/uL (0.8-4.8); Lymphocytes % 9.6 %; Mean Corpuscular HGB Conc 34.2 g/dL (30.0-36.0); Mean Corpuscular Hemoglobin 29.6 pg (28.0-34.0); Mean Corpuscular Volume 86.5 fL (80-94); Mean Platelet Volume 9.3 fL (7.4-10.4); Monocytes # 1.1 10^3/uL (0.2-0.9); Monocytes % 12.6 %; Neutrophils # 6.53 10^3/uL (1.8-7.7); Neutrophils % 73.9 %; Nucleated Red Blood Cells % 0 %; Platelet Count 146 10^3/cmm (130-400); Red Blood Count 4.36 10^6/uL (4.1-5.3); Red Cell Distribution Width 14.2 % (12.1-15.1); White Blood Count 8.8 10^3/uL (4.0-10.0)
[2020-07-31 12:00] LABS: Troponin(5th) Baseline 24 ng/L (0-15)
[2020-07-31 12:08] LABS: Alanine Aminotransferase 18 U/L (0-41); Albumin Level 4.4 g/dL (3.5-5.2); Alkaline Phosphatase 86 IU/L (40-130); Anion Gap 16.7 (5-19); Aspartate Amino Transferase 19 U/L (0-40); Blood Urea Nitrogen 12 mg/dL (8-23); Calcium 9.6 mg/dL (8.5-10.5); Carbon Dioxide 23 mmol/L (22-29); Chloride 99 mmol/L (98-107); Globulin 2.9 g/dL (1.3-4.6); Glomerular Filtration Rate 74.1 mL/min (90-130); Glucose 185 mg/dL (65-115); Lipase 32 U/L (13-60); NT Pro B Type Natriuretic Pept 571 pg/mL (0-125); Osmolality Calculated 283 mOsm/kg (285-295); Potassium 4.7 mmol/L (3.5-5.1); Sodium 134 mmol/L (136-145); Total Protein 7.3 g/dL (6.6-8.7)
[2020-07-31 13:00] VITALS: BP 137/73; PULSE 63; RESP 16; O2SAT 97
--- NOTE | 2020-07-31 13:09 | ECG_ITS ---
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 [id number]
[2020-07-31 14:20] LABS: Troponin 5 2HR 21.68 ng/L (0-15)
[2020-07-31 14:21] LABS: Troponin 5 2HR Delta -2.32 ABS# (0-10)
[2020-07-31 14:42] VITALS: BP 137/75; PULSE 67; RESP 22; O2SAT 98
== END 2020-07-31 14:43 | disposition home or self-care (01) ==
PROVIDERS: Emergency Provider Family Medicine; PCP Family Medicine
DX: R07.9 Chest pain, unspecified (principal); Z79.84 Long term (current) use of oral hypoglycemic drugs; E11.9 Type 2 diabetes mellitus without complications; Z87.891 Personal history of nicotine dependence; Z95.1 Presence of aortocoronary bypass graft; Z98.1 Arthrodesis status; Z98.61 Coronary angioplasty status; J44.9 Chronic obstructive pulmonary disease, unspecified; E78.5 Hyperlipidemia, unspecified; I25.10 Atherosclerotic heart disease of native coronary artery without angina pectoris; I73.9 Peripheral vascular disease, unspecified; Z79.82 Long term (current) use of aspirin
CPT/HCPCS: 12345; 71045; 80053; 83690; 83880; 84484; 85025; 93005; 99282; 99283

== ENCOUNTER → 2021-04-10 09:35 | Outpatient (BNVA) | payer MEDICARE, SELFPAY | PROVIDERS: PCP Family Medicine; Visit Provider Orthopaedic Surgery | DX: Z98.1 Arthrodesis status (principal); M41.86 Other forms of scoliosis, lumbar region | CPT/HCPCS: 72110 ==

== ENCOUNTER 2021-05-22 10:49 | Outpatient (CLI) | payer MEDICARE, SELFPAY ==
--- NOTE | 2021-05-22 11:00 | MR_ITS ---
WS: [id number] MRI LUMBAR SPINE NONCONTRAST TECHNIQUE: Sagittal T1, T2 and STIR imaging. Axial T1 and T2 imaging. CLINICAL INFORMATION: Z98.1 - Arthrodesis status COMPARISON: MRI [address] January 25, 2020 FINDINGS: Mild lumbar curve. No acute compression. Pedicle screw fixation L4-5 is new since 2017. Slight anamika listhesis L4 on L5 is stable since the recent CT. Decompressive laminectomies in the lower lumbar spi ne. L1-L2: Mild annular bulging. Mild facet arthropathy. Spinal canal and foramen are patent. L2-L3: Mild annular bulging with slight narrowing of the left subarticular recess. Mild left and no s ignificant right foraminal narrowing. Moderate facet arthropathy. L3-L4: Mild annular bulging with slight effacement of the ventral thecal sac. Narrowing of the left s ubarticular recess. Slight encroachment on traversing left L4 nerve root. Moderate left foraminal bobbi rowing. Mild right foraminal narrowing. L4-L5: Grade 1 anterolisthesis. Pedicle screw fixation. Mild to moderate right and mild left foramina l narrowing. L5-S1: Tiny central disc protrusion. Spinal canal and foramen are patent. Mild facet arthropathy. Visualized pelvic bony structures: Normal. Paravertebral soft tissues: Normal. MR/MR lumbar spine wo con* [id number] IMPRESSION: 1. Mild lumbar curve. No acute compression. 2. Prior pedicle screw fixation L4-5 with stable grade 1 anterolisthesis L4 on L5. 3. Mild disc bulging L3-4 with slight narrowing of the subarticular recess maile aterally worse in the left. Moderate left L3-4 foraminal narrowing impinges the exiting left L3 nerve root. Mild right L3-4 foraminal narrowing. 4. Mild to moderate right L4-5 foraminal narrowing. 5. Tiny shallow central protrusion L5-S1 without significant nerve root imping ement.
== END 2021-05-22 10:50 | disposition home or self-care (01) ==
PROVIDERS: PCP Family Medicine; Visit Provider Orthopaedic Surgery
DX: Z98.1 Arthrodesis status (principal); M51.27 Other intervertebral disc displacement, lumbosacral region; M51.26 Other intervertebral disc displacement, lumbar region
CPT/HCPCS: 72148

== ENCOUNTER 2021-06-05 08:12 | Outpatient (CLI) | payer MEDICARE, SELFPAY ==
--- NOTE | 2021-06-05 08:18 | CT_ITS ---
WS: [id number] CT ABDOMEN AND PELVIS WITH CONTRAST HISTORY: ABDOMINAL PAIN RUQ AND LUQ PAIN TECHNIQUE: Imaging performed of the abdomen and pelvis with IV contrast. Single phase imaging of the abdomen. Coronal and sagittal reformats are submitted. All CT scans at [facility] use at [facility] one of these dose optimization techniques: automated exposure control; mA and/or kV adjustment per patient size (includes targeted exams where dose is matched to clinical indication); or iterative re construction. IV CONTRAST: Omnipaque 300; 95 mL IV. Oral contrast: Yes. DLP: 812.15 mGycm COMPARISON: 01/22/2017 Lower thorax: Prior CABG. Small hiatal hernia. New 8mm nodule along the LEFT diaphragmatic surface. T here is an additional irregular soft tissue nodule along the medial LEFT lower lobe infiltrate immedi ately visualized nodule in the LEFT lower lobe on the very first image. Heart is normal size. Liver/biliary system: Liver is abnormal. Multifocal confluent and scattered low-attenuation nodules t hroughout the liver. These are predominantly within the RIGHT lobe of the liver consistent with exten sive neoplastic disease until proven otherwise. There is an abrupt cut off of the main portal vein co nsistent with tumor thrombosis. There is tumor thrombus noted extending into the proximal LEFT main p ortal vein. The RIGHT portal vein is completely obstructed with tumor. Small amount of perihepatic as cites. Gallbladder: Status post cholecystectomy. Pancreas: Normal size pancreas and pancreatic duct. No adjacent inflammation. Spleen: Spleen is enlarged measuring 16 cm in length. Small amount of perisplenic ascites. Adrenal glands: Normal. Right kidney: Normal. Left kidney: Normal. Aorta: Mild atherosclerosis with no aneurysm. Moderate atherosclerotic changes extend into the iliac arteries bilaterally. Lymphadenopathy: None. Free fluid: Small amount of perihepatic and perisplenic ascites. Fluid extends into the pelvis. GI tract: There is mild thickening of the stomach fundus and also the duodenal C-loop and proximal sm all bowel. Extensive diverticular disease throughout the colon. No obstructive lesions are identified and no soft tissue mass. Abdominal wall: Unremarkable abdominal wall. No hernia. Pelvis: Small amount of free fluid in the pelvis. Urinary bladder is not distended. Moderate prostate enlargement. No adenopathy. Bones: Posterior lumbar fusion at L4-5. LEFT curvature lumbar spine. CT/CT abdomen pelvis w con* [id number] IMPRESSION: 1. 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 Partial tumor thrombus obstructing the proximal LEFT portal vein. Different ial to consider is metastatic disease and primary hepatocellular cancer/cholang iocarcinoma. 2. Small amount of ascites within the abdomen and pelvis. 3. Moderate splenomegaly. 4. There is mild thickening involving the stomach fundus, antrum and small bow el. More prominent thickening involving the duodenal jejunal region. Could be n eoplastic. No adjacent lymph nodes. 5. Jane diverticulosis. No evidence for acute diverticulitis and no colonic mas s identified. 6. Prior cholecystectomy. 7. LEFT lower lobe nodules are indeterminate. Will need follow-up CT in 3 ganga hs to evaluate for any change. 8. Small hiatal hernia. 9. Prostate enlargement. Notified Gulshan Javier MD at 06/05/2021 10:50 AM. Message recorded on the [employer] service.
[2021-06-05] MEDS: iohexol 300 mg/mL 50 mL Btl PO (09:11)
[2021-06-05] MEDS: iohexol 300 mg/mL 100 mL Btl IV (10:03)
== END 2021-06-05 08:13 | disposition home or self-care (01) ==
PROVIDERS: PCP Family Medicine; Visit Provider Family Medicine
DX: R10.11 Right upper quadrant pain (principal); R10.12 Left upper quadrant pain; K76.89 Other specified diseases of liver; R18.8 Other ascites; R16.1 Splenomegaly, not elsewhere classified; K57.90 Diverticulosis of intestine, part unspecified, without perforation or abscess without bleeding; Z90.49 Acquired absence of other specified parts of digestive tract; R91.8 Other nonspecific abnormal finding of lung field; K44.9 Diaphragmatic hernia without obstruction or gangrene; N40.0 Benign prostatic hyperplasia without lower urinary tract symptoms
CPT/HCPCS: 74177; Q9967

== ENCOUNTER 2021-06-11 06:57 | Day surgery (SDC) | payer MEDICARE, SELFPAY ==
[2021-06-06 11:40] LABS: INR 1.06 (0.8-1.2)
[2021-06-06 11:41] LABS: Partial Thromboplastin Time 44.8 SECONDS (23.9-36.7)
[2021-06-06 12:22] LABS: Hepatitis A Antibody IgM Non-Reactive (Nonreactive); Hepatitis B Core IgM Non-Reactive (Nonreactive); Hepatitis B Surface Antigen Non-Reactive (Nonreactive); Hepatitis C Virus Antibody Non-Reactive (Nonreactive)
[2021-06-11] VITALS (10 sets, daily range): BP systolic 108–167; BP diastolic 51–78; PULSE 51–56; RESP 10–18; TEMP 36.4–36.7; O2SAT 97–100
--- NOTE | 2021-06-11 07:03 | US_ITS ---
WS: [id number] ULTRASOUND-GUIDED LIVER BIOPSY HISTORY: Liver mass, metastatic disease of unknown etiology. Procedure, risks, and complications have been explained to the patient. Consent is obtained. History and laboratory studies are reviewed. Skin is cleansed with ChloraPrep and then anesthetized with 1% buffered lidocaine. Core biopsy is per formed with an 18 gauge Achieve needle. Specimen is placed within formalin. Numerous biopsies are obt ained. No complications encountered. Patient will be observed for 2 hour postprocedure for any complications. US/ biopsy liver [id number] IMPRESSION: 1. Uncomplicated core biopsy of metastatic lesions in the liver. 2. Specimen sent for analysis by pathology.
[2021-06-11] MEDS: sodium chloride 0.9% 1,000 ML 30 ML IV (07:43)
[2021-06-11] MEDS: midazolam 1 mg/mL INJ 2 mL IVP (08:05)
[2021-06-11] MEDS: fentaNYL 50 mcg/mL INJ 2mL 25 MCG IVP (08:06)
--- NOTE | 2021-06-11 09:16 | SUR.PHASEII ---
Pt recovering following liver biopsy. Dressing to right lower quadrant D/I. Pt denies pain VSS. Pt allowed to eat at 0930 per orders and may be discharged at 1030 if stable. Pt to hold aspirin until Friday06/13/21.
== END 2021-06-11 10:30 | disposition home or self-care (01) ==
PROVIDERS: Radiology Diagnostic Radiology; PCP Family Medicine; Visit Provider Family Medicine
DX: C22.7 Other specified carcinomas of liver (principal)
CPT/HCPCS: 36415; 47000; 76942; 80074; 82105; 85610; 85730; 88307; 96361; 96374; 96375; J2250; J3010; J7030

== ENCOUNTER 2021-06-15 08:45 | Outpatient (CLI) | payer MEDICARE, OTHER, SELFPAY ==
--- NOTE | 2021-06-15 14:22 | ONC CON_ITS ---
Dr. Ayala New Patient Note Patient: Ean Vargas V Unit #: [id number]: 1950 Dicatated By: Indio Ayala M.D.Date of Visit: Jun 15, 2021 Onc MED New Patient/Consult Referring Physician: Dr. ROHIT DOVE M.D. Chief Complaint: Metastatic malignancy involving the liver. History of Present Illness: This is a 70-year-old man who was recently found to have metastatic malignancy involving the liver. He has multiple medical illnesses including hypertension, hyperlipidemia, type 2 diabetes, coronary artery disease, COPD, benign prostatic hypertrophy, and degenerative disease of the spine. He underwent an L4-5 laminectomy procedure with fusion in 2018. He also has history of melanoma, though the available records include no specific information pertaining to it. He had initially presented with pain in the right mid to lower back, which he initially assumed to be associated with his spine. He was referred to Dr. Sanchez and he then underwent evaluation with MRI of the lumbar spine on 05/22/2021. It showed degenerative changes, but there was no evidence of malignancy in the spine. On a subsequent follow-up visit with Dr. Dove he was noted to have hepatomegaly and his laboratory studies showed slightly elevated total bilirubin and SGOT. Further evaluation with CT abdomen/pelvis on 06/05/2021 showed an infiltrating process throughout the right lobe of the liver which appeared to be most likely neoplastic. There was associated tumor thrombus occluding the main portal vein and right portal vein. There was a small amount of ascites within the abdomen and pelvis. There was moderate splenomegaly. There was mild thickening involving the gastric fundus and antrum and the small bowel. There is more prominent thickening noted involving the duodenal jejunal region. It was felt to be possibly neoplastic. Left lower lobe pulmonary nodules were indeterminate. The prostate was noted to be enlarged. On 06/11/2021 he underwent ultrasound directed needle biopsy of the liver. The preliminary indication from the pathologist is that it does show metastatic carcinoma, most likely adenocarcinoma. Additional studies, including the IHC stains, are still pending. He says his energy is about 50-50. He is still doing light work. ECOG score is 1. His appetite is okay, he does have some early satiety. His weight thus far has been stable. He does not have fever or night sweats. He has an ex-smoker's cough. He does not complain of shortness of breath or chest pain. He has not been having nausea or acid reflux symptoms, and is really not been having pain in the abdominal area. Bowel function has been normal. He has not been aware of any blood in the stool. He had a screening colonoscopy at age 65. He has no complaints other than some urgency with urination. He has had some chronic low back pain. He also reports having neck pain and for years he has had some pain in his left lateral chest wall area. He does not complain of headache. He sometimes has dizziness. He has no numbness/paresthesia or other focal neurologic symptoms. 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 He has a history of malignant melanoma, and he has a history of acute renal failure in 2017. Past Surgical History: His surgical/procedural history includes cataract excision, excision of malignant melanoma, tonsillectomy, coronary bypass surgery in 2019, L4-5 laminectomy with russell fixation and fusion in 2017, cholecystectomy in 2013, and coronary angioplasty/stent placement in 2012. Medications: Aspirin 1 Tablet (of 325 mg) Oral daily, Atorvastatin Calcium 1 Tablet (of 40 mg) Oral daily, Fenofibrate 1 Tablet (of 54 mg) Oral daily, glipiZIDE 1 Tablet (of 5 mg) Oral daily, Isosorbide Mononitrate ER 1 Tablet (of 30 mg) Tablet SR 24 HR Oral daily, Metoprolol Succinate 150 mg Capsule SR 12 HR Oral b.i.d., Tamsulosin HCl 1 Capsule (of 0.4 mg) Oral daily Allergies: Codeine Sulfate and Ketoconazole. Social History: Mr. Vargas is . 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 He has a history of smoking 1-1/2 packs of cigarettes daily for 50 years. He quit smoking in 2019. He has had moderate alcohol use, reported that 2 shots of whiskey every evening, but he quit drinking 2 months ago. Family History: Father of heart failure at age 83. He also had diabetes. Mother of stroke at age 82. She also had diabetes and heart disease. One sister is in good health. Review Of Symptoms: Constitutional - His energy is about 50/50. He is able to do light work. Appetite is still okay, but he does have some early satiety. His weight is stable. He does not have fever or night sweats. ECOG score is 1, Eyes - No change in vision, ENMT - He has hearing loss. No tinnitus. He has sinus drainage. No mouth sores. No sore throat or difficulty swallowing, Hematologic/Lymphatic - He has easy bruising, Respiratory - No shortness of breath. He has an ex-smoker's cough. No pleuritic pain or hemoptysis, Cardiovascular - No angina pain. No palpitations, Gastrointestinal - No nausea or vomiting. No heartburn or acid reflux. No diarrhea or constipation. No blood in the stool or black stools. He had a screening colonoscopy at age 65, Genitourinary (M) - No dysuria or hematuria. No urinary frequency. He has some urgency with urination but no incontinence, Musculoskeletal - He has had chronic low back pain and neck pain. Is also had some chronic pain in the left lateral chest wall, Integumentary - He has a history of melanoma. He also has seborrhea. He is followed by Dr. Maharaj, Neurologic - No headache. He has had some dizziness. No numbness or tingling. No other focal neurologic symptoms, Psychiatric - No anxiety or depression. He has had some difficulty sleeping due to the pain. Vital Signs: Performed on Jun 15, 2021 09:50: 0, 3, 26.61, 2.07 sq.m, 71 in, 98 %, 61 /min, 18 /min, 164/72 mm(hg) (HIGH), 98.0 F (LOW), and 190.8 lbs (HIGH). Physical Examination: Constitutional - He still looks pretty good generally, Eyes - Sclerae nonicteric. Conjunctivae clear, ENMT - No lesions noted in the oral cavity, Neck - No mass or thyromegaly, Hematologic/Lymphatic - No cervical, clavicular, or axillary adenopathy, Respiratory - Lungs sound clear with diminished air movement bilaterally, Cardiovascular - Heart rhythm is regular. There is no murmur, gallop, or rub noted, Abdomen - Mildly distended. Liver does not appear to be overtly enlarged. I am not able to palpate the spleen. There is no abdominal mass or ascites noted and there is no inguinal adenopathy, Back/Spine - No bony tenderness in the spine or ribs, Extremities - There are mild venous stasis changes bilaterally. There is no edema. Pedal pulses are palpable bilaterally, Integumentary - No rashes. No suspicious skin lesions noted, Neurologic - No focal neurologic deficits noted. Problem List: 1. Metastatic malignancy involving the liver, most likely adenocarcinoma. Additional pathologic studies are pending. 2. He has a prior history of melanoma. Details are unavailable at this time. 3. Hypertension. 4. Hyperlipidemia. 5. Type 2 diabetes. 6. Coronary artery disease. 7. COPD. 8. Benign prostatic hypertrophy. 9. He had an episode of acute renal failure in January 2017, presumed secondary to BPH. 10. Degenerative disease of the spine. Problems Addressed with this Encounter and Plan: Patient recently diagnosed with metastatic malignancy involving the liver. This appears most likely to be adenocarcinoma, though the primary site has not been determined. Additional pathologic studies, including IHC stains, are still pending. He still has relatively good performance status. We discussed the fact that he has a metastatic process involving the liver and that any treatment will be palliative and not curative. Treatment options may potentially include chemotherapy, targeted therapy, and/or immunotherapy depending on the primary source of the malignancy and final pathologic analysis, which will include next generation sequencing. Those studies are either in progress now or they are being requested. It will likely take 1 to 2 weeks to get those results. In the meantime, I also want to schedule him for staging PET/CT. I also will try and get more information on his malignant melanoma, though it will be a moot point if this is confirmed to be an adenocarcinoma. He also will be given a prescription for immediate release oxycodone to take as needed for pain. Signed By: Indio Ayala M.D. <<Signature on File>>
== END 2021-06-15 08:46 | disposition home or self-care (01) ==
PROVIDERS: PCP Family Medicine; Visit Provider Internal Medicine Medical Oncology
DX: C78.7 Secondary malignant neoplasm of liver and intrahepatic bile duct (principal); Z85.820 Personal history of malignant melanoma of skin; I10 Essential (primary) hypertension; E78.5 Hyperlipidemia, unspecified; E11.9 Type 2 diabetes mellitus without complications; I25.10 Atherosclerotic heart disease of native coronary artery without angina pectoris; J44.9 Chronic obstructive pulmonary disease, unspecified; N40.0 Benign prostatic hyperplasia without lower urinary tract symptoms; M47.9 Spondylosis, unspecified
CPT/HCPCS: 99205

== ENCOUNTER 2021-07-20 10:17 | Outpatient (CLI) | payer MEDICARE, SELFPAY ==
[2021-07-20 11:55] LABS: Basophils % 0.7 %; Eosinophils % 0.7 %; Hemoglobin 12.6 g/dL (11.7-16.6); Lymphocytes # 0.6 10^3/uL (0.8-4.8); Lymphocytes % 11.3 %; Mean Corpuscular HGB Conc 34.1 g/dL (30.0-36.0); Mean Corpuscular Hemoglobin 29.7 pg (28.0-34.0); Mean Corpuscular Volume 87.3 fl (80-94); Mean Platelet Volume 10.1 fL (7.4-10.4); Monocytes # 0.6 10^3/uL (0.2-0.9); Monocytes % 10.7 %; Neutrophils # 4.11 10^3/uL (1.8-7.7); Neutrophils % 76.2 %; Nucleated Red Blood Cells % 0 %; Platelet Count 107 10^3/cmm (130-400); Red Blood Count 4.24 10^6/uL (4.1-5.3); Red Cell Distribution Width 15.9 % (12.1-15.1); White Blood Count 5.4 10^3/uL (4.0-10.0)
[2021-07-20 12:11] LABS: Alanine Aminotransferase 46 U/L (0-41); Albumin Level 3.3 g/dL (3.5-5.2); Alkaline Phosphatase 364 IU/L (40-130); Anion Gap 13.6 (5-19); Aspartate Amino Transferase 111 U/L (0-40); Blood Urea Nitrogen 18 mg/dL (8-23); Calcium 12.8 mg/dL (8.5-10.5); Carbon Dioxide 25 mmol/L (22-29); Chloride 103 mmol/L (98-107); Globulin 3.6 g/dL (1.3-4.6); Glomerular Filtration Rate 95.6 mL/min (90-130); Glucose 128 mg/dL (65-115); Osmolality Calculated 290 mOsm/kg (285-295); Potassium 3.6 mmol/L (3.5-5.1); Sodium 138 mmol/L (136-145); Total Bilirubin 4.2 mg/dL (0.15-1.2); Total Protein 6.9 g/dL (6.6-8.7)
--- NOTE | 2021-07-20 17:32 | ONC FU_ITS ---
Dr. Ayala Patient Follow-Up Note Patient: Ean Vargas V Unit #: [id number]: 1950 Dicatated By: Indio Ayala M.D.Date of Visit:Jul 20, 2021 Onc Med Follow-up/Prog Note Chief Complaint: Cholangiocarcinoma. History of Present Illness: This is a 71 year-old man with metastatic adenocarcinoma involving the liver, most likely from bile duct primary. He has multiple medical illnesses including hypertension, hyperlipidemia, type 2 diabetes, coronary artery disease, COPD, benign prostatic hypertrophy, and degenerative disease of the spine. He underwent an L4-5 laminectomy procedure with fusion in 2018. He also has history of melanoma. He had initially presented with pain in the right mid to lower back, which he initially assumed to be associated with his spine. He was referred to Dr. Sanchez and he then underwent evaluation with MRI of the lumbar spine on 05/22/2021. It showed degenerative changes, but there was no evidence of malignancy in the spine. On a subsequent follow-up visit with Dr. Javier he was noted to have hepatomegaly and his laboratory studies showed slightly elevated total bilirubin and SGOT. Further evaluation with CT abdomen/pelvis on 06/05/2021 showed an infiltrating process throughout the right lobe of the liver which appeared to be most likely neoplastic. There was associated tumor thrombus occluding the main portal vein and right portal vein. There was a small amount of ascites within the abdomen and pelvis. There was moderate splenomegaly. There was mild thickening involving the gastric fundus and antrum and the small bowel. There is more prominent thickening noted involving the duodenal jejunal region. It was felt to be possibly neoplastic. Left lower lobe pulmonary nodules were indeterminate. The prostate was noted to be enlarged. On 06/11/2021 he underwent ultrasound directed needle biopsy of the liver. Pathology showed metastatic adenocarcinoma with the most likely primary sites being bile duct, pancreas, or lung. I had seen him initially on 06/15/2021. A staging PET/CT on 06/23/2021 showed infiltrating malignancy throughout the right hepatic lobe with a secondary lesion at the anterior left hepatic lobe. A mild amount of abdominal ascites was noted. An 8 mm left lower lobe pulmonary nodule was noted to be FDG negative and a right upper lobe groundglass opacity also was negative. Other scattered lung nodules were too small to characterize. He then had further evaluation with next generation sequencing and and [place] GPSai study. 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 The next generation sequencing show no actionable mutations. The tumor was MSI stable with low mutational burden. He is seen now for a follow-up visit. He has not been feeling good. He has had decline in energy and activity tolerance. His daughter notes that he sleeps a lot. His appetite is poor, and he has early satiety. He is having trouble getting liquid or solid food to go down, mainly because he just feels over full. His weight is down 6 pounds. He does not have fever or night sweats. He occasionally has cough. He does not complain of shortness of breath or chest pain. He has not had nausea or vomiting. He does have some acid reflux. Is also having some constipation. He is not voiding as much, and his urine is dark. He has back pain. He does not complain of headache. He does have some dizziness. He has no numbness/paresthesia or other focal neurologic symptoms. Medications: Aspirin 1 Tablet (of 325 mg) Oral daily, Atorvastatin Calcium 1 Tablet (of 40 mg) Oral daily, Fenofibrate 1 Tablet (of 54 mg) Oral daily, glipiZIDE 1 Tablet (of 5 mg) Oral daily, Isosorbide Mononitrate ER 1 Tablet (of 30 mg) Tablet SR 24 HR Oral daily, Metoprolol Succinate 150 mg Capsule SR 12 HR Oral b.i.d., Tamsulosin HCl 1 Capsule (of 0.4 mg) Oral daily, traMADol HCl 1 Tablet (of 50 mg) Oral daily Allergies: Codeine Sulfate and Ketoconazole. Vital Signs: Weight is 184 pounds. Blood pressure 178/78, pulse 76, respirations 18, temp 97.1 degrees, and oxygen saturation 99%. Physical Examination: Constitutional - He appears generally weak, Eyes - He appears overtly icteric now. Conjunctivae clear, ENMT - No lesions noted in the oral cavity, Hematologic/Lymphatic - No cervical, clavicular, or axillary adenopathy, Respiratory - Lungs sound clear with diminished air movement bilaterally, Cardiovascular - Heart rhythm is regular. There is no murmur, gallop, or rub noted, Abdomen - Distended but soft. Liver does not appear to be overtly enlarged. Spleen is not palpable. There is no abdominal mass or ascites noted and there is no inguinal adenopathy, Extremities - There are mild venous stasis changes bilaterally and there is mild lower extremity edema, Neurologic - No focal neurologic deficits noted. Problem List: 1. 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 2. He has a prior history of melanoma. Details are unavailable at this time. 3. Hypertension. 4. Hyperlipidemia. 5. Type 2 diabetes. 6. Coronary artery disease. 7. COPD. 8. Benign prostatic hypertrophy. 9. He had an episode of acute renal failure in January 2017, presumed secondary to BPH. 10. Degenerative disease of the spine. Problems Addressed with this Encounter and Plan: Patient with metastatic adenocarcinoma involving the liver. This appears most likely to be from primary cholangiocarcinoma. By PET/CT there is fairly extensive involvement in the right hepatic lobe as well and area of involvement in the left hepatic lobe. Since his initial visit on 06/15/2021 there has been decline in performance status, and he appears now to have become jaundiced. We discussed the fact that this disease is not amenable to surgery or radiation. Based on the results of his next generation sequencing, there will not be any potential for use of targeted therapy or immunotherapy. The only treatment option would be a trial of chemotherapy with cisplatin/gemcitabine. This would have significant risk for toxicity with relatively likelihood of low benefit, response rates in the range of 25%. They are going to take some time to think about this, but the best option in this situation may be symptomatic/supportive care with hospice. I will go ahead and repeat lab studies today, to include a CBC and comprehensive metabolic profile. I will plan to talk to him next week regarding any decision for further management. The overall prognosis, though, is poor. Signed By: Indio Ayala M.D. <<Signature on File>>
== END 2021-07-20 10:18 | disposition home or self-care (01) ==
LOC: ONCMED 10:20
PROVIDERS: PCP Family Medicine; Visit Provider Internal Medicine Medical Oncology
DX: C22.1 Intrahepatic bile duct carcinoma (principal); I10 Essential (primary) hypertension; E78.5 Hyperlipidemia, unspecified; E11.59 Type 2 diabetes mellitus with other circulatory complications; I25.10 Atherosclerotic heart disease of native coronary artery without angina pectoris; J44.9 Chronic obstructive pulmonary disease, unspecified; N40.0 Benign prostatic hyperplasia without lower urinary tract symptoms; M47.9 Spondylosis, unspecified; Z85.820 Personal history of malignant melanoma of skin; Z79.899 Other long term (current) drug therapy
CPT/HCPCS: 36415; 80053; 85025; 99215

== ENCOUNTER 2021-07-23 15:02 | Outpatient (CLI) | payer MEDICARE, SELFPAY ==
[2021-07-23 16:05] LABS: Anion Gap 16.6 (5-19); Blood Urea Nitrogen 24 mg/dL (8-23); Calcium 12.9 mg/dL (8.5-10.5); Carbon Dioxide 24 mmol/L (22-29); Chloride 104 mmol/L (98-107); Glomerular Filtration Rate 95.6 mL/min (90-130); Glucose 150 mg/dL (65-115); Osmolality Calculated 299 mOsm/kg (285-295); Potassium 3.6 mmol/L (3.5-5.1); Sodium 141 mmol/L (136-145)
== END 2021-07-23 15:03 | disposition home or self-care (01) ==
LOC: ONCMED 15:05
PROVIDERS: PCP Family Medicine; Visit Provider Internal Medicine Medical Oncology
DX: C22.1 Intrahepatic bile duct carcinoma (principal)
CPT/HCPCS: 36415; 80048

== ENCOUNTER 2021-07-24 08:34 | Outpatient (CLI) | payer MEDICARE, SELFPAY ==
[2021-07-24] MEDS: sodium chloride 0.9% 500 ML 999 ML IV (16:15)
[2021-07-24] MEDS: zoledronic acid 4 MG in sodium chloride 0.9% (100 ml) 100 ML 420 MG IV (16:15)
[2021-07-24 17:05] LABS: Ammonia 67 umol/L (16-60)
== END 2021-07-24 08:35 | disposition home or self-care (01) ==
LOC: ONCMED 08:36
PROVIDERS: PCP Family Medicine; Visit Provider Internal Medicine Medical Oncology
DX: C22.1 Intrahepatic bile duct carcinoma (principal); Z79.899 Other long term (current) drug therapy
CPT/HCPCS: 82140; 96360; 96365; J3489; J7040

== ENCOUNTER 2021-07-26 00:33 | Emergency (ER) | payer MEDICARE, SELFPAY ==
[2021-07-26 00:59] VITALS: BP 127/69; PULSE 63; RESP 18; TEMP 36.1; O2SAT 97; BMI 28.8
--- NOTE | 2021-07-26 01:10 | W.ED.OVERDOS ---
HPI - Overdose General: Chief Complaint: Overdose Stated Complaint: Took Morning and Night pills together Time Seen by Provider: 07/26/21 00:44 History of Present Illness: HPI Narrative: Patient took his morning and evening meds tonight. Patient does not have any symptoms. Patient currently under treatment for cancer. complaint: accidental overdose Onset (ago): minute(s) Review of Systems Narrative: Patient took his morning and evening medicines by accident tonight. Const: Denies: fever(s), chills or body aches Eyes: Denies: change in vision or blurry vision ENMT: Denies: throat pain or nasal congestion Card: Denies: chest pain or dyspnea on exertion Resp: Denies: dyspnea, productive cough or non-productive cough GI: Denies: abdominal pain, nausea or vomiting : Denies: difficulty urinating Musc: Denies: extremity pain Skin/Breast: Denies: rash Neuro: Denies: headache(s) Psych: Denies: anxiety or depression Benoit/Lymph: Denies: easy bruising PFSH ED PFSH: Medical History Anxiety COPD (chronic obstructive pulmonary disease) Coronary artery disease Diabetes mellitus Fusion of lumbar spine Hard of hearing History of BPH History of malignant melanoma Hyperlipidemia PVD (peripheral vascular disease) Skin cancer SOB (shortness of breath) Surgical History Arthrodesis status H/O cataract removal with insertion of prosthetic lens History of cholecystectomy History of lumbar fusion (~06/01/18) L4-5 laminectomy/fusion/fixation Hx of CABG Hx of coronary angioplasty Hx of tonsillectomy Family History Father , AGE 84 CAD (coronary artery disease) Hypertension Diabetes Myocardial infarction Mother , AGE 83 Hypertension Diabetes Stroke Social History Quit status (tobacco): has quit using tobacco Second hand smoke exposure: No Smoking risk assessment/counseling performed?: No Alcohol intake: current Alcohol intake frequency: 3 or more drinks per day Lives independently: Yes Marital status: Single Current occupational status: retired History of recent travel: No Physical Exam Const: COMMON NORMALS: no acute distress GENERAL APPEARANCE: cooperative Eye: CONJUNCTIVA: Yes conjunctival abnormal positive bilateral other (Jaundice) Resp: COMMON NORMALS: normal respiratory effort Cardio: COMMON NORMALS: regular rate RATE: regular rate Skin: OTHER: Slightly jaundiced Course Vital Signs: Vital signs: Vital Signs Temperature 96.9 F L 07/26/21 00:59 Pulse Rate 63 07/26/21 00:59 Respiratory Rate 18 07/26/21 00:59 Blood Pressure 127/69 07/26/21 00:59 Pulse Oximetry 97 07/26/21 00:59 MDM - Overdose MDM Narrative: Medical decision making narrative: Patient presents ER with end-stage liver cancer. Patient doubled up on his medicines tonight by accident. It appears that he most likely took his cholesterol medication his fenofibrate and his glipizide and metoprolol tonight as well his morning dose. Patient stable with no complaints or problems. EKG consistent with previous. Blood glucose was 90. Patient will be discharged home. Lab Data: Labs: Lab Results 07/26/21 01:35 POC Glucose 90 mg/dL mg/dL (70-110) EKG Data^: EKG 1: EKG interpretation date: 07/26/21 EKG interpretation time: 01:32 Computer generated interpretation: Sinus rhythm ventricular rate 64 bpm AR interval 153 ms QRS durations 113 ms QT is 431 ms has incomplete right bundle branch block. Discharge Plan Discharge Patient Disposition: Home Clinical Impression: Drug overdose Qualifiers: Encounter type: initial encounter Injury intent: accidental or unintentional Qualified Code(s): T50.901A - Poisoning by unspecified drugs, medicaments and biological substances, accidental (unintentional), initial encounter Condition: Stable Prescriptions: No Action ciclopirox 0.77 % cream 1 applic topical BID Qty: 30 RF: 2 isosorbide mononitrate 30 mg tablet extended release 24 hr 30 mg PO BEDTIME Qty: 90 RF: 3 atorvastatin 40 mg tablet 40 mg PO DAILY Qty: 90 RF: 3 nitroglycerin 0.4 mg tablet, sublingual See Rx Instructions .ROUTE .COMPLEX Qty: 25 RF: 1 aspirin 325 mg Tablet 325 mg PO DAILY RF: 0 Hold Instructions: Resume on 06/13/21. Resume aspirin on Friday fenofibrate 54 mg tablet 54 mg PO DAILY RF: 0 glipizide 5 mg tablet 10 mg PO DAILY RF: 0 tamsulosin 0.4 mg capsule 0.8 mg PO DAILY RF: 0 metoprolol tartrate 100 mg tablet 150 mg PO BID Qty: 180 RF: 3 Discharge Orders: Discharge ED (Routine); Ordered 07/26/21 Ordered By: Mayank Hightower Referrals: Gulshan Javier MD [Primary Care Provider] - Discharge Diet: Usual diet Discharge Activity: Resume usual activity Activity Restrictions/Additional Instructions: Follow-up with your family medical provider as needed and/or return to the ER as needed.. Coding Level of Care Code ED Scale Reclamation Tender for Chg Fwd Exam Expanded Problem Focused
--- NOTE | 2021-07-26 01:11 | ECG_ITS ---
[facility] Test Date: 2021-07-26 Pat Name: Ean Vargas Department: Room: Gender: Male Program Director: : 1950 Requested By: Mayank Hightower Order Number: [id number] Sid MD: Ranjan Adams M.D. Measurements Intervals [place] Rate: 64 P: 38 [place]: 153 QRS: 1 QRSD: 113 T: 23 QT: 431 QTc: 445 Interpretive Statements SINUS RHYTHM LOW QRS VOLTAGE IN PRECORDIAL LEADS [QRS DEFLECTION < 1.0 mV IN CHEST LEADS] INCOMPLETE RIGHT BUNDLE BRANCH BLOCK [90+ ms QRS DURATION, TERMINAL R IN V1/V2, 40+ ms S IN I/aVL/V4/V5/V6] ST DEVIATION AND MODERATE T-WAVE ABNORMALITY, CONSIDER ANTERIOR ISCHEMIA [-0.1+ mV T-WAVE IN V3/V4] Compared to ECG 07/31/2020 13:34:02 Low QRS voltage now present Incomplete right bundle-branch block now present T-wave abnormality now present Possible ischemia now present ST (T wave) deviation no longer present Electronically Signed On 07-26-2021 22:39:10 [employer] by Ranjan Adams M.D. [email or web address]
[2021-07-26 01:40] LABS: Glucose Point of Care 90 mg/dL (70-110)
[2021-07-26 01:49] VITALS: BP 127/69; PULSE 63; RESP 18; O2SAT 97
== END 2021-07-26 01:45 | disposition home or self-care (01) ==
PROVIDERS: Emergency Provider Nurse Practitioner Family; PCP Family Medicine
DX: T50.901A Poisoning by unspecified drugs, medicaments and biological substances, accidental (unintentional), initial encounter (principal); Z79.82 Long term (current) use of aspirin; Z79.84 Long term (current) use of oral hypoglycemic drugs; J44.9 Chronic obstructive pulmonary disease, unspecified; I25.10 Atherosclerotic heart disease of native coronary artery without angina pectoris; E11.9 Type 2 diabetes mellitus without complications; E78.5 Hyperlipidemia, unspecified; Z95.1 Presence of aortocoronary bypass graft; Z98.61 Coronary angioplasty status; Z87.891 Personal history of nicotine dependence
CPT/HCPCS: 36416; 82962; 93005; 99282